=== PATIENT | female | born 1980 | race Caucasian/White ===

== ENCOUNTER 2017-08-10 15:30 | Outpatient (RCR) | payer OTHER, SELFPAY ==
--- NOTE | 2017-07-25 11:10 | HP.PTEVAL_ITS ---
Patient's Visit Information ROMAN LEVIN is a 37 year old F referred to Physical Therapy by Loyda Nieto PA-C with a diagnosis of B LE pain. Date of Evaluation: 07/25/17 Physical Therapist: Ankit Muhammad PT, - Visit Plan Frequency: 1x/Week Duration: 1 Week Plan: Issue orthoics, fit them appropriately into shoe, and edu on orthotic care next visit - Subjective Subjective: Pt reports she has had bilat foot pain for a chronic period of time. Pt reports she has had bilat bunyonectomies performed 4 years ago. 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 Pt reports she has good sensation in her feet. Pt has had orthotics previously. Pt reports she has pain in the bottom of her foot near the arch, and that pain will radiate up to the top of her foot. Pt reports her main goal is to get fit for orthotics this date. 0/10 pain at rest, 5/10 at worst - Pain B foot pain Pain Intensity (Out of 10): 0 Pain Intensity Range: 5 - Objective Palpation: Pt is sore along her spring ligament and platarfascia in B feet. No pbvious deformity. Neuro: B LE sensation is WNL to light touch. Ankle ROM: B ankle DF= 2, PF= 65. MMT: B ankles 5/5 throughout. Leg length: B LE's equal. Gait: Early pronation during stance phase - Goals Goal 1:: Pt will be issued orthotics and edu on proper care for orthotics on next Pt visit Goal Time Frame: 1 Week - Rehabilitation Potential Physical Therapy Diagnosis: Pt has B foot pain and early pronation during stance phase secondary to pes planus in B ft Rehabilitation Potential: Good - Anticipated Interventions Patient/Client Instruction: Educate patient on: Condition, Plan of Care For the Purpose of:: To improve self management Thank you for the opportunity to evaluate your patient. For Medicare and Medicare HMO plans, please review the plan of care and approve it. It will need to be FAXED BACK to us at [phone] for Medicare purposes. Please let me know if there are questions or concerns regarding this plan of care. Physician Signature: Date:
--- NOTE | 2017-08-10 15:53 | HP.PTDCSUM ---
HP - PT D/C Summary It has been my pleasure to treat ROMAN LEVIN under orders from Loyda Nieto PA-C, for the diagnosis of B LE pain for a total of 2 visit(s). Discharge Date: 08/10/17 Please see the following information for a summary of their discharge status. - Subjective Subjective: Pt wants orthotics, has had them before and does not need education. - Pain B foot pain Pain Intensity (Out of 10): 0 - Goals Goal 1:: Pt will be issued orthotics and edu on proper care for orthotics on next Pt visit Goal Progress: Goal Met - Plan Plan: D/C, pt to [facility] she has concerns or questions with the orthotics. - D/C Information Discharge Comments: Pt I in use of her new orthotics and will call for modification if needed. If there are questions or concerns regarding this patient's physical therapy, please feel free to call me at [phone]. Thank you for the referral of this patient. Sincerely, Lisandro Love, DPT, OC
== END 2017-08-10 19:00 | disposition home or self-care (01) ==
LOC: PT 15:30
PROVIDERS: Family Provider Family Medicine; PCP Family Medicine; Visit Provider Family Medicine
DX: M79.604 Pain in right leg (principal); M79.605 Pain in left leg
CPT/HCPCS: 97161; 97760

== ENCOUNTER → 2017-08-22 09:02 | Outpatient (CLI) | payer OTHER, SELFPAY ==
[2017-08-22 10:27] LABS: Thyroid Stim Hormone (TSH) 5.31 uIU/mL (0.358-3.74)
== END ==
PROVIDERS: Family Provider Family Medicine; PCP Family Medicine; Visit Provider Family Medicine
DX: E03.9 Hypothyroidism, unspecified (principal)
CPT/HCPCS: 36415; 84443

== ENCOUNTER → 2017-12-22 07:48 | Outpatient (CLI) | payer OTHER, SELFPAY ==
[2017-12-22 10:27] LABS: Thyroid Stim Hormone (TSH) 3.81 uIU/mL (0.358-3.74)
== END ==
PROVIDERS: Family Provider Family Medicine; PCP Family Medicine; Visit Provider Family Medicine
DX: E03.9 Hypothyroidism, unspecified (principal)
CPT/HCPCS: 36415; 84443

== ENCOUNTER → 2018-02-14 07:40 | Outpatient (CLI) | payer OTHER, SELFPAY ==
--- NOTE | 2018-02-14 | CYSPIN_PTH ---
PATIENT: ROMAN LEVIN LOC: LAB U#:[id number] AGE/SX: 45/F ROOM: RE02/14/[address]: Loyda Nieto PA-C : 1980 BED: DIS: SPEC #: [id number] RECD: 02/14/18 08:28 STATUS: CHERYL MIKA #: [id number] PAULINA: 02/14/18 00:[address]: Loyda Nieto DEPT: CYTOLOGY RECD BY: Kota Garcia Tissues: Urine Procedures: Pap Stain (control) Special Stain Group II Cytospin Fluid HEADER OPERATION: Not noted PRE-OP DIAGNOSIS: Hematuria TISSUE SUBMITTED: Urine for cytology DIAGNOSIS CYTOLOGY Urine for cytology (cytospin): Negative for malignant cells. See cytology study and comment. YULIA:jas 02/15/18 COMMENT Clinical correlation and appropriate follow up are necessary. CYTOLOGY STUDY Slides are reviewed. The specimen predominantly consists of benign squamous cells and neutrophils. CYTOLOGY GROSS Received is 60 ml of yellow cloudy fluid labeled with the patient's name and and designated per the requisition as urine. Submitted for cytology preparation. 02/14/18 TC:2 CPT: 35449
[2018-02-14 07:51] LABS: Cytology, Body Fluid / CSF SEE PATHOLOGY REPORT
== END ==
PROVIDERS: Family Provider Family Medicine; PCP Family Medicine; Visit Provider Family Medicine
DX: R31.9 Hematuria, unspecified (principal)
CPT/HCPCS: 88108; 88313

== ENCOUNTER → 2018-08-01 07:56 | Outpatient (CLI) | payer OTHER, SELFPAY ==
[2018-08-01 09:37] LABS: Thyroid Stim Hormone (TSH) 2.01 uIU/mL (0.358-3.74)
== END ==
PROVIDERS: Family Provider Family Medicine; PCP Family Medicine; Referring Provider Family Medicine; Visit Provider Family Medicine
DX: E03.9 Hypothyroidism, unspecified (principal)
CPT/HCPCS: 36415; 84443

== ENCOUNTER → 2019-10-04 | Outpatient (CLI) | payer OTHER, SELFPAY ==
[2019-10-04 09:34] LABS: Thyroid Stim Hormone (TSH) 3.99 uIU/mL (0.358-3.74)
== END | disposition home or self-care (01) ==
LOC: LAB 07:48
PROVIDERS: PCP Family Medicine; Referring Provider Family Medicine; Visit Provider Family Medicine
DX: E03.9 Hypothyroidism, unspecified (principal)
CPT/HCPCS: 36415; 84443

== ENCOUNTER → 2020-05-07 17:21 | Outpatient (CLI) | payer OTHER, SELFPAY ==
[2020-05-07 18:15] LABS: Thyroid Stim Hormone (TSH) 1.13 uIU/mL (0.358-3.74)
== END ==
PROVIDERS: PCP Family Medicine; Visit Provider Family Medicine
DX: E03.9 Hypothyroidism, unspecified (principal)
CPT/HCPCS: 36415; 84443

== ENCOUNTER → 2020-12-17 12:29 | Outpatient (CLI) | payer OTHER, SELFPAY ==
--- NOTE | 2020-12-17 12:45 | BI_ITS ---
MAMMOGRAPHY - BILATERAL SCREENING REASON FOR EXAM: Female, 40 years old. Routine annual screening examination. PERTINENT HISTORY: Non-contributory. TECHNIQUE: Digital bilateral breast lukas (3D mammographic acquisition) in the CC and MLO projections. 2-D mediolateral oblique (MLO) and craniocaudad (CC) views of both breasts were obtained. CAD: Full Field Digital Mammography with Computer Added Detection was performed. COMPARISON: None. Baseline examination. FINDINGS: Breast Composition: The breasts are extremely dense, which lowers the sensitivity of mammography. There are no dominant masses or suspicious calcifications. No other significant abnormalities are identified. BI/SCRN MAMM (CAD)W/LUKAS BILAT IMPRESSION: Negative screening mammogram. Yearly followup mammogram recommended. (A) ASSESSMENT CATEGORY: BIRADS Category 1: Negative. A letter regarding these results will be sent to the patient by the facility within 30 days. Approximately 10% of breast cancers are not detected by mammography. A normal mammogram should not delay biopsy of a clinically suspicious abnormality. [id number] Electronically Signed: José Antonio Palacios MD at 14:51 EDT , Service support ,
[2020-12-17 14:04] LABS: ALB/GLOB Ratio 1.2 RATIO (0.9-2.4); AST(SGOT) 15 U/L (15-37); Alanine Aminotransfer ALT/SGPT 28 U/L (13-56); Albumin, Serum 3.8 g/dL (3.2-5.0); Alkaline Phosphatase 50 U/L (45-117); Anion Gap 4 (5-15); BUN 8 mg/dL (7-18); BUN/Creat Ratio 10.4 RATIO (10-20); Calcium,Total 8.8 mg/dL (8.5-10.1); Chloride 104 mmol/L (98-107); Cholesterol 183 mg/dL (200); Creatinine, Serum 0.77 mg/dL (0.55-1.02); EST Glomerular Filtration Rate 88 mL/min (>60); Est Glom Filt Rate - Afr Amer 107 mL/min (>60); Globulin 3.3 g/dL (2.2-4.2); Glucose 62 mg/dL (74-106); High Density Lipoprotein 72 mg/dL; Potassium 4.2 mmol/L (3.5-5.1); Protein, Total 7.1 g/dL (6.4-8.2); Sodium Level 137 mmol/L (136-145); Thyroid Stim Hormone (TSH) 1.71 uIU/mL (0.358-3.74); Triglycerides 63 mg/dL; Very Low Density Lipoprotein 13 mg/dL (5-40)
== END ==
PROVIDERS: PCP Family Medicine; Referring Provider Family Medicine; Visit Provider Family Medicine
DX: E03.9 Hypothyroidism, unspecified (principal); Z12.31 Encounter for screening mammogram for malignant neoplasm of breast; Z13.1 Encounter for screening for diabetes mellitus; Z13.220 Encounter for screening for lipoid disorders
CPT/HCPCS: 36415; 77063; 77067; 80053; 80061; 84443

== ENCOUNTER → 2022-01-18 | Outpatient (CLI) | payer OTHER, SELFPAY ==
[2022-01-18 17:21] LABS: Thyroid Stim Hormone (TSH) 1.77 uIU/mL (0.358-3.74)
== END | disposition home or self-care (01) ==
LOC: LAB 16:10
PROVIDERS: PCP Family Medicine; Referring Provider Family Medicine; Visit Provider Family Medicine
DX: E03.9 Hypothyroidism, unspecified (principal)
CPT/HCPCS: 36415; 84443

== ENCOUNTER → 2022-05-13 | Outpatient (CLI) | payer OTHER, SELFPAY ==
--- NOTE | 2022-05-13 14:19 | US_ITS ---
STUDY: SUPERFICIAL ULTRASOUND - LEFT HAND REASON FOR EXAM: Female, 42 years old. HAND NODULE TECHNIQUE: A superficial ultrasound was performed with real-time and static michaels-scale imaging. COMPARISON: None. FINDINGS: Scanning of the area of interest along the palmar aspect of the left hand shows a 1 x 2 x 4 mm ovoid circumscribed hypoechoic thin-walled nodule within the subcutaneous fat; this hypoechoic nodule is nearly anechoic, containing only minimal low-level internal echoes. This lesion is not hyperechoic as with lipoma. The nodule is avascular shows no surrounding hyperemia. US/Ext Non Vasc Limited/Soft Tiss IMPRESSION: Benign-appearing hypoechoic subcutaneous nodule along the palmar aspect of the hand, most likely a small subcutaneous cyst containing minimal internal cellular debris. This lesion does have characteristics of a lipoma. There is no surrounding hyperemia or wall thickening to indicate abscess. Electronically Signed: Med Aguillon MD at 0:50 EST ,
== END | disposition home or self-care (01) ==
LOC: US 14:17
PROVIDERS: PCP Family Medicine; Referring Provider Family Medicine; Visit Provider Family Medicine
DX: R22.30 Localized swelling, mass and lump, unspecified upper limb (principal)
CPT/HCPCS: 76882

== ENCOUNTER → 2023-01-27 | Outpatient (CLI) | payer OTHER, SELFPAY ==
[2023-01-27 18:26] LABS: Absolute Lymphocyte Count 4.73 X10^3/uL (0.83-4.51); Absolute Neutrophil Count 3.9 X10^3/uL (2.0-7.7); Basophil# 0.04 X10^3/uL; Basophil% 0.4 % (0-1); Eosinophils% 1.1 % (0-5); Hematocrit 40.1 % (37-47); Hemoglobin 13.2 g/dL (12.0-15.0); Lymphocyte # 4.73 X10^3/ul (0.83-4.51); Lymphocyte % 50.9 % (19-41); Mean Corp Hgb Conc 32.9 g/dL (32-36); Mean Corpuscular Hgb 30.5 pg (27.0-32.0); Mean Corpuscular Volume 92.6 fL (81-99); Mean Platelet Vol. 11.2 fl (6.2-12.0); Monocyte# 0.49 X10^3/uL; Monocyte% 5.3 % (0-10); NRBC Flagged by Analyzer 0 % (0-5); Neutrophil # 3.92 X10^3/uL (2.7-7.7); Neutrophil % 42.1 % (47-70); Platelet Count 266 K/mm3 (150-450); RBC Distribution Width CV 12.8 % (11.6-14.6); RBC Distribution Width SD 43.8 fl (35.1-43.9); Red Blood Count 4.33 M/mm3 (4.2-5.4); White Blood Count 9.3 K/mm3 (4.4-11.0)
[2023-01-27 19:07] LABS: Thyroid Stim Hormone (TSH) 2.76 uIU/mL (0.358-3.74)
== END | disposition home or self-care (01) ==
LOC: LAB 17:47
PROVIDERS: PCP Family Medicine; Referring Provider Family Medicine; Visit Provider Family Medicine
DX: R79.89 Other specified abnormal findings of blood chemistry (principal); E03.9 Hypothyroidism, unspecified
CPT/HCPCS: 36415; 84443; 85025

== ENCOUNTER 2023-06-13 09:23 | Outpatient (RCR) | payer OTHER, SELFPAY ==
--- NOTE | 2023-06-13 09:54 | HP.PTEVAL ---
Patient's Visit Information Visit Information Visit Information: ROMAN LEVIN is a 43 year old F referred to Physical Therapy by Loyda Nieto PA-C with a diagnosis of s/p bunionectomy. Date of Evaluation: 06/13/23 Physical Therapist: Lisandro Love, DPT, OCS, CSCS Visit Plan Frequency: 2 visits total Plan: DPM orthotics molded and sent out and will call when they come back to fit shoe Subjective Subjective: I had bunionectomy done [address] Cho. Has a couple pairs that are old and broken down. Has some pain in L middle of foot at bootm. Intermittent with being on feet too long. Pain to 4/10 in last weeks and goes away sitting. Activities are pretty normal Wears current ones most of time in work shoes. 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 Pain worse after work. No regular exercises. Objective Objective: Mild pes planus B, transverse arch has flattened B. No tenderness in foot or ankle Full PROM metatrsals and AROM at ankle with 7 degrees DF B and full inv/ev/PF. 5/5 strength ankle motions. Good movement in toes Goals Goal 1:: fit for and I in use of custom orthotics Goal Time Frame: 2-4 Weeks Rehabilitation Potential Physical Therapy Diagnosis: Foot biomechanics that need managed to limit future problems Rehabilitation Potential: Good Anticipated Interventions Patient/Client Instruction: Educate patient on: Condition For the Purpose of:: To decrease pain Orthotics: Shoe insert For the Purpose of:: To decrease pain and To improve nutrient delivery to tissue Text: Thank you for the opportunity to evaluate your patient. For Medicare and Medicare HMO plans, please review the plan of care and approve it. It will need to be FAXED BACK to us at [phone] for Medicare purposes. For Medicare only, by signing this I certify the plan of care. Please let me know if there are questions or concerns regarding this plan of care. Physician Signature: Date:
--- NOTE | 2023-07-05 16:00 | HP.PTDCSUM_ITS ---
Discharge Summary D/C summary: It has been my pleasure to treat ROMAN LEVIN referred by Loyda Nieto PA-C, with the diagnosis of s/p bunionectomy for a total of 2 visit(s). Discharge Date: Please see the following information for a summary of their discharge status. Subjective Subjective: stopped in to [employer] picking supervisor orthotics, declines education appointment or cut to fit. seema had these before Goals Goal 1:: fit for and I in use of custom orthotics Goal Progress: Goal Met Plan Plan: D/C t orthoitc use, pt to call if problems with them. D/C Information d/c sentence: If there are questions or concerns regarding this patient's physical therapy, please feel free to call me at [phone]. Thank you for the referral of this patient. Sincerely, Lisandro Love, DPT, OCS, CSCS
== END 2023-06-13 19:00 | disposition home or self-care (01) ==
LOC: PT 09:23
PROVIDERS: PCP Family Medicine; Referring Provider Family Medicine; Visit Provider Family Medicine
DX: Z98.890 Other specified postprocedural states (principal)
CPT/HCPCS: 97161

== ENCOUNTER → 2024-01-05 | Outpatient (CLI) | payer OTHER, SELFPAY ==
[2024-01-05 13:18] LABS: Thyroid Stim Hormone (TSH) 0.66 uIU/mL (0.358-3.74)
== END | disposition home or self-care (01) ==
LOC: LAB 09:25
PROVIDERS: PCP Family Medicine; Referring Provider Family Medicine; Visit Provider Family Medicine
DX: E03.9 Hypothyroidism, unspecified (principal)
CPT/HCPCS: 36415; 84443

== ENCOUNTER → 2024-01-25 | Outpatient (CLI) | payer OTHER, SELFPAY ==
--- NOTE | 2024-01-25 07:46 | BI_ITS ---
MAMMOGRAPHY - BILATERAL SCREENING REASON FOR EXAM: Female, 43 years old. Routine annual screening examination. PERTINENT HISTORY: Non-contributory. TECHNIQUE: Digital bilateral breast lukas (3D mammographic acquisition) in the CC and MLO projections. 2-D mediolateral oblique (MLO) and craniocaudad (CC) views of both breasts were obtained. CAD: Full Field Digital Mammography with Computer Added Detection was performed. COMPARISON: Comparison is made with prior study December 17, 2020. FINDINGS: Breast Composition: The breasts are extremely dense, which lowers the sensitivity of mammography. There are no dominant masses or suspicious calcifications. No other significant abnormalities are identified. There has been no significant change since the prior study. BI/SCRN MAMM (CAD)W/LUKAS BILAT IMPRESSION: Stable bilateral screening mammogram. Yearly follow-up mammogram recommended. (A) ASSESSMENT CATEGORY: BIRADS Category 1: Negative. A letter regarding these results will be sent to the patient by the facility within 30 days. Approximately 10% of breast cancers are not detected by mammography. A normal mammogram should not delay biopsy of a clinically suspicious abnormality. [id number] Electronically Signed: José Antonio Palacios MD at 8:44 EDT ,
--- NOTE | 2024-01-25 08:09 | RAD_ITS ---
INDICATION: BACK PAIN WITH RADICULOPATHY EXAMINATION/TECHNIQUE: X-RAY - XR Right Hip Unilateral with Pelvis when performed; 3 Views COMPARISON: FINDINGS: PELVIC BONES: No displaced fracture, destructive or sclerotic lesions. Note that overlapping bowel shadows may however obscure fine detail. Sacroiliac joints are unremarkable. No widening of the pubic symphysis. HIPS: The articular structures are unremarkable. No displaced fracture seen in this frontal view. SOFT TISSUES: No soft tissue swelling or gas. RAD/HIP, UNI W/ Pelvis 2-3 Views IMPRESSION: No evidence of displaced pelvic or hip fracture. Electronically Signed: Manohar Dahl DO at 19:51 EDT Reading Location ID and State: [facility] / [place] Tel [phone], Service support ,
--- NOTE | 2024-01-25 08:09 | RAD_ITS ---
STUDY: X-RAY - LUMBAR SPINE REASON FOR EXAM: Female, 43 years old. BACK PAIN WITH RADICULOPATHY TECHNIQUE: 4 view(s) of the lumbar spine were obtained. COMPARISON: None FINDINGS: Normal lumbar lordosis. There is no substantial scoliosis. There is a normal alignment of the vertebrae. Normal vertebral bodies and endplates. Normal disc space heights. The soft tissue structures are unremarkable. RAD/L/S Spine Min 4 Views IMPRESSION: Normal x-ray examination of the lumbar spine. Electronically Signed: Manohar Dahl DO at 21:43 EDT Reading Location ID and State: [facility] / [place] Tel [phone], Service support ,
== END | disposition home or self-care (01) ==
PROVIDERS: PCP Family Medicine; Referring Provider Family Medicine; Visit Provider Family Medicine
DX: Z12.31 Encounter for screening mammogram for malignant neoplasm of breast (principal); M54.10 Radiculopathy, site unspecified
CPT/HCPCS: 72110; 73502; 77063; 77067

== ENCOUNTER → 2024-01-25 | Outpatient (CLI) | payer OTHER, SELFPAY ==
[2024-01-25 09:54] LABS: Absolute Neutrophil Count 3.5 X10^3/uL (2.0-7.7); Basophil# 0.02 X10^3/uL; Basophil% 0.3 % (0-1); Eosinophil# 0.09 X10^3/uL; Eosinophils% 1.5 % (0-5); Lymphocyte % 34.3 % (19-41); Mean Corp Hgb Conc 33.3 g/dL (32-36); Mean Corpuscular Hgb 30.2 pg (27.0-32.0); Mean Corpuscular Volume 90.5 fL (81-99); Mean Platelet Vol. 9.4 fl (6.2-12.0); Monocyte# 0.41 X10^3/uL; Monocyte% 6.7 % (0-10); NRBC Flagged by Analyzer 0 % (0-5); Neutrophil # 3.48 X10^3/uL (2.7-7.7); Neutrophil % 56.9 % (47-70); Platelet Count 320 K/mm3 (150-450); Red Blood Count 4.31 M/mm3 (4.2-5.4); White Blood Count 6.1 K/mm3 (4.4-11.0)
[2024-01-25 10:03] LABS: Erythrocyte Sedimentation Rate < 1 mm/hr (0-30)
[2024-01-25 11:49] LABS: ALB/GLOB Ratio 1.1 RATIO (0.9-2.4); AST(SGOT) 19 U/L (15-37); Alanine Aminotransfer ALT/SGPT 20 U/L (13-56); Albumin, Serum 3.6 g/dL (3.2-5.0); Alkaline Phosphatase 50 U/L (45-117); Anion Gap 5 (5-15); BUN 7 mg/dL (7-18); BUN/Creat Ratio 8.4 RATIO (10-20); CRP < 2.90 mg/L (0.0-3.0); Calcium,Total 8.6 mg/dL (8.5-10.1); Chloride 109 mmol/L (98-107); Creatinine, Serum 0.83 mg/dL (0.55-1.02); EST Glomerular Filtration Rate 80 mL/min (>60); Est Glom Filt Rate - Afr Amer 96 mL/min (>60); Globulin 3.3 g/dL (2.2-4.2); Glucose 73 mg/dL (74-106); Potassium 3.6 mmol/L (3.5-5.1); Protein, Total 6.9 g/dL (6.4-8.2); Sodium Level 139 mmol/L (136-145)
== END | disposition home or self-care (01) ==
LOC: LAB 09:25
PROVIDERS: PCP Family Medicine; Referring Provider Student in an Organized Health Care Education/Training Program; Visit Provider Student in an Organized Health Care Education/Training Program
DX: R19.7 Diarrhea, unspecified (principal)
CPT/HCPCS: 36415; 80053; 82164; 82784; 82785; 83516; 84165; 85025; 85652; 86003; 86005; 86036; 86140; 86225; 86235; 86255; 86256; 86334; 86671

== ENCOUNTER → 2024-01-26 | Outpatient (CLI) | payer OTHER, SELFPAY | END | disposition home or self-care (01) | LOC: LABSPEC 09:13 | PROVIDERS: PCP Family Medicine; Visit Provider Student in an Organized Health Care Education/Training Program | DX: R19.7 Diarrhea, unspecified (principal); K58.9 Irritable bowel syndrome, unspecified | CPT/HCPCS: 82653; 82705; 83630; 83993; 87177; 87209; 87329; 87506 ==

== ENCOUNTER → 2024-02-01 | Outpatient (CLI) | payer OTHER, SELFPAY ==
[2024-02-04 00:08] LABS: Pancreatic Elastase, Fecal > 800 (>200)
== END | disposition home or self-care (01) ==
LOC: LAB 07:21 → LABSPEC 07:22
PROVIDERS: Internal Medicine Gastroenterology; PCP Family Medicine; Referring Provider Student in an Organized Health Care Education/Training Program; Visit Provider Student in an Organized Health Care Education/Training Program
DX: R19.7 Diarrhea, unspecified (principal)
CPT/HCPCS: 82653; 87177; 87209; 87329

== ENCOUNTER → 2024-02-07 | Outpatient (CLI) | payer OTHER, SELFPAY ==
--- NOTE | 2024-02-07 11:15 | US_ITS ---
INDICATION: abdominal pain EXAMINATION: Ultrasound US Abdomen Limited (quadrant) TECHNIQUE: Mendez scale and color doppler imaging was performed of the right upper quadrant. COMPARISON: FINDINGS: LIVER: There is normal echotexture measuring 15.3 cm. No focal hepatic lesion. There is no free fluid. GALLBLADDER AND BILIARY TREE: No shadowing gallstone, pericholecystic fluid or gallbladder wall thickening is demonstrated. The proximal common bile duct measures 5 mm, which is within normal limits for the patient''s age. Songraphic Shay''s sign: Negative. PANCREAS: No focal abnormality is demonstrated in the pancreas. No pancreatic ductal dilatation. RIGHT KIDNEY: 10.4 x 5.7 x 4.2 cm with the cortex is 10 mm. No hydronephrosis. No shadowing calculi. US/Gallbladder IMPRESSION: No acute sonographic abnormality is demonstrated in the right upper quadrant. Electronically Signed: Manohar Dahl DO at 19:10 EDT ,
--- NOTE | 2024-02-07 11:15 | NM_ITS ---
CLINICAL: 43-year-old female with history of chronic nausea. SEMI-SOLID PHASE 99m Tc SULFUR COLLOID GASTRIC EMPTYING STUDY COMPARISON: Gallbladder ultrasound report 02/07/2024 FINDINGS: The patient was administered 1.1 mCi of 99m Tc sulfur colloid mixed with oatmeal and consumed per os. Image acquisitions in the anterior-posterior projections were obtained for 60 minutes. There is prompt visualization of the stomach. There is no gastroesophageal reflux identified. The T ? raw data emptying was calculated to be 35.86 minutes, (Normal: 12-56 minutes). NM/Gastric Emptying Study IMPRESSION: 1. NORMAL 99m Tc sulfur colloid semi-solid phase (oatmeal) gastric emptying imaging examination. A. There is normal and preserved semi-solid phase gastric emptying compared to normal controls. (Beka et al, J Nucl Med Tech 38: 186, 2010). Electronically Signed: Ravinder Fuller DO at 10:41 EDT ,
== END | disposition home or self-care (01) ==
LOC: NM 11:11
PROVIDERS: PCP Family Medicine; Referring Provider Student in an Organized Health Care Education/Training Program; Visit Provider Student in an Organized Health Care Education/Training Program
DX: R10.9 Unspecified abdominal pain (principal); R11.0 Nausea
CPT/HCPCS: 76705; 78264; A9541

== ENCOUNTER → 2024-03-01 | Outpatient (CLI) | payer OTHER, SELFPAY | END | disposition home or self-care (01) | LOC: LAB 14:33 | PROVIDERS: PCP Family Medicine; Referring Provider Family Medicine; Visit Provider Family Medicine | DX: E03.9 Hypothyroidism, unspecified (principal) | CPT/HCPCS: 36415; 84443 ==

== ENCOUNTER 2024-03-22 05:16 | Day surgery (SDC) | payer OTHER, SELFPAY ==
[2024-03-22] VITALS (9 sets, daily range): BP systolic 85–118; BP diastolic 61–73; PULSE 58–67; RESP 14–18; TEMP 35.9–36.2; O2SAT 98–100; BMI 19.3
--- OUTSIDE RECORDS SUMMARY | 2024-03-22 05:18 | XMS RPT_ITS | CCD ---
Author Organization [facility] Care Team Providers Care Marketing Services Vice President Name Role Phone JONNIE REYNOLDS Admitting Unavailable STEELE, JONNIE Attending Unavailable STEELE, JONNIE Primary Care Unavailable STEELE, JONNIE Admitting Unavailable STEELE, JONNIE Attending Unavailable STEELE, JONNIE Primary Care Unavailable Problems Problem Classification Problem Date Documented Da te Episodic/Chronic Other screening for suspected conditions (not mental disorders or infectious disease) (1 source) Other specified abnormal findings of blood chemistry; Translations: [Other specified abnormal findings of blood chemistry] Onset: 01-20-2024 Episodic Thyroid disorders (1 source) Hypothyroidism, unspecified; Translations: [Hypothyroidism, unspecified] Onset: 01-20-2024 Chronic Encounters Encounter Date Encounter Type Care Provider Facility Start: 01-20-2024 ambulatory [facility] Start: 09-07-2023 ambulatory [facility] Payers Date Payer Category Payer Unknown [id number] Unknown [id number] Summary Purpose Family History No Family History Records Found Advance Directives No Advanced Directives Records Found Additional Source Comments INFORMATION SOURCE (unrecogn ized section and content) DATE CREATED AUTHOR 01/22/2024 [facility] FOR RECORDS PERTAINING TO PATIENTS WHO ARE OR HAVE BEEN ENROLLED IN A CHEMICAL DEPENDENCY/SUBSTANCEABUSE PROGRAM, SOME INFORMATION MAY BE OMITTED. This clinical summary was aggregated from multiple sources. Caution should be exercised in using it in the provision of clinical care. This summary normalizes information from multiple sources, and as a consequence, information in this document may materially change the coding, format and clinical context of patient data. In addition, data may be omitted in some cases. CLINICAL DECISIONS SHOULD BE BASED ON THE PRIMARY CLINICAL RECORDS. [facility] [employer] [facility]. provides no warranty or guarantee of the accuracy or completeness of information in this document.
[2024-03-22] MEDS: 0.9% Saline Lock 10 ML Syringe IV (05:57)
[2024-03-22 05:58] LABS: Internal QC Validated? YES +Cl - CLEAR BKGD; Pregnancy, Urine Negative Negative; Record Kit Lot#,Urine Preg 869294
--- NOTE | 2024-03-22 06:24 | PCM.PRE.AN2 ---
ASA Classification* ASA Classification ASA Classification: 2 Assessment & Plan Anesthesia* Anesthesia Assessment Anesthesia Assessment: Discussed sedation and/or anesthesia options, risks, benefits, and alternatives with patient/parents/legal guardian/POA. Questions invited. The patient/parents/legal guardian/POA seems to understand and agrees to proceed with anesthesia plan. Reviewed the physical assessment, medical history, allergy history and patient home medications list prior to surgery/procedure/anesthetic and documented any changes. Performed airway and anesthesia risk assessments. Anesthesia Type Anesthesia Type: MAC History Source History Obtained from:: Patient and Chart Anesthesia Focused Assessment* Temperature: 97.0 F Pulse Rate: 58 Blood Pressure: 118/73 Respiratory Rate: 16 Pulse Ox: 100 Oxygen Delivery Method: Room Air Airway Assessment Mouth opens: >3 cm Mallampati Score: I Teeth Condition: Intact Neck Range of motion (ROM): Full ROM Focused Labs Anesthesia Preop lab: CBC WBC 6.1 K/mm3 (4.4-11.0) 01/25/24 09:32 RBC 4.31 M/mm3 (4.2-5.4) 01/25/24 09:32 Hgb 13.0 g/dL (12.0-15.0) 01/25/24 09:32 Hct 39.0 % (37-47) 01/25/24 09:32 Plt Count 320 K/mm3 (150-450) 01/25/24 09:32 CHEMISTRY Potassium 3.6 mmol/L (3.5-5.1) 01/25/24 09:32 Sodium 139 mmol/L (136-145) 01/25/24 09:32 Phosphorus 3.5 mg/dL (2.5-4.9) 01/05/24 09:37 BUN 7 mg/dL (7-18) 01/25/24 09:32 Creatinine 0.83 mg/dL (0.55-1.02) 01/25/24 09:32 Glucose 73 mg/dL (74-106) L 01/25/24 09:32 TSH 1.720 uIU/mL (0.358-3.740) 03/01/24 14:47 COAG PT 13.0 SECONDS (11.7-14.9) 05/02/14 13:43 Urine Test Negative Negative 03/22/24 05:35 Pre-Assessment Diagnosis/Proposed Procedure Planned Operative Procedure(s): COLONOSCOPY/EGD Anesthesia History Anesthesia History - gleason gear generator: Anesthesia History - gleason gear generator Hx Hospitalization No 03/19/24 11:43 Any Problems With Anesthesia No 03/19/24 11:43 Cholinesterase deficiency No 03/19/24 11:43 You/Your Family Experience No 03/19/24 11:43 fever (hyperthermia) with Relationship Recent Exposure to Contagious No 03/22/24 05:46 Disease Does patient have nerve No 03/19/24 11:43 stimulator Patient instructed to have device shut off --Does patient have Pacemaker No 03/22/24 05:47 or ICD? When Was Last Pacemaker Check QUESTION #4 FULL TEXT: You/Your Family Experience fever (hyperthermia) with Anesthesia Last Oral Intake Last Oral intake: Last Oral Intake NPO since 03:30 03/22/24 05:47 Meds taken in AM with sips of No 03/22/24 05:47 water? Meds patient instructed to take am of surgery Any additional information?: Yes NPO since: 03:30 (sips of water) PONV PONV - gleason gear generator: PONV - gleason gear generator Female Yes 03/19/24 11:43 HX of Motion Sickness Yes 03/19/24 11:43 HX of N/V After Surgery No 03/19/24 11:43 Non-Smoker Yes 03/19/24 11:43 Duration of Surgery greater No 03/19/24 11:43 than 60 minutes Number of Risk Factors 3 03/19/24 11:43 PONV Score Moderate Risk 03/19/24 11:43 Height & Weight Height & Weight: Anesthesia: Height & Weight Height 5 ft 9 in 03/22/24 05:47 Weight: 59.602 kg 03/22/24 05:47 Body Mass Index (BMI) 19.3 03/22/24 05:47 Respiratory Assessment Respiratory Assessment - gleason gear generator: Respiratory Tract Infection Hx - gleason gear generator Hx Respiratory Tract Infection No 03/19/24 11:43 STOP Sleep Apnea STOP Sleep Apnea - gleason gear generator: STOP Sleep Apnea - gleason gear generator Hx Hypertension No 03/19/24 11:43 Hx Sleep Apnea No 03/19/24 11:43 CPAP No 03/19/24 11:43 BIPAP No 03/19/24 11:43 Do you snore loudly (louder No 03/19/24 11:43 than talking or can be heard Do you often feel tired/ No 03/19/24 11:43 fatigued/ sleepy during daytime? Has anyone observed you stop No 03/19/24 11:43 breathing during sleep? STOP Results Negative 03/19/24 11:43 QUESTION #5 FULL TEXT : Do you snore loudly (louder than talking or can be heard through closed doors)? 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 Specify any problems Hx of Preganancy in last 3 No 03/19/24 11:43 Months Nurse Filling Out Transfusion VCHRISTIN 03/19/24 11:43 & Questions: Date: 03/19/24 03/19/24 11:43 Time: 11:44 03/19/24 11:43 Patient unable to answer at this time (ie. confused, unrespo /Reproduction History /Reproductive History - gleason gear generator: /Reproductive Hx- gleason gear generator Hx Now No 03/19/24 11:43 Gestational Age (in weeks): EDC: Hx Hx Para Hx Section SAB No 03/19/24 11:43 Active Medications Active Medications: Current Medications Generic Name Dose Route Start Last Admin Trade Name Freq PRN Reason Stop Dose Admin Sodium Chloride 10 - 40 ml 03/22/24 05:55 03/22/24 05:57 0.9% Saline Lock 10 Ml Syringe IV 10 ml UD PRN Administration SALINE FLUSH PFSH Medical History (Updated 03/19/24 @ 11:43 by Hallie Romero) Wears contact lenses Wears glasses Thyroid disease Easy bruising Blood disorder Back pain Migraine headache Difficulty swallowing Gastric reflux History of irregular heartbeat Atypical nevus of axilla Abdominal cramping in left upper quadrant Hematuria Lymphadenopathy Hyperactive bowel sounds Hypothyroidism Migraine syndrome GERD (gastroesophageal reflux disease) Home Medications ?Medication ?Instructions ?Recorded ?Last Taken ?Type ondansetron 4 mg disintegrating 4 mg PO Q8H 10/21/23 03/17/24 History tablet terconazole 80 mg vaginal 1 supp vaginal QHS PRN PRN 10/21/23 Unknown History suppository cyclobenzaprine 5 mg tablet 5 mg PO DAILY PRN ABD DISCOMFORT 01/25/24 Unknown History dicyclomine 10 mg capsule 10 mg PO BID PRN abdominal pain 01/25/24 03/17/24 Rx #30 caps levothyroxine 75 mcg tablet 75 mcg PO DAILY 03/19/24 03/21/24 History Allergy/AdvReac Type Severity Reaction Status Date / Time No Known Allergies Allergy Verified 03/22/24 05:43 Surgical History (Updated 03/19/24 @ 11:43 by Hallie Romero) History of bunionectomy of both great toes Social History (Updated 10/21/23 @ 09:15 by Marcie Mckoy LPN) household members: spouse and children number of children: 2 leisure activities: exercise Smoking Status: Never smoker alcohol intake: current alcohol intake frequency: holidays/special occasions only Review of Systems (Anesthesia) ROS Narrative System reviewed and no additional complaints, except as documented.
--- NOTE | 2024-03-22 06:30 | COLBX_PTH ---
PATHOLOGY RESULTS PATIENT: ROMAN LEVIN LOC: EN U#:[id number] AGE/SX: 43/F ROOM: RE03/22/[address]: Dr. Ry Tirado DO : 1980 BED: DIS: 03/22/2024 SPEC #: [id number] RECD: 03/22/24 10:43 STATUS: CHERYL REYasmin #: [id number] PAULINA: 03/22/24 06:[address]: Ry Tirado DEPT: SURGICAL PATHOLOGY RECD BY: Judd Hargrove ENTERED: 03/22/24 11:42 SP TYPE: COLON BX OTHR DR: Loyda Nieto PA-C Tissues: Duodenum, NOS Gastric mucous membrane Esophagus, NOS Ileum, NOS COLON BIOPSY Procedures: Special Stain Group I Surgery Specimen Level IV Alcian Blue/PAS (control) HEADER OPERATION: Colonoscopy, EGD with biopsy PRE-OP DIAGNOSIS: GI symptoms including diarrhea, bloating, nausea, rectal pain, heartburn, and dysphagia TISSUE SUBMITTED: A - Duodenum biopsy, B- Gastric body biopsy, C- Distal esophagus biopsy, D- Terminal ileum biopsy, E- Random colonic biopsy MICROSCOPIC DIAGNOSIS A. Duodenum, biopsy: Fragments of duodenal mucosa, no pathologic diagnosis. B. Gastric body, biopsy: Mild gastritis. See microscopic description and comment. C. Distal esophagus, biopsy: Fragments of gastroesophageal mucosa with chronic inflammation. Intestinal metaplasia (goblet cell metaplasia) not identified. See comment. D. Terminal ileum, biopsy: A fragment of small intestinal mucosa, no pathologic diagnosis. A fragment of colonic mucosa, no pathologic diagnosis. E. Colon, random biopsy: Fragments of colonic mucosa, no pathologic diagnosis. 03/23/2024 COMMENT B. The results of immunohistochemistry for Helicobacter pylori will be reported separately ([id number]). C. Alcian blue/PAS stain with matched control is used in the evaluation of the specimen. MICROSCOPIC DESCRIPTION Slides are reviewed. B. The specimen shows fragments of gastric mucosa with chronic inflammatory cell infiltrates in the lamina propria consisting of lymphocytes and plasma cells, consistent with mild chronic gastritis. GROSS DESCRIPTION A. Received in fixative is one container labeled with the patient's name and designated Duodenum biopsy. The specimen consists of multiple irregular fragments of light waddell soft tissue that in aggregate measure 0.8 x 0.8 x 0.1 cm. The specimen is totally submitted in one cassette. B. Received in fixative is one container labeled with the patient's name and designated Gastric body biopsy. The specimen consists of multiple irregular fragments of light waddell soft tissue that in aggregate measure 1.0 x 0.5 x 0.1 cm. The specimen is totally submitted in one cassette. C. Received in fixative is one container labeled with the patient's name and designated Distal esophagus biopsy. The specimen consists of multiple irregular fragments of light waddell soft tissue that in aggregate measure 0.6 x 0.2 x 0.1 cm. The specimen is totally submitted in one cassette. D. Received in fixative is one container labeled with the patient's name and designated Terminal ileum biopsy. The specimen consists of two irregular fragments of light waddell soft tissue that in aggregate measure 1.0 x 0.3 x 0.1 cm. The specimen is totally submitted in one cassette. E. Received in fixative is one container labeled with the patient's name and designated Random colonic biopsy. The specimen consists of multiple irregular fragments of light waddell soft tissue that in aggregate measure 2.0 x 0.5 x 0.1 cm. The specimen is totally submitted in one cassette. SJ 03/22/2024 TC:2 CPT:66239u1,67117
--- NOTE | 2024-03-22 06:30 | IMM_PTH ---
PATHOLOGY RESULTS PATIENT: ROMAN LEVIN LOC: EN U#:[id number] AGE/SX: 43/F ROOM: RE03/22/[address]: Dr. Ry Tirado DO : 1980 BED: DIS: 03/22/2024 SPEC #: [id number] RECD: 03/22/24 11:20 STATUS: CHERYL REQ #: [id number] PAULINA: 03/22/24 06:[address]: Ry Tirado DEPT: IMMUNOHISTOCHEMISTRY RECD BY: Shaw Mario ENTERED: 03/22/24 11:20 SP TYPE: IMMUNO OTHR DR: Loyda Nieto PA-C Tissues: Gastric mucous membrane Procedures: H Pylori (initial) PHYSICIAN & INSTITUTION [place] [id number] SPECIMEN INFORMATION: Tissue Source: B- Gastric body biopsy Clinical Info: GI symptoms including diarrhea, bloating and nausea Specimen Number: [id number] CPT code: 48329 METHODOLOGY: Deparaffinized sections of prefer/formalin-fixed tissue or PAP/DQ stained slides are incubated with monoclonal/polyclonal antibodies/oligonucleotide probes. Localization is made via biotin free immunoperoxidase method. Appropriate controls are performed and reacted as expected. Results on target cell population are indicated in the following table: RESULTS: ANTIBODY / CLONE RESULT Block B H Pylori (polyclonal) negative These tests were developed and their performance characteristics determined by [facility]. They may not have been cleared or approved by the U.S. Food and Drug Administration. The FDA has determined that such clearance or approval is not necessary. The above immunohistochemical/dualISH markers are ordered and reviewed by the Pathologist. INTERPRETATION: B. Gastric body, biopsy: Negative for Helicobacter pylori organisms. 03/23/2024
--- NOTE | 2024-03-22 06:35 | PCM.PRE.AN2 ---
ASA Classification* ASA Classification ASA Classification: 2 Assessment & Plan Anesthesia* Anesthesia Assessment Anesthesia Assessment: Discussed sedation and/or anesthesia options, risks, benefits, and alternatives with patient/parents/legal guardian/POA. Questions invited. The patient/parents/legal guardian/POA seems to understand and agrees to proceed with anesthesia plan. Reviewed the physical assessment, medical history, allergy history and patient home medications list prior to surgery/procedure/anesthetic and documented any changes. Performed airway and anesthesia risk assessments. Anesthesia Type Anesthesia Type: MAC History Source History Obtained from:: Patient and Chart Anesthesia Focused Assessment* Temperature: 97.0 F Pulse Rate: 58 Blood Pressure: 118/73 Respiratory Rate: 16 Pulse Ox: 100 Airway Assessment Mouth opens: >3 cm Mallampati Score: II Teeth Condition: Intact Neck Range of motion (ROM): Full ROM Focused Labs Anesthesia Preop lab: CBC WBC 6.1 K/mm3 (4.4-11.0) 01/25/24 09:32 RBC 4.31 M/mm3 (4.2-5.4) 01/25/24 09:32 Hgb 13.0 g/dL (12.0-15.0) 01/25/24 09:32 Hct 39.0 % (37-47) 01/25/24 09:32 Plt Count 320 K/mm3 (150-450) 01/25/24 09:32 CHEMISTRY Potassium 3.6 mmol/L (3.5-5.1) 01/25/24 09:32 Sodium 139 mmol/L (136-145) 01/25/24 09:32 Phosphorus 3.5 mg/dL (2.5-4.9) 01/05/24 09:37 BUN 7 mg/dL (7-18) 01/25/24 09:32 Creatinine 0.83 mg/dL (0.55-1.02) 01/25/24 09:32 Glucose 73 mg/dL (74-106) L 01/25/24 09:32 TSH 1.720 uIU/mL (0.358-3.740) 03/01/24 14:47 COAG PT 13.0 SECONDS (11.7-14.9) 05/02/14 13:43 Urine Test Negative Negative 03/22/24 05:35 Pre-Assessment Diagnosis/Proposed Procedure Planned Operative Procedure(s): COLONOSCOPY/EGD Anesthesia History Anesthesia History - sample preparation supervisor: Anesthesia History - sample preparation supervisor Hx Hospitalization No 03/19/24 11:43 Any Problems With Anesthesia No 03/19/24 11:43 Cholinesterase deficiency No 03/19/24 11:43 You/Your Family Experience No 03/19/24 11:43 fever (hyperthermia) with Relationship Recent Exposure to Contagious No 03/22/24 05:46 Disease Does patient have nerve No 03/19/24 11:43 stimulator Patient instructed to have device shut off --Does patient have Pacemaker No 03/22/24 05:47 or ICD? When Was Last Pacemaker Check QUESTION #4 FULL TEXT: You/Your Family Experience fever (hyperthermia) with Anesthesia Last Oral Intake Last Oral intake: Last Oral Intake NPO since 03:30 03/22/24 06:32 Meds taken in AM with sips of No 03/22/24 05:47 water? Meds patient instructed to take am of surgery PONV PONV - sample preparation supervisor: PONV - sample preparation supervisor Female Yes 03/19/24 11:43 HX of Motion Sickness Yes 03/19/24 11:43 HX of N/V After Surgery No 03/19/24 11:43 Non-Smoker Yes 03/19/24 11:43 Duration of Surgery greater No 03/19/24 11:43 than 60 minutes Number of Risk Factors 3 03/19/24 11:43 PONV Score Moderate Risk 03/19/24 11:43 Height & Weight Height & Weight: Anesthesia: Height & Weight Height 5 ft 9 in 03/22/24 05:47 Weight: 59.602 kg 03/22/24 05:47 Body Mass Index (BMI) 19.3 03/22/24 05:47 Respiratory Assessment Respiratory Assessment - sample preparation supervisor: Respiratory Tract Infection Hx - sample preparation supervisor Hx Respiratory Tract Infection No 03/19/24 11:43 STOP Sleep Apnea STOP Sleep Apnea - sample preparation supervisor: STOP Sleep Apnea - sample preparation supervisor Hx Hypertension No 03/19/24 11:43 Hx Sleep Apnea No 03/19/24 11:43 CPAP No 03/19/24 11:43 BIPAP No 03/19/24 11:43 Do you snore loudly (louder No 03/19/24 11:43 than talking or can be heard Do you often feel tired/ No 03/19/24 11:43 fatigued/ sleepy during daytime? Has anyone observed you stop No 03/19/24 11:43 breathing during sleep? STOP Results Negative 03/19/24 11:43 QUESTION #5 FULL TEXT : Do you snore loudly (louder than talking or can be heard through closed doors)? Tobacco Use History Tobacco Use History - sample preparation supervisor: Tobacco Use History - sample preparation supervisor Tobacco Use Smoking Status Never smoker 03/19/24 11:43 Hx Tobacco Use No 03/19/24 11:43 Years Smoking Packs Smoked per Day Smoking Cessation Date was within the last 15 years Hx Smoking Cessation Date Hx Smoking Cessation Counseling Hematologic Medial History Hematologic Hx - sample preparation supervisor: Hematologic Medical Hx - rn recruitment Hx of Blood Transfusion No 03/19/24 11:43 Hx of Transfusion in last 3 No 03/19/24 11:43 Months Date of Last Transfusion (if within last 3 months) Ever experience any problems No 03/19/24 11:43 with transfusion(s)? Specify any problems Hx of Preganancy in last 3 No 03/19/24 11:43 Months Nurse Filling Out Transfusion VCHRISTIN 03/19/24 11:43 & Questions: Date: 03/19/24 03/19/24 11:43 Time: 11:44 03/19/24 11:43 Patient unable to answer at this time (ie. confused, unrespo /Reproduction History /Reproductive History - sample preparation supervisor: /Reproductive Hx- sample preparation supervisor Hx Now No 03/19/24 11:43 Gestational Age (in weeks): EDC: Hx Hx Para Hx Section SAB No 03/19/24 11:43 Active Medications Active Medications: Current Medications Generic Name Dose Route Start Last Admin Trade Name Freq PRN Reason Stop Dose Admin Sodium Chloride 10 - 40 ml 03/22/24 05:55 03/22/24 05:57 0.9% Saline Lock 10 Ml Syringe IV 10 ml UD PRN Administration SALINE FLUSH PFSH Medical History Wears contact lenses Wears glasses Thyroid disease Easy bruising Blood disorder Back pain Migraine headache Difficulty swallowing Gastric reflux History of irregular heartbeat Atypical nevus of axilla Abdominal cramping in left upper quadrant Hematuria Lymphadenopathy Hyperactive bowel sounds Hypothyroidism Migraine syndrome GERD (gastroesophageal reflux disease) Home Medications ?Medication ?Instructions ?Recorded ?Last Taken ?Type ondansetron 4 mg disintegrating 4 mg PO Q8H 10/21/23 03/17/24 History tablet terconazole 80 mg vaginal 1 supp vaginal QHS PRN PRN 10/21/23 Unknown History suppository cyclobenzaprine 5 mg tablet 5 mg PO DAILY PRN ABD DISCOMFORT 01/25/24 Unknown History dicyclomine 10 mg capsule 10 mg PO BID PRN abdominal pain 01/25/24 03/17/24 Rx #30 caps levothyroxine 75 mcg tablet 75 mcg PO DAILY 03/19/24 03/21/24 History Allergy/AdvReac Type Severity Reaction Status Date / Time No Known Allergies Allergy Verified 03/22/24 05:43 Surgical History History of bunionectomy of both great toes Social History household members: spouse and children number of children: 2 leisure activities: exercise Smoking Status: Never smoker alcohol intake: current alcohol intake frequency: holidays/special occasions only Review of Systems (Anesthesia) ROS Narrative System reviewed and no additional complaints, except as documented.
--- NOTE | 2024-03-22 06:38 | HP.PCM_ITS ---
History and Physical Date of Admission: 03/22/24 ROMAN LEVIN, is a 43 F who presents to the office today for establishment with [facility]. She has a long history of GI problems including diarrhea, constipation, abdominal pain, heartburn and dysphagia to liquids. These symptoms have been around for 15 years but have become worse over the past 2 years. She has had to take off work and miss her children's events due to diarrhea. She has to pack extra pair of clothes in case she has diarrhea. She has identified some food triggers including onions, garlic, greasy foods and diary. She is constantly nauseous and feels she has abnormal bowel sounds. When she is having a lot of diarrhea she will have severe rectal pain that she has almost gone to the ED for. She denies ever having work up for autoimmune disease. She has never had an EGD or colonoscopy. ROS Const Constitutional: Positive for fatigue and headache(s); No fever(s) or weight change ENT ENT: Positive for headache(s) and difficulty swallowing Gastro GI: Positive for abdominal pain, bloating, constipation, diarrhea, heartburn, difficulty swallowing, excessive flatus and nausea/dyspepsia; No belching, change in bowel habits, change in stool character, coffee ground emesis, cramping, feeling full early, incontinent of stools, Vomiting blood/hematemesis, Blood in stool, loose stools, Black,tarry stools, pain with swallowing, vomiting or other Musc Musculoskeletal: Positive for back pain; No joint pain Skin Skin: No yellowing of the eye or itchy eyes Neuro Neurology: Positive for headache(s) Psych Psychiatric: No anxiety and No depression Endo Endocrine: Positive for fatigue; No weight change Aller/Imm Allergy/Immunologic: No itchy eyes Jaime/Lymp Hematologic/Lymphatic: Positive for easy bruising; No easy bleeding Exam Const General: cooperative and comfortable Nutritional Appearance: average body habitus and well nourished HENOK Head: normal to inspection Ears: hearing grossly normal bilaterally Nose: external nose normal Face and sinus: normal facial exam Eyes General: appearance normal, both eyes and all related structures Neck Neck: normal visual inspection Chest Chest palpation & inspection: normal inspection of the chest Resp Effort & Inspection: normal respiratory effort Auscultation: Bilateral: Clear to Auscultation Cardio Palpation: normal PMI GI Inspection: normal to inspection Palpation: no hepatosplenomegaly Skin General: no rashes or lesions noted Neuro General: patient alert Extrem General: normal to inspection Psych Affect: normal affect Assessment and Plan Assessment and Plan (1) Chronic diarrhea: Status: Chronic Plan: Patient is here today for establishment with [facility]. She has an extensive hx of GI symptoms including diarrhea, bloating, nausea, rectal pain, heartburn and dysphagia. She has never had a complete GI work up. Differential diagnosis includes IBD, IBS, EPI, SIBO, gastroparesis, or celiac disease. -We will order blood work; CRP, ESR, CBC, CMP, celiac, IBD, ANCA -Stool tests; lactoferrin, calprotectin, enteric pathogen, c.dif, Giardia -Ordered GES to rule out gastroparesis or dumping -Ordered gallbladder US to rule out functional gallbladder disorder -She would like to get an EGD and colonoscopy. We will schedule this for her -Prescribed dicyclomine for rectal and abdominal pain. She has taken hyoscyamine in the past but made her feel dry. She will try taking it as needed instead of scheduled. -She will f/u in 3 months and we will call her in the mean time to review results (2) Diarrhea: Status: Acute Orders: Orders CBC W/Diff, Automated Today R19.7 - Diarrhea, unspecified ANCA Today R19.7 - Diarrhea, unspecified Angiotensin Convert Enzyme Today R19.7 - Diarrhea, unspecified Anti-Mitochondrial AB Today R19.7 - Diarrhea, unspecified Anti-Smooth Muscle ABS Today R19.7 - Diarrhea, unspecified Celiac Disease Profile Today R19.7 - Diarrhea, unspecified Comprehensive Metabolic Profil Today R19.7 - Diarrhea, unspecified CRP Today R19.7 - Diarrhea, unspecified Erythrocyte Sed Rate Today R19.7 - Diarrhea, unspecified Allergen, Food Profile 14 Today R19.7 - Diarrhea, unspecified HIRO Comprehensive Panel Today R19.7 - Diarrhea, unspecified Calprotectin, Stool Today R19.7 - Diarrhea, unspecified Immunoglobulins G/A/M/E Today R19.7 - Diarrhea, unspecified Ova and Parasites 8623 Today K58.9 - Irritable bowel syndrome without diarrhea, R19.7 - Diarrhea, unspecified Pancreatic Elastase, Fecal Today R19.7 - Diarrhea, unspecified Stool Lactoferrin/WBC Today K58.9 - Irritable bowel syndrome without diarrhea, R19.7 - Diarrhea, unspecified Giardia Lamblia, Stool EIA Today R19.7 - Diarrhea, unspecified IBD Expanded Profile Today R19.7 - Diarrhea, unspecified MIYA + Protein Elect, Serum Today R19.7 - Diarrhea, unspecified ENTERIC PATHOGEN PANEL STOOL Today K58.9 - Irritable bowel syndrome without diarrhea, R19.7 - Diarrhea, unspecified Fecal Fat, Qualitative Today R19.7 - Diarrhea, unspecified CDIFF (PCR) Today R19.7 - Diarrhea, unspecified Gastric Emptying Study Today R11.0 - Nausea Gallbladder Today R10.9 - Unspecified abdominal pain Medications: New dicyclomine 10 mg PO BID PRN 30 caps 1RF abdominal pain I have examined the patient and the H&P has been reviewed. There are no clinical changes since date of exam.
--- NOTE | 2024-03-22 07:30 | OP.CCLET_ITS ---
03/22/2024 [facility] Re : Upper GI endoscopy procedure for Pastor Nieto This procedure was performed on February. My impressions and recommendations are as follows: Impressions : - Z-line irregular, 40 cm from the incisors. Biopsied. - Bile gastritis. Biopsied. - Erythematous duodenopathy. Biopsied. Recommendations : - Discharge patient to home. - Resume previous diet. - Continue present medications. - Await pathology results. My findings are described in the full procedure note, which is enclosed. If I can be of further assistance, please feel free to contact me at . Sincerely, Ry Tirado, 03/22/2024 7:29:40 AM This report has been signed electronically.
--- NOTE | 2024-03-22 07:30 | OP.EGD_ITS ---
Patient Name: Pastor Barnett Procedure Date: 03/22/2024 6:47 AM Date of : 1980 Age: 43 Procedure: Upper GI endoscopy Indications: Epigastric abdominal pain, Functional Dyspepsia, Heartburn, Suspected esophageal reflux Providers: Ry Tirado DO Medicines: Monitored Anesthesia Care Patient Profile: This is a 43 year old female. Refer to note in patient chart for documentation of history and physical. Patient has symptoms of chronic abdominal cramping, chronic epigastric abdominal pain and chronic dyspepsia. Complications: No immediate complications. Procedure: Pre-Anesthesia Assessment: - Prior to the procedure, a History and Physical was performed, and patient medications and allergies were reviewed. The patient is competent. The risks and benefits of the procedure and the sedation options and risks were discussed with the patient. All questions were answered and informed consent was obtained. Patient identification and proposed procedure were verified by the physician in the pre-procedure area. Mental Status Examination: alert and oriented. Airway Examination: normal oropharyngeal airway and neck mobility. Respiratory Examination: clear to auscultation. CV Examination: normal. Prophylactic Antibiotics: The patient does not require prophylactic antibiotics. Prior Anticoagulants: The patient has taken no anticoagulant or antiplatelet agents except for NSAID medication. ASA Grade Assessment: II - A patient with mild systemic disease. After reviewing the risks and benefits, the patient was deemed in satisfactory condition to undergo the procedure. The anesthesia plan was to use monitored anesthesia care (MAC). Immediately prior to administration of medications, the patient was re-assessed for adequacy to receive sedatives. The heart rate, respiratory rate, oxygen saturations, blood pressure, adequacy of pulmonary ventilation, and response to care were monitored throughout the procedure. The physical status of the patient was re-assessed after the procedure. After obtaining informed consent, the endoscope was passed under direct vision. Throughout the procedure, the patient's blood pressure, pulse, and oxygen saturations were monitored continuously. The colonoscope was introduced through the mouth, and advanced to the second part of duodenum. The upper GI endoscopy was accomplished without difficulty. The patient tolerated the procedure well. Scope In: 6:51:45 AM Scope Out: 7:00:10 AM Total Procedure Duration Time 0 hours 8 minutes 25 seconds Findings: The Z-line was irregular and was found 40 cm from the incisors. Biopsies were taken with a cold forceps for histology. Verification of patient identification for the specimen was done. Estimated blood loss was minimal. Diffuse moderate inflammation characterized by congestion (edema), erosions and erythema was found in the gastric body. Biopsies were taken with a cold forceps for histology. Verification of patient identification for the specimen was done. Estimated blood loss was minimal. Biopsies were taken with a cold forceps for Helicobacter pylori testing. Verification of patient identification for the specimen was done. Estimated blood loss was minimal. Patchy mildly erythematous mucosa without active bleeding and with no stigmata of bleeding was found in the duodenal bulb and in the first portion of the duodenum. Biopsies were taken with a cold forceps for histology. Verification of patient identification for the specimen was done. Estimated blood loss was minimal. Impression: - Z-line irregular, 40 cm from the incisors. Biopsied. - Bile gastritis. Biopsied. - Erythematous duodenopathy. Biopsied. Recommendation: - Discharge patient to home. - Resume previous diet. - Continue present medications. - Await pathology results. Procedure Code(s): --- Professional --- 38399, Esophagogastroduodenoscopy, flexible, transoral; with biopsy, single or multiple CPT copyright 2021 [employer]. All rights reserved. The codes documented in this report are preliminary and upon door liner helper review may be revised to meet current compliance requirements. Ry Tirado DO 03/22/2024 7:29:40 AM This report has been signed electronically. Number of Addenda: 0 Note Initiated On: 03/22/2024 6:47 AM
--- NOTE | 2024-03-22 07:31 | PCM.POST.ANE ---
Anesthesia: Postop Eval I Current Vital Signs Temperature: 97 F Pulse Rate: 67 Blood Pressure: 89/61 Respiratory Rate: 16 Pulse Ox: 98 Oxygen Delivery Method: Room Air Assessment Airway patent: Yes Spontaneous unlabored respirations: Yes Mental status: Asleep nausea: No Vomiting: No Anesthesia Complication: No Fluid Hydration Crystalloid volume administer (ml): 60 Total IV fluid infused: 60 Progress Note Anesthesia document: Postop Eval 1 completed: Yes
--- NOTE | 2024-03-22 07:34 | OP.COLON_ITS ---
Patient Name: Pastor Barnett Procedure Date: 03/22/2024 7:00 AM Date of : 1980 Age: 43 Procedure: Colonoscopy Indications: This is the patient's first colonoscopy, Clinically significant diarrhea of unexplained origin Providers: Ry Tirado DO Medicines: Monitored Anesthesia Care Patient Profile: This is a 43 year old female. Refer to note in patient chart for documentation of history and physical. Patient has symptoms of chronic abdominal cramping, chronic epigastric abdominal pain and chronic dyspepsia. Last Colonoscopy: none. The patient's first colonoscopy is today. Complications: No immediate complications. Procedure: Pre-Anesthesia Assessment: - Prior to the procedure, a History and Physical was performed, and patient medications and allergies were reviewed. The patient is competent. The risks and benefits of the procedure and the sedation options and risks were discussed with the patient. All questions were answered and informed consent was obtained. Patient identification and proposed procedure were verified by the physician in the pre-procedure area. Mental Status Examination: alert and oriented. Airway Examination: normal oropharyngeal airway and neck mobility. Respiratory Examination: clear to auscultation. CV Examination: normal. Prophylactic Antibiotics: The patient does not require prophylactic antibiotics. Prior Anticoagulants: The patient has taken no anticoagulant or antiplatelet agents except for NSAID medication. ASA Grade Assessment: II - A patient with mild systemic disease. After reviewing the risks and benefits, the patient was deemed in satisfactory condition to undergo the procedure. The anesthesia plan was to use monitored anesthesia care (MAC). Immediately prior to administration of medications, the patient was re-assessed for adequacy to receive sedatives. The heart rate, respiratory rate, oxygen saturations, blood pressure, adequacy of pulmonary ventilation, and response to care were monitored throughout the procedure. The physical status of the patient was re-assessed after the procedure. After I obtained informed consent, the scope was passed under direct vision. Throughout the procedure, the patient's blood pressure, pulse, and oxygen saturations were monitored continuously. The colonoscope was introduced through the anus and advanced to the terminal ileum. The colonoscopy was performed without difficulty. The patient tolerated the procedure well. The quality of the bowel preparation was adequate. The terminal ileum, ileocecal valve, appendiceal orifice, and rectum were photographed. Scope In: 7:01:03 AM Scope Out: 7:17:16 AM Total Procedure Duration Time 0 hours 16 minutes 13 seconds Findings: The perianal and digital rectal examinations were normal. A segmental area of mildly congested and inflamed mucosa was found in the sigmoid colon, in the transverse colon, in the ascending colon and in the cecum. Biopsies were taken with a cold forceps for histology. Verification of patient identification for the specimen was done. Estimated blood loss was minimal. The terminal ileum appeared normal. Biopsies were taken with a cold forceps for histology. Verification of patient identification for the specimen was done. Estimated blood loss was minimal. Impression: - Congested and inflamed mucosa in the sigmoid colon, in the transverse colon, in the ascending colon and in the cecum. Biopsied. - The examined portion of the ileum was normal. Biopsied. Recommendation: - Discharge patient to home. - Resume previous diet. - Continue present medications. - Await pathology results. - Repeat colonoscopy in 10 years for screening purposes. Procedure Code(s): --- Professional --- 06694, Colonoscopy, flexible; with biopsy, single or multiple CPT copyright 2021 [employer]. All rights reserved. The codes documented in this report are preliminary and upon dev ops engineer review may be revised to meet current compliance requirements. Ry Tirado DO 03/22/2024 7:34:43 AM This report has been signed electronically. Number of Addenda: 0 Note Initiated On: 03/22/2024 7:00 AM
--- NOTE | 2024-03-22 07:35 | OP.CCLET_ITS ---
03/22/2024 [facility] Re : Colonoscopy procedure for Pastor Nieto This procedure was performed on February. My impressions and recommendations are as follows: Impressions : - Congested and inflamed mucosa in the sigmoid colon, in the transverse colon, in the ascending colon and in the cecum. Biopsied. - The examined portion of the ileum was normal. Biopsied. Recommendations : - Discharge patient to home. - Resume previous diet. - Continue present medications. - Await pathology results. - Repeat colonoscopy in 10 years for screening purposes. My findings are described in the full procedure note, which is enclosed. If I can be of further assistance, please feel free to contact me at . Sincerely, Ry Tirado, 03/22/2024 7:34:43 AM This report has been signed electronically.
--- NOTE | 2024-03-22 07:40 | PCM.POSTANE2 ---
Anesthesia Postop Eval I Sum Postop Eval Completion status Anesthesia document: Postop Eval 1 completed: Yes Anesthesia Postop Eval I Summary Anesthesia Postop Eval I Summary: Anesthesia Postop Eval I: Assessment Summary Airway patent Yes 03/22/24 07:31 [email or web address] Spontaneous unlabored Yes 03/22/24 07:31 [email or web address] respirations Mental status Asleep 03/22/24 07:31 [email or web address] nausea No 03/22/24 07:31 [email or web address] Vomiting No 03/22/24 07:31 [email or web address] Anesthesia Postop Eval I: Fluid Summary Crystalloid volume administer 60 03/22/24 07:31 [email or web address] (ml) Colloids volume administered ( ml) Blood Product volume administered (ml) Total IV fluid infused 60 03/22/24 07:31 [email or web address] Anesthesia Postop Eval I: Summary Notes Anesthesia Complication No 03/22/24 07:31 [email or web address] Anesthesia Complication Comment: Post-operative progress note Anesthesia: Postop Eval II Evaluation Mental status: Awake Pain Level: 0 nausea: No Vomiting: No
== END 2024-03-22 08:41 | disposition home or self-care (01) ==
LOC: EN 05:17 → AC 06:23
PROVIDERS: Anesthesiology; PCP Family Medicine; Referring Provider Family Medicine; Visit Provider Internal Medicine Gastroenterology
PROC: 0DJD8ZZ Inspection of Lower Intestinal Tract, Via Natural or Artificial Opening Endoscopic (ICD-10-PCS; CPT 45378; principal; 2024-03-22 06:25)
DX: K52.9 Noninfective gastroenteritis and colitis, unspecified (principal); K29.70 Gastritis, unspecified, without bleeding; Z79.890 Hormone replacement therapy; K21.00 Gastro-esophageal reflux disease with esophagitis, without bleeding; E03.9 Hypothyroidism, unspecified; Z79.899 Other long term (current) drug therapy
CPT/HCPCS: 45380; 43239; 81025; 88305; 88312; 88342; A4216; J2405

== ENCOUNTER → 2024-12-11 | Outpatient (CLI) | payer OTHER, SELFPAY ==
--- NOTE | 2024-12-11 14:22 | RAD_ITS ---
PROCEDURE: CERV SPINE 4 OR 5 VIEWS 12/11/2024 REASON FOR EXAM: NECK PAIN TECHNIQUE: CERV SPINE 4 OR 5 VIEWS COMPARISON: None. FINDINGS: No evidence of fracture or subluxation. Alignment is anatomic, likely with mild positional straightening of the cervical lordosis. No significant spondylotic changes are appreciated. No osseous neural foraminal narrowing is present. No prevertebral soft tissue swelling. Clear lung apices. RAD/Cerv Spine 4 or 5 Views IMPRESSION: No evidence of fracture, subluxation, or significant degenerative changes. Reading Location: [id number]
--- NOTE | 2024-12-11 14:22 | RAD_ITS ---
PROCEDURE: CERV SPINE 4 OR 5 VIEWS 12/11/2024 REASON FOR EXAM: NECK PAIN TECHNIQUE: CERV SPINE 4 OR 5 VIEWS COMPARISON: None. FINDINGS: No evidence of fracture or subluxation. Alignment is anatomic, likely with mild positional straightening of the cervical lordosis. No significant spondylotic changes are appreciated. No osseous neural foraminal narrowing is present. No prevertebral soft tissue swelling. Clear lung apices. RAD/Cerv Spine 4 or 5 Views IMPRESSION: No evidence of fracture, subluxation, or significant degenerative changes. Reading Location: [id number]
--- OUTSIDE RECORDS SUMMARY | 2024-12-11 21:52 | XMS RPT_ITS | CCD ---
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 Name Role Phone HILLS, JONNIE Admitting Unavailable HILLS, JONNIE Attending Unavailable [place]ONT[place], JONNIE Primary Care Unavailable [place], JONNIE Admitting Unavailable [place], JONNIE Attending Unavailable [place], JONNIE Primary Care Unavailable [place] PA, Jonnie Primary Care Unavailable Dinorah Mcrae Attending Unavailable [place] PA, Jonnie Referring Unavailable [place] PA, Jonnie Referring Unavailable [place] PA, Jonnie Attending Unavailable [place] PA, Jonnie Primary Care Unavailable [place] PA, Jonnie Primary Care Unavailable Dinorah Mcrae Attending Unavailable Dinorah Mcrae Referring Unavailable [place] PA, Jonnie Attending Unavailable [place] PA, Jonnie Primary Care Unavailable [place] PA, Jonnie Referring Unavailable [place] PA, Jonnie Primary Care Unavailable Assessment, Health Risk Attending Unavaila ble Assessment, Health Risk Referring Unavaila ble [place] PA, Jonnie Primary Care Unavailable [place] PA, Jonnie Attending Unavailable [place] PA, Jonnie Referring Unavailable [place] PA, Jonnie Primary Care Unavailable Friend, Ry Attending Unavailable [place] PA, Jonnie Referring Unavailable [place] PA, Jonnie Primary Care Unavailable Dinorah Mcrae Attending Unavailable [place] PA, Jonnie Primary Care Unavailable Dinorah Mcrae Attending Unavailable Dinorah Mcrae Referring Unavailable [place] PA, Jonnie Primary Care Unavailable Dinorah Mcrae Referring Unavailable Dinorah Mcrae Attending Unavailable [place] PA, Jonnie Referring Unavailable [place] PA, Jonnie Primary Care Unavailable Friend, Ry Consulting Unavailable Friend, Ry Attending Unavailable [place] PA, Jonnie Primary Care Unavailable [place] PA, Jonnie Attending Unavailable [place] PA, Jonnie Referring Unavailable [place] PA, Jonnie Referring Unavailable [place] PA, Jonnie Attending Unavailable [place] PA, Jonnie Primary Care Unavailable Medications Current Medications Medication Drug Class(es) Dates Sig (Normalized) Sig (Original) esomeprazole 40 mg delayed release oral capsule (3 sources) Proton Pump Inhibitor Start: 05-02-2014 take 1 capsule by mouth once daily as needed Esomeprazole Magnesium (Nexium) 40 MG capsule Active 40 MG PO DAILY NEEDED May 02, 2014 12:00am levothyroxine sodium 0.05 mg oral tablet (3 sources) l-Thyroxine Start: 05-02-2014 take 50 ug by mouth once daily Levothyroxine Active 50 MCG PO DAILY May 02, 2014 12:00am Problems Active Problems Problem Classification Problem Date Documented Da te Episodic/Chronic Abdominal pain (1 source) Unspecified abdominal pain; Translations: [Unspecified abdominal pain] Onset: 02-27-2024 Episodic Noninfectious gastroenteritis (1 source) Noninfective gastroenteritis and colitis, unspecified; Translations: [Noninfective gastroenteritis and colitis, unspecified] Onset: 04-13-2024 Episodic Other gastrointestinal disorders (1 source) Diarrhea, unspecified; Translations: [Diarrhea, unspecified] Onset: 02-21-2024 Episodic Other screening for suspected conditions (not mental disorders or infectious disease) (2 sources) Other specified abnormal findings of blood chemistry; Translations: [Encounter for screening mammogram for malignant neoplasm of breast] Onset: 01-20-2024 Episodic Thyroid disorders (3 sources) Hypothyroidism, unspecified; Translations: [Hypothyroidism, unspecified] Onset: 01-11-2024 Chronic Past or Other Problems Problem Classification Problem Date Documented Da te Episodic/Chronic Spondylosis; intervertebral disc disorders; other back problems (1 source) Radiculopathy, site unspecified; Translations: [Radiculopathy, site unspecified] Onset: 01-11-2024 Episodic Results Test Name Value Interpretation Reference Range Facility Colonoscopy Reporton 024 Colonoscopy Report [facility] Medical Records Department [address] [place] [address] Colonoscopy Report MR#: [id number] Acct: [id number] Name: YONY BARNETTLAWRENCE Thomson Rep #: [id number] : 1980 43 From: Ry Tirado DO PCP: Jonnie Nieto PA-C Status:REG [facility] Patient Name: Pastor Baronlois Procedure Date: 03/22/2024 7:00 AM Date of : 1980 Age: 43 Procedure: Colonoscopy Indications: This is the patient's first colonoscopy, Clinically significant diarrhea of unexplained origin Providers: Ry Tirado DO Medicines: Monitored Anesthesia Care Patient Profile: This is a 43 year old female. Refer to note in patient chart for documentation of history and physical. Patient has symptoms of chronic abdominal cramping, chronic epigastric abdominal pain and chronic dyspepsia. Last Colonoscopy: none. The patient's first colonoscopy is today. Complications: No immediate complications. Procedure: Pre-Anesthesia Assessment: - Prior to the procedure, a History and Physical was performed, and patient medications and allergies were reviewed. The patient is competent. The risks and benefits of the procedure and the sedation options and risks were discussed with the patient. All questions were answered and informed consent was obtained. Patient identification and proposed procedure were verified by the physician in the pre-procedure area. Mental Status Examination: alert and oriented. Airway Examination: normal oropharyngeal airway and neck mobility. Respiratory Examination: clear to auscultation. CV Examination: normal. Prophylactic Antibiotics: The patient does not require prophylactic antibiotics. Prior Anticoagulants: The patient has taken no anticoagulant or antiplatelet agents except for NSAID medication. ASA Grade Assessment: II - A patient with mild systemic disease. After reviewing the risks and benefits, the patient was deemed in satisfactory condition to undergo the procedure. The anesthesia plan was to use monitored anesthesia care (MAC). Immediately prior to administration of medications, the patient was re-assessed for adequacy to receive sedatives. The heart rate, respiratory rate, oxygen saturations, blood pressure, adequacy of pulmonary ventilation, and response to care were monitored throughout the procedure. The physical status of the patient was re-assessed after the procedure. After I obtained informed consent, the scope was passed under direct vision. Throughout the procedure, the patient's blood pressure, pulse, and oxygen saturations were monitored continuously. The colonoscope was introduced through the anus and advanced to the terminal ileum. The colonoscopy was performed without difficulty. The patient tolerated the procedure well. The quality of the bowel preparation was adequate. The terminal ileum, ileocecal valve, appendiceal orifice, and rectum were photographed. Scope In: 7:01:03 AM Scope Out: 7:17:16 AM Total Procedure Duration Time 0 hours 16 minutes 13 seconds Findings: The perianal and digital rectal examinations were normal. A segmental area of mildly congested and inflamed mucosa was found in the sigmoid colon, in the transverse colon, in the ascending colon and in the cecum. Biopsies were taken with a cold forceps for histology. Verification of patient identification for the specimen was done. Estimated blood loss was minimal. The terminal ileum appeared normal. Biopsies were taken with a cold forceps for histology. Verification of patient identification for the specimen was done. Estimated blood loss was minimal. Impression: - Congested and inflamed mucosa in the sigmoid colon, in the transverse colon, in the ascending colon and in the cecum. Biopsied. - The examined portion of the ileum was normal. Biopsied. Recommendation: - Discharge patient to home. - Resume previous diet. - Continue present medications. - Await pathology results. - Repeat colonoscopy in 10 years for screening purposes. Procedure Code(s): --- Professional --- 24716, Colonoscopy, flexible; with biopsy, single or multiple CPT copyright 2021 [employer]. All rights reserved. The codes documented in this report are preliminary and upon arbitrator review may be revised to meet current compliance requirements. Ry Tirado DO 03/22/2024 7:34:43 AM This report has been signed electronically. Number of Addenda: 0 Note Initiated On: 03/22/2024 7:00 AM 03/22/24 0734 Date Ry Tirado DO Cosigner Signature: Date (if indicated) CC: JESSICA Nieto; Ry Tirado DO Date Dictated: 03/22/24 0700 Date Transcribed: Sports Clerk: JOAQUIN Signed Normal [facility] EGD Reporton 03-22-2024 EGD Report [facility] Medical Records Department [address] [place] [address] EGD Report MR#: [id number] Acct: [id number] Name: PASTOR BARNETT Rep #: [id number] : 1980 43 From: Ry Tirado DO PCP: Jonnie Nieto PA-C Status:REG [facility] Patient Name: Pastor Barnett Procedure Date: 03/22/2024 6:47 AM Date of : 1980 Age: 43 Procedure: Upper GI endoscopy Indications: Epigastric abdominal pain, Functional Dyspepsia, Heartburn, Suspected esophageal reflux Providers: Ry Tirado DO Medicines: Monitored Anesthesia Care Patient Profile: This is a 43 year old female. Refer to note in patient chart for documentation of history and physical. Patient has symptoms of chronic abdominal cramping, chronic epigastric abdominal pain and chronic dyspepsia. Complications: No immediate complications. Procedure: Pre-Anesthesia Assessment: - Prior to the procedure, a History and Physical was performed, and patient medications and allergies were reviewed. The patient is competent. The risks and benefits of the procedure and the sedation options and risks were discussed with the patient. All questions were answered and informed consent was obtained. Patient identification and proposed procedure were verified by the physician in the pre-procedure area. Mental Status Examination: alert and oriented. Airway Examination: normal oropharyngeal airway and neck mobility. Respiratory Examination: clear to auscultation. CV Examination: normal. Prophylactic Antibiotics: The patient does not require prophylactic antibiotics. Prior Anticoagulants: The patient has taken no anticoagulant or antiplatelet agents except for NSAID medication. ASA Grade Assessment: II - A patient with mild systemic disease. After reviewing the risks and benefits, the patient was deemed in satisfactory condition to undergo the procedure. The anesthesia plan was to use monitored anesthesia care (MAC). Immediately prior to administration of medications, the patient was re-assessed for adequacy to receive sedatives. The heart rate, respiratory rate, oxygen saturations, blood pressure, adequacy of pulmonary ventilation, and response to care were monitored throughout the procedure. The physical status of the patient was re-assessed after the procedure. After obtaining informed consent, the endoscope was passed under direct vision. Throughout the procedure, the patient's blood pressure, pulse, and oxygen saturations were monitored continuously. The colonoscope was introduced through the mouth, and advanced to the second part of duodenum. The upper GI endoscopy was accomplished without difficulty. The patient tolerated the procedure well. Scope In: 6:51:45 AM Scope Out: 7:00:10 AM Total Procedure Duration Time 0 hours 8 minutes 25 seconds Findings: The Z-line was irregular and was found 40 cm from the incisors. Biopsies were taken with a cold forceps for histology. Verification of patient identification for the specimen was done. Estimated blood loss was minimal. Diffuse moderate inflammation characterized by congestion (edema), erosions and erythema was found in the gastric body. Biopsies were taken with a cold forceps for histology. Verification of patient identification for the specimen was done. Estimated blood loss was minimal. Biopsies were taken with a cold forceps for Helicobacter pylori testing. Verification of patient identification for the specimen was done. Estimated blood loss was minimal. Patchy mildly erythematous mucosa without active bleeding and with no stigmata of bleeding was found in the duodenal bulb and in the first portion of the duodenum. Biopsies were taken with a cold forceps for histology. Verification of patient identification for the specimen was done. Estimated blood loss was minimal. Impression: - Z-line irregular, 40 cm from the incisors. Biopsied. - Bile gastritis. Biopsied. - Erythematous duodenopathy. Biopsied. Recommendation: - Discharge patient to home. - Resume previous diet. - Continue present medications. - Await pathology results. Procedure Code(s): --- Professional --- 07989, Esophagogastroduodenoscopy, flexible, transoral; with biopsy, single or multiple CPT copyright 2021 [employer]. All rights reserved. The codes documented in this report are preliminary and upon arbitrator review may be revised to meet current compliance requirements. Ry Tirado DO 03/22/2024 7:29:40 AM This report has been signed electronically. Number of Addenda: 0 Note Initiated On: 03/22/2024 6:47 AM 03/22/24 0730 Date Ry Vick Signature: Date (if indicated) CC: JESSICA Nieto; Ry Dwyer (more content not included)... Normal [facility] H Pylori (initial)on H Pylori (initial) ------- Patient Age/Sex Location Account Attending Physician PASTOR BARNETT 43/F EN [id number] Ry Tirado DO Specimen: [id number] Received: 03/22/24 Status: CHERYL Hopkins Num: [id number] Spec Type: IMMUNO Subm Dr: Ry Tirado, PHYSICIAN INSTITUTION [place] [address] SPECIMEN INFORMATION: Tissue Source: B- Gastric body biopsy Clinical Info: GI symptoms including diarrhea, bloating and nausea Specimen Number: [id number] CPT code: 17233 METHODOLOGY: Deparaffinized sections of prefer/formalin-fixed tissue or PAP/DQ stained slides are incubated with monoclonal/polyclonal antibodies/oligonucleotide probes. Localization is made via biotin free immunoperoxidase method. Appropriate controls are performed and reacted as expected. Results on target cell population are indicated in the following table: RESULTS: ANTIBODY / CLONE RESULT Block B H Pylori (polyclonal) negative These tests were developed and their performance characteristics determined by [facility]. They may not have been cleared or approved by the U.S. Food and Drug Administration. The FDA has determined that such clearance or approval is not necessary. The above immunohistochemical/dualISH markers are ordered and reviewed by the Pathologist. INTERPRETATION: B. Gastric body, biopsy: Negative for Helicobacter pylori organisms. 03/23/2024 Signed (signature on file) Dr. Nirav Lea MD 03/23/24 1232 Normal [facility] Comment on above: Performed By: #### P H.PYLORI #### [facility] [address] [facility] [place], [place], [address] MR/POSTOP.Miguel 03-22-2024 MR/POSTOP.ABEBE [facility] Medical Records Department [address] [place] [address] Anesthesia Postop Eval I 03/22/24 0731 MR#: [id number] Acct: [id number] Name: PASTOR BARNETT Rep #: [id number] : 1980 43 From: Mckay Carlson PCP: Jonnie Nieto PA-C Status:REG SDC Y Race: C Location: [place] [address] Anesthesia: Postop Eval I Current Vital Signs Temperature: 97 F Pulse Rate: 67 Blood Pressure: 89/61 Respiratory Rate: 16 Pulse Ox: 98 Oxygen Delivery Method: Room Air Assessment Airway patent: Yes Spontaneous unlabored respirations: Yes Mental status: Asleep nausea: No Vomiting: No Anesthesia Complication: No Fluid Hydration Crystalloid volume administer (ml): 60 Total IV fluid infused: 60 Progress Note Anesthesia document: Postop Eval 1 completed: Yes 03/22/24730 Date Mckay Joseph Signature: Date CC: Signed Normal [facility] MR/ENUEVEXU9lo 03-22-2024 MR/POSTOPAN2 [facility] Medical Records Department [address] [place] [address] Anesthesia Postop Eval II 03/22/24739 MR#: [id number] Acct: [id number] Name: PASTOR BARNETT Rep #: [id number] : 1980 43 From: Efrain Murrieta MD PCP: Jonnie Nieto PA-C Status:REG [facility] Y Race: C Location: [place] [address] Anesthesia Postop Eval I Sum Postop Eval Completion status Anesthesia document: Postop Eval 1 completed: Yes Anesthesia Postop Eval I Summary Anesthesia Postop Eval I Summary: Anesthesia Postop Eval I: Assessment Summary Airway patent Yes 03/22/24 07:31 [email or web address] Spontaneous unlabored Yes 03/22/24 07:31 [email or web address] respirations Mental status Asleep 03/22/24 07:31 [email or web address] nausea No 03/22/24 07:31 [email or web address] Vomiting No 03/22/24 07:31 [email or web address] Anesthesia Postop Eval I: Fluid Summary Crystalloid volume administer 60 03/22/24 07:31 [email or web address] (ml) Colloids volume administered ( ml) Blood Product volume administered (ml) Total IV fluid infused 60 03/22/24 07:31 [email or web address] Anesthesia Postop Eval I: Summary Notes Anesthesia Complication No 03/22/24 07:31 [email or web address] Anesthesia Complication Comment: Post-operative progress note Anesthesia: Postop Eval II Evaluation Mental status: Awake Pain Level: 0 nausea: No Vomiting: No 03/22/24739 Date Efrain Joseph Signature: Date CC: Signed Normal [facility] ,Urineon 03-22-2024 Beta HCG ( test) Ql (U) Negative Normal [facility] Comment on above: Result Comment: Very dilute urine specimens, as indicated by a low specific gravity, may not contain enrollment representative levels of hCG. If is still suspected, a first morning urine specimen should be collected 48 hours later and tested. Performed By: #### L 400.7600 ####[facility] [id number], [address] Special Stain Group Ion 10-2 Special Stain Group I --------- Patient Age/Sex Location Account Attending Physician PASTOR BARNETT 43/F ANITRA [id number] Ry Tirado DO Specimen: [id number] Received: 03/22/24 Status: CHERYL Hopkins Num: [id number] Spec Type: COLON BX Subm Dr: Ry Tirado DO HEADER OPERATION: Colonoscopy, EGD with biopsy PRE-OP DIAGNOSIS: GI symptoms including diarrhea, bloating, nausea, rectal pain, heartburn, and dysphagia TISSUE SUBMITTED: A - Duodenum biopsy, B- Gastric body biopsy, C- Distal esophagus biopsy, D- Terminal ileum biopsy, E- Random colonic biopsy MICROSCOPIC DIAGNOSIS A. Duodenum, biopsy: Fragments of duodenal mucosa, no pathologic diagnosis. B. Gastric body, biopsy: Mild gastritis. See microscopic description and comment. C. Distal esophagus, biopsy: Fragments of gastroesophageal mucosa with chronic inflammation. Intestinal metaplasia (goblet cell metaplasia) not identified. See comment. D. Terminal ileum, biopsy: A fragment of small intestinal mucosa, no pathologic diagnosis. A fragment of colonic mucosa, no pathologic diagnosis. E. Colon, random biopsy: Fragments of colonic mucosa, no pathologic diagnosis. SJ. 03/23/2024 COMMENT B. The results of immunohistochemistry for Helicobacter pylori will be reported separately ([id number]). C. Alcian blue/PAS stain with matched control is used in the evaluation of the specimen. MICROSCOPIC DESCRIPTION Slides are reviewed. B. The specimen shows fragments of gastric mucosa with chronic inflammatory cell infiltrates in the lamina propria consisting of lymphocytes and plasma cells, consistent with mild chronic gastritis. GROSS DESCRIPTION A. Received in fixative is one container labeled with the patient's name and designated Duodenum biopsy. The specimen consists of multiple irregular fragments of light waddell soft tissue that in aggregate measure 0.8 x 0.8 x 0.1 cm. The specimen is totally submitted in one cassette. B. Received in fixative is one container labeled with the patient's name and designated Patient Age/Sex Location Account Attending Physician PASTOR BARNETT 43/F EN [id number] Ry Tirado DO Gastric body biopsy. The specimen consists of multiple irregular fragments of light waddell soft tissue that in aggregate measure 1.0 x 0.5 x 0.1 cm. The specimen is totally submitted in one cassette. C. Received in fixative is one container labeled with the patient's name and designated Distal esophagus biopsy. The specimen consists of multiple irregular fragments of light waddell soft tissue that in aggregate measure 0.6 x 0.2 x 0.1 cm. The specimen is totally submitted in one cassette. D. Received in fixative is one container labeled with the patient's name and designated Terminal ileum biopsy. The specimen consists of two irregular fragments of light waddell soft tissue that in aggregate measure 1.0 x 0.3 x 0.1 cm. The specimen is totally submitted in one cassette. E. Received in fixative is one container labeled with the patient's name and designated Random colonic biopsy. The specimen consists of multiple irregular fragments of light waddell soft tissue that in aggregate measure 2.0 x 0.5 x 0.1 cm. The specimen is totally submitted in one cassette. 03/22/2024 TC:2 CPT:61369a6,70855 Patient Age/Sex Location Account Attending Physician PASTOR BARNETT 43/F EN [id number] Ry Tirado DO Signed (signature on file) Dr. Nirav Lea MD 03/23/24 1145 Normal [facility] Comment on above: Performed By: #### P SSI ####[facility] [id number] [facility] [place], [address] Thyroid Stim Hormone (TSH)on 03-01-2024 TSH 1.720 uIU/mL Normal 0.358-3.740 [facility] Comment on above: Performed By: #### L 501.9520 ####[facility] [address] [facility] [place], [address] M7400.3302on 02-09-2024 M7400.3302 ___ TESTING PERFORMED AT [facility]. ORIGINAL REPORT ON FILE IN LAB CONTAINS ADDITIONAL TEST SITE INFORMATION. ___ Giardia Lamblia EIA NEGATIVE Normal [facility] Comment on above: Performed By: #### L 7000.0750, M600.5000, M7400.3302 #### [facility] [address] [facility] [place], [place], [address] Ova and Parasites 8623on OP OVA AND PARASITES EX AM, ROUTINE These results were obtained using wet preparation(s) and trichrome stained smear. This test does not include testing for Crytosporidium parvum, Cyclospora, or Microsporidia. O+P Spec Micro One negative specimen does not rule out the possibility of a parasitic infection. ___ TESTING PERFORMED AT [facility]. ORIGINAL REPORT ON FILE IN LAB CONTAINS ADDITIONAL TEST SITE INFORMATION. ___ Ova/Parasite Exam NO OVA, CYSTS, OR PARASITES FOUND. Normal [facility] Comment on above: Performed By: #### L 7000.0750, M600.5000, M7400.3302 #### [facility] [address] [place], [place], [address] Gallbladderon 02-07-[address] [facility] Imaging [facility] [address] [place], [place] [address] Gallbladder MR#: [id number] Acct: [id number] Name: PASTOR BARNETT Rep #: [id number] : 1980 F 43 From: Manohar Dahl DO PCP: Jonnie Nieto PA-C Status: REG CLI Study: Gallbladder Date of Exam: 02/07/24 Exam# [id number] Ordering Dr: Dinorah Mcrae [id number] INDICATION: abdominal pain EXAMINATION: Ultrasound US Abdomen Limited (quadrant) TECHNIQUE: Mendez scale and color doppler imaging was performed of the right upper quadrant. COMPARISON: FINDINGS: LIVER: There is normal echotexture measuring 15.3 cm. No focal hepatic lesion. There is no free fluid. GALLBLADDER AND BILIARY TREE: No shadowing gallstone, pericholecystic fluid or gallbladder wall thickening is demonstrated. The proximal common bile duct measures 5 mm, which is within normal limits for the patient''s age. Songraphic Shay''s sign: Negative. PANCREAS: No focal abnormality is demonstrated in the pancreas. No pancreatic ductal dilatation. RIGHT KIDNEY: 10.4 x 5.7 x 4.2 cm with the cortex is 10 mm. No hydronephrosis. No shadowing calculi. US/Gallbladder IMPRESSION: No acute sonographic abnormality is demonstrated in the right upper quadrant. Electronically Signed: Manohar Dahl DO at 19:10 EDT , CC: JESSICA Nieto; CRISTOFER Galvez Sports Clerk: Signed Normal [facility] Gastric Emptying Studyon Gastric Emptying Study [facility] Imaging Services [address] [place] [address] Gastric Emptying Study MR#: [id number] Acct: [id number] Name: PASTOR BARNETT Rep #: [id number] : 1980 F 43 From: Ravinder Srinivasan PCP: Jonnie Nieto PA-C Status: REG CLI Study: Gastric Emptying Study Date of Exam: 02/07/24 Exam# [id number] Ordering Dr: Dinorah Mcrae [id number] CLINICAL: 43-year-old female with history of chronic nausea. SEMI-SOLID PHASE 99m Tc SULFUR COLLOID GASTRIC EMPTYING STUDY COMPARISON: Gallbladder ultrasound report 02/07/2024 FINDINGS: The patient was administered 1.1 mCi of 99m Tc sulfur colloid mixed with oatmeal and consumed per os. Image acquisitions in the anterior-posterior projections were obtained for 60 minutes. There is prompt visualization of the stomach. There is no gastroesophageal reflux identified. The T ? raw data emptying was calculated to be 35.86 minutes, (Normal: 12-56 minutes). NM/Gastric Emptying Study IMPRESSION: 1. NORMAL 99m Tc sulfur colloid semi-solid phase (oatmeal) gastric emptying imaging examination. A. There is normal and preserved semi-solid phase gastric emptying compared to normal controls. (Collin, J Nucl Med Tech 38: 186, 2010). Electronically Signed: Ravinder Fuller DO at 10:41 EDT , CC: JESSICA Nieto; CRISTOFER Galvez Sports Clerk: Signed Normal [facility] L7000.0750on 02-04-2024 P ELASTASE,FECA > 800 Normal >200 [facility] Comment on above: Result Comment: Resu lt Units: ug Elast./g Severe Pancreatic Insufficiency: <100 Moderate Pancreatic Insufficiency: 100 - 200 Normal: >200 Performed at: [address] [id number] Crew Scheduler: Madonna Cardoza MD, Phone: [phone] Performed By: #### L 7000.0750, M600.5000, M7400.3302 #### [facility] Laboratory [address] [place], [address] Calprotectin, Stoolon [address] 39 ug/g Normal 0-120 [facility] Comment on above: Order Comment: Test( s) 837261-Cnzh, Neutral; 342353-Wtbr, Totalwas developed and its performance characteristicsdetermined by [facility]. It has not been cleared or approvedby the Food and Drug Administration. Result Comment: Conc entration Interpretation Follow-Up < 5 - 50 ug/g Normal None >50 -120 ug/g Borderline Re-evaluate in 4-6 weeks >120 ug/g Abnormal Repeat as clinically indicated Performed at: [address] [id number] Crew Scheduler: Roberto Nelson PhD, Phone: [phone] Performed at: [address] [id number] Crew Scheduler: Madonna Cardoza MD, Phone: [phone] Performed By: #### L 7000.0700, M100.0605, M100.637, L7000.0300 ####[facility] [address] [place], [address] Fecal Fat, Qualitativeon FATS, NEUTRAL Normal Normal . [facility] Comment on above: Order Comment: Test( s) 241948-Xtey, Neutral; 799238-Mgad, Totalwas developed and its performance characteristicsdetermined by [employer]. It has not been cleared or approvedby the Food and Drug Administration. Result Comment: Norm al (<60 Droplets/HPF) Performed By: #### L 7000.0700, M100.0605, M100.637, L7000.0300 ####[facility] [address] [place], [place], [id number] FATS, TOTAL Normal Normal . [facility] Comment on above: Order Comment: Test( s) 966094-Uvqy, Neutral; 267908-Xmdy, Totalwas developed and its performance characteristicsdetermined by [employer]. It has not been cleared or approvedby the Food and Drug Administration. Result Comment: Norm al (<100 Droplets/HPF) Performed By: #### L 7000.0700, M100.0605, M100.637, L7000.0300 ####[facility] [address] [place], [address] HIRO Comprehensive Panelon HIRO TABLE Comment Normal . [facility] Comment on above: Result Comment: Auto antibody Disease Association Condition Frequency --------- Antinuclear Antibody, SLE, mixed connective Direct (HIRO-D) tissue diseases --------- dsDNA SLE 40 - 60% --------- Chromatin Drug induced SLE 90% SLE 48 - 97% --------- SSA (Ro) SLE 25 - 35% Sjogren's Syndrome 40 - 70% Lupus 100% --------- SSB (La) SLE 10% Sjogren's Syndrome 30% --------- Sm (anti-Coker) SLE 15 - 30% --------- FLORAL ASSOCIATE Mixed Connective Tissue Disease 95% (U1 nRNP, SLE 30 - 50% anti-ribonucleoprotein) Polymyositis and/or Dermatomyositis 20% --------- Scl-70 (antiDNA Scleroderma (diffuse) 20 - 35% topoisomerase) Crest 13% --------- Kasia-1 Polymyositis and/or Dermatomyositis 20 - 40% --------- Centromere B Scleroderma - Crest variant 80% Performed By: #### L 3100.5440, L800.1280, L5500.0550, L803.2200, L2100.0000, L101.9900, L3300.1200, L3100.6900, L3410.2400, L500.4050, L3100.3425, L100.0100, L501.6710, L3200.1100 ####[facility] [address] [facility] [place], [place], [id number] ANTI-CENT B AB <0.2 Normal 0.0-0.9 [facility] Comment on above: Performed By: #### L 3100.5440, L800.1280, L5500.0550, L803.2200, L2100.0000, L101.9900, L3300.1200, L3100.6900, L3410.2400, L500.4050, L3100.3425, L100.0100, L501.6710, L3200.1100 ####[facility] [address] [place], [place], [phone] ANTI-DNA (DS)AB <1 Normal 0-9 [facility] Comment on above: Result Comment: Nega tive <5 Equivocal 5 - 9 Positive >9 Performed By: #### L 3100.5440, L800.1280, L5500.0550, L803.2200, L2100.0000, L101.9900, L3300.1200, L3100.6900, L3410.2400, L500.4050, L3100.3425, L100.0100, L501.6710, L3200.1100 ####[facility] [address] [place], [address] ANTI-KASIA-1 <0.2 Normal 0.0-0.9 [facility] Comment on above: Performed By: #### L 3100.5440, L800.1280, L5500.0550, L803.2200, L2100.0000, L101.9900, L3300.1200, L3100.6900, L3410.2400, L500.4050, L3100.3425, L100.0100, L501.6710, L3200.1100 ####[facility] [address] [place], [address] ANTI-SS-A < 0.2 Normal 0.0-0.9 [facility] Comment on above: Performed By: #### L 3100.5440, L800.1280, L5500.0550, L803.2200, L2100.0000, L101.9900, L3300.1200, L3100.6900, L3410.2400, L500.4050, L3100.3425, L100.0100, L501.6710, L3200.1100 ####[facility] [address] [place], [address] ANTI-SS-B < 0.2 Normal 0.0-0.9 [facility] Comment on above: Performed By: #### L 3100.5440, L800.1280, L5500.0550, L803.2200, L2100.0000, L101.9900, L3300.1200, L3100.6900, L3410.2400, L500.4050, L3100.3425, L100.0100, L501.6710, L3200.1100 ####[facility] [address] [place], [address] ANTICHROMATIN <0.2 Normal 0.0-0.9 [facility] Comment on above: Performed By: #### L 3100.5440, L800.1280, L5500.0550, L803.2200, L2100.0000, L101.9900, L3300.1200, L3100.6900, L3410.2400, L500.4050, L3100.3425, L100.0100, L501.6710, L3200.1100 ####[facility] [address] [place], [place], [id number] ANTISCLERODERM <0.2 Normal 0.0-0.9 [facility] Comment on above: Performed By: #### L 3100.5440, L800.1280, L5500.0550, L803.2200, L2100.0000, L101.9900, L3300.1200, L3100.6900, L3410.2400, L500.4050, L3100.3425, L100.0100, L501.6710, L3200.1100 ####[facility] [address] [place], [place], [address] FLORAL ASSOCIATE Ab <0.2 Normal 0.0-0.9 [facility] Comment on above: Performed By: #### L 3100.5440, L800.1280, L5500.0550, L803.2200, L2100.0000, L101.9900, L3300.1200, L3100.6900, L3410.2400, L500.4050, L3100.3425, L100.0100, L501.6710, L3200.1100 ####[facility] [address] [place], [place], [phone] COKER Ab <0.2 Normal 0.0-0.9 [facility] Comment on above: Performed By: #### L 3100.5440, L800.1280, L5500.0550, L803.2200, L2100.0000, L101.9900, L3300.1200, L3100.6900, L3410.2400, L500.4050, L3100.3425, L100.0100, L501.6710, L3200.1100 ####[facility] [address] [place], [place], [phone] ANCAon 02-01-2024 Atypical pANCA <1:20 Normal Neg:<1:20 [facility] Comment on above: Order Comment: NUNK Result Comment: The atypical pANCA pattern has been observed in a significant percentage of patients with ulcerative colitis, primary sclerosing cholangitis and autoimmune hepatitis. Performed By: #### P H.PYLORI #### [facility] Laboratory [address] [place], [place], [address] Cytoplasmic Ab <1:20 Normal Neg:<1:20 [facility] Comment on above: Order Comment: NUNK Performed By: #### P H.PYLORI #### [facility] [address] [place], [place], [address] Perinuclear Ab. <1:20 Normal Neg:<1:20 [facility] Comment on above: Order Comment: NUNK Result Comment: The presence of positive fluorescence exhibiting P-ANCA or C-ANCA patterns alone is not specific for the diagnosis of Billy's Granulomatosis (WG) or microscopic polyangiitis. Decisions about treatment should not be based solely on ANCA IFA results. The [employer] ANCA [employer] Consensus recommends follow up testing of positive sera with both GA- 3 and MPO-ANCA enzyme immunoassays. As many as 5% serum samples are positive only by EIA. Ref. AM J Clin Pathol 1999;111:507-513. Performed By: #### P H.PYLORI #### [facility] [address] [place], [place], [address] Angiotensin Convert Enzymeon 02-01-2024 ANGIOT-CONV.ENZ 67 U/L Normal 14-82 [facility] Comment on above: Order Comment: NUNK Result Comment: Perf ormed at: [facility] [address] [id number] Crew Scheduler: Roberto Nelson PhD, Phone: [phone] Performed at: [facility] [address] [id number] Crew Scheduler: Madonna Cardoza MD, Phone: [phone] Performed By: #### P H.PYLORI #### [facility] [address] [place], [address] Anti-Mitochondrial ABon 09- ANTIMITOCHON AB 24.6 Units Abnormal 0.0-20.0 [facility] Comment on above: Result Comment: Nega tive 0.0 - 20.0 Equivocal 20.1 - 24.9 Positive >24.9 Mitochondrial (M2) Antibodies are found in 90-96% of patients with primary biliary cirrhosis. Performed By: #### L 3100.5440, L800.1280, L5500.0550, L803.2200, L2100.0000, L101.9900, L3300.1200, L3100.6900, L3410.2400, L500.4050, L3100.3425, L100.0100, L501.6710, L3200.1100 ####[facility] [address] [place], [address] Anti-Smooth Muscle ABSon ANTISMOOTH MUSC 3 Units Normal 0-19 [facility] Comment on above: Order Comment: NUNK Result Comment: Nega tive 0 - 19 Weak positive 20 - 30 Moderate to strong positive >30 Actin Antibodies are found in 52-85% of patients with autoimmune hepatitis or chronic active hepatitis and in 22% of patients with primary biliary cirrhosis. Performed By: #### L 3100.5440, L800.1280, L5500.0550, L803.2200, L2100.0000, L101.9900, L3300.1200, L3100.6900, L3410.2400, L500.4050, L3100.3425, L100.0100, L501.6710, L3200.1100 ####[facility] [address] [place], [address] Celiac Disease Profileon ENDOMYSIAL IGA Negative Normal Negative [facility] Comment on above: Order Comment: NUNK Performed By: #### P H.PYLORI #### [facility] [address] [place], [place], [phone] tTG IGA <2 Normal 0-3 [facility] Comment on above: Order Comment: NUNK Result Comment: Nega tive 0 - 3 Weak Positive 4 - 10 Positive >10 Tissue Transglutaminase (tTG) has been identified as the endomysial antigen. Studies have demonstr- ated that endomysial IgA antibodies have over 99% specificity for gluten sensitive enteropathy. Performed By: #### P H.PYLORI #### [facility] [address] [place], [place], [phone] MIYA + Protein Elect, Serumon 02-01-2024 Albumin [Mass/Vol] 3.5 g/dL Normal 2.9-4.[address] [facility] Comment on above: Order Comment: NUNK Performed By: #### L 3100.5440, L800.1280, L5500.0550, L803.2200, L2100.0000, L101.9900, L3300.1200, L3100.6900, L3410.2400, L500.4050, L3100.3425, L100.0100, L501.6710, L3200.1100 ####[facility] [address] [place], [place], [address] Albumin/Globulin [Mass ratio] 1.3 {ratio} Normal 0.7-1.7 [facility] Comment on above: Order Comment: NUNK Performed By: #### L 3100.5440, L800.1280, L5500.0550, L803.2200, L2100.0000, L101.9900, L3300.1200, L3100.6900, L3410.2400, L500.4050, L3100.3425, L100.0100, L501.6710, L3200.1100 ####[facility] [address] [place], [address] POUWH-7-AIRW 0.2 g/dL Normal 0.0-0.4 [facility] Comment on above: Order Comment: NUNK Performed By: #### L 3100.5440, L800.1280, L5500.0550, L803.2200, L2100.0000, L101.9900, L3300.1200, L3100.6900, L3410.2400, L500.4050, L3100.3425, L100.0100, L501.6710, L3200.1100 ####[facility] [address] [place], [place], [phone]) FWCSG-9-KTTN 0.7 g/dL Normal 0.4-1.0 [facility] Comment on above: Order Comment: NUNK Performed By: #### L 3100.5440, L800.1280, L5500.0550, L803.2200, L2100.0000, L101.9900, L3300.1200, L3100.6900, L3410.2400, L500.4050, L3100.3425, L100.0100, L501.6710, L3200.1100 ####[facility] [address] [place], [address]) BETA GLOBULIN 0.9 g/dL Normal 0.7-1.3 [facility] Comment on above: Order Comment: NUNK Performed By: #### L 3100.5440, L800.1280, L5500.0550, L803.2200, L2100.0000, L101.9900, L3300.1200, L3100.6900, L3410.2400, L500.4050, L3100.3425, L100.0100, L501.6710, L3200.1100 ####[facility] [address] [place], [place], [phone] GAMMA GLOBULIN 1.0 g/dL Normal 0.4-1.8 [facility] Comment on above: Order Comment: NUNK Performed By: #### L 3100.5440, L800.1280, L5500.0550, L803.2200, L2100.0000, L101.9900, L3300.1200, L3100.6900, L3410.2400, L500.4050, L3100.3425, L100.0100, L501.6710, L3200.1100 ####[facility] [address] [place], [address] Globulin (S) [Mass/Vol] 2.8 g/dL Normal 2.2-3.9 [facility] Comment on above: Order Comment: NUNK Performed By: #### L 3100.5440, L800.1280, L5500.0550, L803.2200, L2100.0000, L101.9900, L3300.1200, L3100.6900, L3410.2400, L500.4050, L3100.3425, L100.0100, L501.6710, L3200.1100 ####[facility] [address] [place], [address] MIYA RESULT,S Comment Normal . [facility] Comment on above: Order Comment: NUNK Result Comment: No m onoclonality detected. Performed By: #### L 3100.5440, L800.1280, L5500.0550, L803.2200, L2100.0000, L101.9900, L3300.1200, L3100.6900, L3410.2400, L500.4050, L3100.3425, L100.0100, L501.6710, L3200.1100 ####[facility] [address] [place], [place], [phone] IMMUNOGLOB A QN 137 mg/dL Normal 87-352 [facility] Comment on above: Order Comment: NUNK Performed By: #### L 3100.5440, L800.1280, L5500.0550, L803.2200, L2100.0000, L101.9900, L3300.1200, L3100.6900, L3410.2400, L500.4050, L3100.3425, L100.0100, L501.6710, L3200.1100 ####[facility] [address] [place], [address] IMMUNOGLOB G QN 853 mg/dL Normal 586-1602 [facility] Comment on above: Order Comment: NUNK Performed By: #### L 3100.5440, L800.1280, L5500.0550, L803.2200, L2100.0000, L101.9900, L3300.1200, L3100.6900, L3410.2400, L500.4050, L3100.3425, L100.0100, L501.6710, L3200.1100 ####[facility] [address] [place], [address] IMMUNOGLOB M QN 183 mg/dL Normal 26-217 [facility] Comment on above: Order Comment: NUNK Performed By: #### L 3100.5440, L800.1280, L5500.0550, L803.2200, L2100.0000, L101.9900, L3300.1200, L3100.6900, L3410.2400, L500.4050, L3100.3425, L100.0100, L501.6710, L3200.1100 ####[facility] [address] [place], [address] M-Mike Not Observed Normal Not Observed [facility] Comment on above: Order Comment: NUNK Performed By: #### L 3100.5440, L800.1280, L5500.0550, L803.2200, L2100.0000, L101.9900, L3300.1200, L3100.6900, L3410.2400, L500.4050, L3100.3425, L100.0100, L501.6710, L3200.1100 ####[facility] [address] [place], [place], [address] NOTE: Comment Normal . [facility] Comment on above: Order Comment: NUNK Result Comment: Prot ein electrophoresis scan will follow via computer, mail, or assistant hall director delivery. Performed By: #### L 3100.5440, L800.1280, L5500.0550, L803.2200, L2100.0000, L101.9900, L3300.1200, L3100.6900, L3410.2400, L500.4050, L3100.3425, L100.0100, L501.6710, L3200.1100 ####[facility] [address] [place], [place], [phone] Protein [Mass/Vol] 6.3 g/dL Normal 6.0-8.[address] [facility] Comment on above: Order Comment: NUNK Performed By: #### L 3100.5440, L800.1280, L5500.0550, L803.2200, L2100.0000, L101.9900, L3300.1200, L3100.6900, L3410.2400, L500.4050, L3100.3425, L100.0100, L501.6710, L3200.1100 ####[facility] [address] [place], [place], [phone] Immunoglobulins G/A/M/Anthony IMMUNOGLOB E QN 32 IU/mL Normal 6-495 [facility] Comment on above: Order Comment: NUNK Performed By: #### P H.PYLORI #### [facility] [address] [place], [place], [address] L2100.0000on 02-01-2024 ACCA 18 units Normal 0-90 [facility] Comment on above: Order Comment: NUNK Result Comment: Nega tive: <80 Equivocal: 80-90 Positive: >90 Performed By: #### L 3100.5440, L800.1280, L5500.0550, L803.2200, L2100.0000, L101.9900, L3300.1200, L3100.6900, L3410.2400, L500.4050, L3100.3425, L100.0100, L501.6710, L3200.1100 ####[facility] [address] [place], [place], [phone] ALCA 1 units Normal 0-60 [facility] Comment on above: Order Comment: NUNK Result Comment: Nega tive:<55 Equivocal: 55-60 Positive: >60 Performed By: #### L 3100.5440, L800.1280, L5500.0550, L803.2200, L2100.0000, L101.9900, L3300.1200, L3100.6900, L3410.2400, L500.4050, L3100.3425, L100.0100, L501.6710, L3200.1100 ####[facility] [address] [place], [address] AMCA 47 units Normal 0-100 [facility] Comment on above: Order Comment: NUNK Result Comment: Nega tive: <90 Equivocal: 90-100 Positive: >100 This test was developed and its performance characteristics determined by [employer]. It has not been cleared or approved by the Food and Drug Administration. The FDA has determined that such clearance or approval is not necessary. Performed By: #### L 3100.5440, L800.1280, L5500.0550, L803.2200, L2100.0000, L101.9900, L3300.1200, L3100.6900, L3410.2400, L500.4050, L3100.3425, L100.0100, L501.6710, L3200.1100 ####[facility] [address] [place], [address] Atypical pANCA Negative Normal Negative [facility] Comment on above: Order Comment: NUNK Performed By: #### L 3100.5440, L800.1280, L5500.0550, L803.2200, L2100.0000, L101.9900, L3300.1200, L3100.6900, L3410.2400, L500.4050, L3100.3425, L100.0100, L501.6710, L3200.1100 ####[facility] [address] [place], [place], [phone] COMMENT Comment Normal . [facility] Comment on above: Order Comment: NUNK Result Comment: Majo muna is not suggestive of Inflammatory Bowel Disease Performed By: #### L 3100.5440, L800.1280, L5500.0550, L803.2200, L2100.0000, L101.9900, L3300.1200, L3100.6900, L3410.2400, L500.4050, L3100.3425, L100.0100, L501.6710, L3200.1100 ####[facility] [address] [place], [address] Tanya 3 units Normal 0-50 [facility] Comment on above: Order Comment: NUNK Result Comment: Nega tive: <45 Equivocal: 45-50 Positive: >50 Performed By: #### L 3100.5440, L800.1280, L5500.0550, L803.2200, L2100.0000, L101.9900, L3300.1200, L3100.6900, L3410.2400, L500.4050, L3100.3425, L100.0100, L501.6710, L3200.1100 ####[facility] [address] [place], [place], [address] L5500.0550on 02-01-2024 BEEF <0.10 Normal Class 0 [facility] Comment on above: Performed By: #### L 3100.5440, L800.1280, L5500.0550, L803.2200, L2100.0000, L101.9900, L3300.1200, L3100.6900, L3410.2400, L500.4050, L3100.3425, L100.0100, L501.6710, L3200.1100 ####[facility] [address] [place], [place], [phone] CHOCOLATE <0.10 Normal Class 0 [facility] Comment on above: Performed By: #### L 3100.5440, L800.1280, L5500.0550, L803.2200, L2100.0000, L101.9900, L3300.1200, L3100.6900, L3410.2400, L500.4050, L3100.3425, L100.0100, L501.6710, L3200.1100 ####[facility] [address] [place], [place], [address] CODFISH <0.10 Normal Class 0 [facility] Comment on above: Performed By: #### L 3100.5440, L800.1280, L5500.0550, L803.2200, L2100.0000, L101.9900, L3300.1200, L3100.6900, L3410.2400, L500.4050, L3100.3425, L100.0100, L501.6710, L3200.1100 ####[facility] [address] [place], [place], [phone] COMMENT Comment Normal . [facility] Comment on above: Result Comment: Sunshine lang of Specific IgE Class Description of Class ----- < 0.10 0 Negative 0.10 - 0.31 0/I Equivocal/Low 0.32 - 0.55 I Low 0.56 - 1.40 II Moderate 1.41 - 3.90 III High 3.91 - 19.00 IV Very High 19.01 - 100.00 V Very High >100.00 Very High Performed By: #### L 3100.5440, L800.1280, L5500.0550, L803.2200, L2100.0000, L101.9900, L3300.1200, L3100.6900, L3410.2400, L500.4050, L3100.3425, L100.0100, L501.6710, L3200.1100 ####[facility] [address] [place], [place], [id number] CORN <0.10 Normal Class 0 [facility] Comment on above: Performed By: #### L 3100.5440, L800.1280, L5500.0550, L803.2200, L2100.0000, L101.9900, L3300.1200, L3100.6900, L3410.2400, L500.4050, L3100.3425, L100.0100, L501.6710, L3200.1100 ####[facility] [id number] [place], [address] EGG, WHOLE <0.10 Normal Class 0 [facility] Comment on above: Result Comment: Perf ormed at: [facility] [address] [id number] Crew Scheduler: Roberto Nelson PhD, Phone: [phone] Performed at: [facility] [facility] [address] [id number] Crew Scheduler: Madonna Cardoza MD, Phone: [phone] Performed By: #### L 3100.5440, L800.1280, L5500.0550, L803.2200, L2100.0000, L101.9900, L3300.1200, L3100.6900, L3410.2400, L500.4050, L3100.3425, L100.0100, L501.6710, L3200.1100 ####[facility] [address] [place], [address] MILK (COW) <0.10 Normal Class 0 [facility] Comment on above: Performed By: #### L 3100.5440, L800.1280, L5500.0550, L803.2200, L2100.0000, L101.9900, L3300.1200, L3100.6900, L3410.2400, L500.4050, L3100.3425, L100.0100, L501.6710, L3200.1100 ####[facility] [address] [place], [place], [phone] MUSSELS <0.10 Normal Class 0 [facility] Comment on above: Performed By: #### L 3100.5440, L800.1280, L5500.0550, L803.2200, L2100.0000, L101.9900, L3300.1200, L3100.6900, L3410.2400, L500.4050, L3100.3425, L100.0100, L501.6710, L3200.1100 ####[facility] [address] [place], [address] PEANUT <0.10 Normal Class 0 [facility] Comment on above: Performed By: #### L 3100.5440, L800.1280, L5500.0550, L803.2200, L2100.0000, L101.9900, L3300.1200, L3100.6900, L3410.2400, L500.4050, L3100.3425, L100.0100, L501.6710, L3200.1100 ####[facility] [address] [place], [place], [phone] PORK <0.10 Normal Class 0 [facility] Comment on above: Performed By: #### L 3100.5440, L800.1280, L5500.0550, L803.2200, L2100.0000, L101.9900, L3300.1200, L3100.6900, L3410.2400, L500.4050, L3100.3425, L100.0100, L501.6710, L3200.1100 ####[facility] [address] [place], [address] SALMON <0.10 Normal Class 0 [facility] Comment on above: Performed By: #### L 3100.5440, L800.1280, L5500.0550, L803.2200, L2100.0000, L101.9900, L3300.1200, L3100.6900, L3410.2400, L500.4050, L3100.3425, L100.0100, L501.6710, L3200.1100 ####[facility] [address] [place], [place], [phone] SHRIMP <0.10 Normal Class 0 [facility] Comment on above: Performed By: #### L 3100.5440, L800.1280, L5500.0550, L803.2200, L2100.0000, L101.9900, L3300.1200, L3100.6900, L3410.2400, L500.4050, L3100.3425, L100.0100, L501.6710, L3200.1100 ####[facility] [address] [place], [place], [phone] SOYBEAN <0.10 Normal Class 0 [facility] Comment on above: Performed By: #### L 3100.5440, L800.1280, L5500.0550, L803.2200, L2100.0000, L101.9900, L3300.1200, L3100.6900, L3410.2400, L500.4050, L3100.3425, L100.0100, L501.6710, L3200.1100 ####[facility] [address] [place], [address] TUNA <0.10 Normal Class 0 [facility] Comment on above: Performed By: #### L 3100.5440, L800.1280, L5500.0550, L803.2200, L2100.0000, L101.9900, L3300.1200, L3100.6900, L3410.2400, L500.4050, L3100.3425, L100.0100, L501.6710, L3200.1100 ####[facility] [address] [place], [address] WHEAT <0.10 Normal Class 0 [facility] Comment on above: Performed By: #### L 3100.5440, L800.1280, L5500.0550, L803.2200, L2100.0000, L101.9900, L3300.1200, L3100.6900, L3410.2400, L500.4050, L3100.3425, L100.0100, L501.6710, L3200.1100 ####[facility] [address] [facility] [place], [address] ENTERIC PATHOGEN PANEL STOOL on 01-26-2024 EP PANEL Normal Reference Ran ge = Not Detected GI pathogens Pnl Stl AYAN+probe Not detected for Campylobacter group, Salmonella species, Shigella species, Vibrio Group, Yersinia enterocolitica, EHEC (Shiga Toxin 1, Shiga Toxin 2), Norovirus Gl/Gll, and Rotavirus A. Other common stool pathogens are not detected on this panel include: Aeromonas/Plesiomonas or parasites. Order testing for these organisms separately if suspected. This is an amplified DNA test which makes it both specific and sensitive. CAMPYLOBACTER Not Detected Norovirus Not Detected Rotavirus Not Detected Salmonella Not Detected Shiga Toxin Not Detected Shigella sp. Not Detected VIBRIO Not Detected Yersinia Not Detected Normal [facility] Comment on above: Performed By: #### L 7000.0700, M100.0605, M100.637, L7000.0300 ####[facility] [address] [place], [address] Stool Lactoferrin/WBCon 12-29 WBCST Normal Reference Ran ge = Negative Fecal WBC Lactoferrin Negative: No Fecal WBC Lactoferrin present Normal [facility] Comment on above: Performed By: #### L 7000.0700, M100.0605, M100.637, L7000.0300 ####[facility] [address] [place], [address] CBC W/Diff, Automatedon 08-2 Absolute Lymph 2.10 X10 3/uL Normal 0.83-4.51 [facility] Comment on above: Performed By: #### L 3100.5440, L800.1280, L5500.0550, L803.2200, L2100.0000, L101.9900, L3300.1200, L3100.6900, L3410.2400, L500.4050, L3100.3425, L100.0100, L501.6710, L3200.1100 ####[facility] [address] [place], [address] Absolute Neut 3.5 X10 3/uL Normal 2.0-7.7 [facility] Comment on above: Performed By: #### L 3100.5440, L800.1280, L5500.0550, L803.2200, L2100.0000, L101.9900, L3300.1200, L3100.6900, L3410.2400, L500.4050, L3100.3425, L100.0100, L501.6710, L3200.1100 ####[facility] [address] [place], [address] Basophils/100 WBC (Bld) 0.3 % Normal 0-1 [facility] Comment on above: Performed By: #### L 3100.5440, L800.1280, L5500.0550, L803.2200, L2100.0000, L101.9900, L3300.1200, L3100.6900, L3410.2400, L500.4050, L3100.3425, L100.0100, L501.6710, L3200.1100 ####[facility] [address] [place], [address] Eosinophils/100 WBC (Bld) 1.5 % Normal 0-5 [facility] Comment on above: Performed By: #### L 3100.5440, L800.1280, L5500.0550, L803.2200, L2100.0000, L101.9900, L3300.1200, L3100.6900, L3410.2400, L500.4050, L3100.3425, L100.0100, L501.6710, L3200.1100 ####[facility] [address] [place], [place], [phone] Erythrocyte distribution width (RBC) [Ratio] 12.0 % Normal 11.6-14.6 [facility] Comment on above: Performed By: #### L 3100.5440, L800.1280, L5500.0550, L803.2200, L2100.0000, L101.9900, L3300.1200, L3100.6900, L3410.2400, L500.4050, L3100.3425, L100.0100, L501.6710, L3200.1100 ####[facility] [address] [facility] [place], [address] Hematocrit (Bld) [Volume fraction] 39.0 % Normal 37-47 [facility] Comment on above: Performed By: #### L 3100.5440, L800.1280, L5500.0550, L803.2200, L2100.0000, L101.9900, L3300.1200, L3100.6900, L3410.2400, L500.4050, L3100.3425, L100.0100, L501.6710, L3200.1100 ####[facility] [address] [facility] [place], [address] Hemoglobin (Bld) [Mass/Vol] 13.0 g/dL Normal 12.0-15.0 [facility] Comment on above: Performed By: #### L 3100.5440, L800.1280, L5500.0550, L803.2200, L2100.0000, L101.9900, L3300.1200, L3100.6900, L3410.2400, L500.4050, L3100.3425, L100.0100, L501.6710, L3200.1100 ####[facility] [address] [place], [address] IG% 0.300 Normal 0.0-0.9 [facility] Comment on above: Result Comment: IG% - Immature Granulocytes (promyelocytes, myelocytes and metamyelocytes) > 1% indicates that a LEFT SHIFT is Present. Performed By: #### L 3100.5440, L800.1280, L5500.0550, L803.2200, L2100.0000, L101.9900, L3300.1200, L3100.6900, L3410.2400, L500.4050, L3100.3425, L100.0100, L501.6710, L3200.1100 ####[facility] [address] [place], [address] Lymphocytes/100 WBC (Bld) 34.3 % Normal 19-41 [facility] Comment on above: Performed By: #### L 3100.5440, L800.1280, L5500.0550, L803.2200, L2100.0000, L101.9900, L3300.1200, L3100.6900, L3410.2400, L500.4050, L3100.3425, L100.0100, L501.6710, L3200.1100 ####[facility] [address] [place], [place], [phone] MCH (RBC) [Entitic mass] 30.2 pg Normal 27.0-32.0 [facility] Comment on above: Performed By: #### L 3100.5440, L800.1280, L5500.0550, L803.2200, L2100.0000, L101.9900, L3300.1200, L3100.6900, L3410.2400, L500.4050, L3100.3425, L100.0100, L501.6710, L3200.1100 ####[facility] [address] [place], [address] MCHC (RBC) [Mass/Vol] 33.3 g/dL Normal 32-36 [facility] Comment on above: Performed By: #### L 3100.5440, L800.1280, L5500.0550, L803.2200, L2100.0000, L101.9900, L3300.1200, L3100.6900, L3410.2400, L500.4050, L3100.3425, L100.0100, L501.6710, L3200.1100 ####[facility] [address] [place], [address] MCV (RBC) [Entitic vol] 90.5 fL Normal 81-99 [facility] Comment on above: Performed By: #### L 3100.5440, L800.1280, L5500.0550, L803.2200, L2100.0000, L101.9900, L3300.1200, L3100.6900, L3410.2400, L500.4050, L3100.3425, L100.0100, L501.6710, L3200.1100 ####[facility] [address] [place], [address] Monocytes/100 WBC (Bld) 6.7 % Normal 0-10 [facility] Comment on above: Performed By: #### L 3100.5440, L800.1280, L5500.0550, L803.2200, L2100.0000, L101.9900, L3300.1200, L3100.6900, L3410.2400, L500.4050, L3100.3425, L100.0100, L501.6710, L3200.1100 ####[facility] [address] [place], [address] Neutrophils/100 WBC (Bld) 56.9 % Normal 47-70 [facility] Comment on above: Performed By: #### L 3100.5440, L800.1280, L5500.0550, L803.2200, L2100.0000, L101.9900, L3300.1200, L3100.6900, L3410.2400, L500.4050, L3100.3425, L100.0100, L501.6710, L3200.1100 ####[facility] [address] [place], [place], [phone]) Nucleated RBC (Bld) [#/Vol] 0 10*3/uL Normal 0-5 [facility] Comment on above: Performed By: #### L 3100.5440, L800.1280, L5500.0550, L803.2200, L2100.0000, L101.9900, L3300.1200, L3100.6900, L3410.2400, L500.4050, L3100.3425, L100.0100, L501.6710, L3200.1100 ####[facility] [address] [facility] [place], [place], [phone] Platelet mean volume (Bld) [Entitic vol] 9.4 fL Normal 6.2-12.0 [facility] Comment on above: Performed By: #### L 3100.5440, L800.1280, L5500.0550, L803.2200, L2100.0000, L101.9900, L3300.1200, L3100.6900, L3410.2400, L500.4050, L3100.3425, L100.0100, L501.6710, L3200.1100 ####[facility] [address] [place], [place], [phone]) Platelets (Bld) [#/Vol] 320 10*3/uL Normal 150-450 [facility] Comment on above: Performed By: #### L 3100.5440, L800.1280, L5500.0550, L803.2200, L2100.0000, L101.9900, L3300.1200, L3100.6900, L3410.2400, L500.4050, L3100.3425, L100.0100, L501.6710, L3200.1100 ####[facility] [address] [place], [place], [phone] RBC (Bld) [#/Vol] 4.31 10*6/uL Normal 4.2-5.4 [facility] Comment on above: Performed By: #### L 3100.5440, L800.1280, L5500.0550, L803.2200, L2100.0000, L101.9900, L3300.1200, L3100.6900, L3410.2400, L500.4050, L3100.3425, L100.0100, L501.6710, L3200.1100 ####[facility] [address] [place], [place], [phone]) RDW SD 40.0 fl Normal 35.1-43.9 [facility] Comment on above: Performed By: #### L 3100.5440, L800.1280, L5500.0550, L803.2200, L2100.0000, L101.9900, L3300.1200, L3100.6900, L3410.2400, L500.4050, L3100.3425, L100.0100, L501.6710, L3200.1100 ####[facility] [address] [place], [place], [phone] WBC (Bld) [#/Vol] 6.1 10*3/uL Normal 4.4-11.[address] [facility] Comment on above: Performed By: #### L 3100.5440, L800.1280, L5500.0550, L803.2200, L2100.0000, L101.9900, L3300.1200, L3100.6900, L3410.2400, L500.4050, L3100.3425, L100.0100, L501.6710, L3200.1100 ####[facility] [address] [place], [place], [phone] CRPon 01-25-2024 C-REACTIVE PROT < 2.90 Normal 0.0-3.0 [facility] Comment on above: Order Comment: UNK Result Comment: C-Re active Protein (CRP) provides useful information for the diagnosis, therapy and monitoring of inflammatory processes and associated diseases. For the evaluation of Relative Risk for Cardiovascular Disease, a High Sensitivity CRP (HSCRP) should be ordered. Performed By: #### L 3100.5440, L800.1280, L5500.0550, L803.2200, L2100.0000, L101.9900, L3300.1200, L3100.6900, L3410.2400, L500.4050, L3100.3425, L100.0100, L501.6710, L3200.1100 ####[facility] [address] [facility] [place], [address] Comprehensive Metabolic Prof ilon 01-25-2024 Albumin [Mass/Vol] 3.6 g/dL Normal 3.2-5.[address] [facility] Comment on above: Order Comment: UNK Performed By: #### L 3100.5440, L800.1280, L5500.0550, L803.2200, L2100.0000, L101.9900, L3300.1200, L3100.6900, L3410.2400, L500.4050, L3100.3425, L100.0100, L501.6710, L3200.1100 ####[facility] [address] [facility] [place], [place], [phone] Albumin/Globulin [Mass ratio] 1.1 {ratio} Normal 0.9-2.4 [facility] Comment on above: Order Comment: UNK Performed By: #### L 3100.5440, L800.1280, L5500.0550, L803.2200, L2100.0000, L101.9900, L3300.1200, L3100.6900, L3410.2400, L500.4050, L3100.3425, L100.0100, L501.6710, L3200.1100 ####[facility] [address] [place], [place], [phone] ALK P 50 U/L Normal 45-117 [facility] Comment on above: Order Comment: UNK Performed By: #### L 3100.5440, L800.1280, L5500.0550, L803.2200, L2100.0000, L101.9900, L3300.1200, L3100.6900, L3410.2400, L500.4050, L3100.3425, L100.0100, L501.6710, L3200.1100 ####[facility] [address] [place], [place], [phone] ALT [Catalytic activity/Vol] 20 U/L Normal 13-56 [facility] Comment on above: Order Comment: UNK Performed By: #### L 3100.5440, L800.1280, L5500.0550, L803.2200, L2100.0000, L101.9900, L3300.1200, L3100.6900, L3410.2400, L500.4050, L3100.3425, L100.0100, L501.6710, L3200.1100 ####[facility] [address] [place], [place], [phone] AST [Catalytic activity/Vol] 19 U/L Normal 15-37 [facility] Comment on above: Order Comment: UNK Performed By: #### L 3100.5440, L800.1280, L5500.0550, L803.2200, L2100.0000, L101.9900, L3300.1200, L3100.6900, L3410.2400, L500.4050, L3100.3425, L100.0100, L501.6710, L3200.1100 ####[facility] [address] [place], [address] Bilirubin [Mass/Vol] 0.60 mg/dL Normal 0.20-1.00 [facility] Comment on above: Order Comment: UNK Result Comment: For patients on eltrombopag therapy, use of Dimension [place] TBIL is not recommended. Performed By: #### L 3100.5440, L800.1280, L5500.0550, L803.2200, L2100.0000, L101.9900, L3300.1200, L3100.6900, L3410.2400, L500.4050, L3100.3425, L100.0100, L501.6710, L3200.1100 ####[facility] [address] [place], [place], [phone] BUN/CRE 8.4 RATIO Low 10-20 [facility] Comment on above: Order Comment: UNK Performed By: #### L 3100.5440, L800.1280, L5500.0550, L803.2200, L2100.0000, L101.9900, L3300.1200, L3100.6900, L3410.2400, L500.4050, L3100.3425, L100.0100, L501.6710, L3200.1100 ####[facility] [address] [place], [place], [phone] CA,Total 8.6 mg/dL Normal 8.5-10.1 [facility] Comment on above: Order Comment: UNK Performed By: #### L 3100.5440, L800.1280, L5500.0550, L803.2200, L2100.0000, L101.9900, L3300.1200, L3100.6900, L3410.2400, L500.4050, L3100.3425, L100.0100, L501.6710, L3200.1100 ####[facility] [address] [place], [place], [phone] Chloride [Moles/Vol] 109 mmol/L High 98-107 [facility] Comment on above: Order Comment: UNK Performed By: #### L 3100.5440, L800.1280, L5500.0550, L803.2200, L2100.0000, L101.9900, L3300.1200, L3100.6900, L3410.2400, L500.4050, L3100.3425, L100.0100, L501.6710, L3200.1100 ####[facility] [address] [place], [place], [phone] CO2 [Moles/Vol] 25.0 mmol/L Normal 21.0-32.0 [facility] Comment on above: Order Comment: UNK Performed By: #### L 3100.5440, L800.1280, L5500.0550, L803.2200, L2100.0000, L101.9900, L3300.1200, L3100.6900, L3410.2400, L500.4050, L3100.3425, L100.0100, L501.6710, L3200.1100 ####[facility] [address] [place], [place], [phone]) Creatinine [Mass/Vol] 0.83 mg/dL Normal 0.55-1.02 [facility] Comment on above: Order Comment: UNK Result Comment: The validity of the calculated GFR GFRAA in patients over 70 years has not been determined. Clinical correlation is essential. Performed By: #### L 3100.5440, L800.1280, L5500.0550, L803.2200, L2100.0000, L101.9900, L3300.1200, L3100.6900, L3410.2400, L500.4050, L3100.3425, L100.0100, L501.6710, L3200.1100 ####[facility] [address] [place], [place], [phone] EST GFR - AA 96 mL/min Normal >60 [facility] Comment on above: Order Comment: UNK Result Comment: Afri can Vietnamese GFR Calc Performed By: #### L 3100.5440, L800.1280, L5500.0550, L803.2200, L2100.0000, L101.9900, L3300.1200, L3100.6900, L3410.2400, L500.4050, L3100.3425, L100.0100, L501.6710, L3200.1100 ####[facility] [address] [place], [place], [phone] GAP 5 Normal 5-15 [facility] Comment on above: Order Comment: UNK Performed By: #### L 3100.5440, L800.1280, L5500.0550, L803.2200, L2100.0000, L101.9900, L3300.1200, L3100.6900, L3410.2400, L500.4050, L3100.3425, L100.0100, L501.6710, L3200.1100 ####[facility] [address] [place], [address] GFR/1.73 sq M.predicted among non-blacks MDRD (S/P/Bld) [Vol rate/Area] 80 mL/min/{1.73_m2} Normal >60 [facility] Comment on above: Order Comment: UNK Result Comment: Non- GFR Calc Performed By: #### L 3100.5440, L800.1280, L5500.0550, L803.2200, L2100.0000, L101.9900, L3300.1200, L3100.6900, L3410.2400, L500.4050, L3100.3425, L100.0100, L501.6710, L3200.1100 ####[facility] [address] [place], [address] Globulin (S) [Mass/Vol] 3.3 g/dL Normal 2.2-4.2 [facility] Comment on above: Order Comment: UNK Performed By: #### L 3100.5440, L800.1280, L5500.0550, L803.2200, L2100.0000, L101.9900, L3300.1200, L3100.6900, L3410.2400, L500.4050, L3100.3425, L100.0100, L501.6710, L3200.1100 ####[facility] [address] [place], [place], [phone]([phone]) Glucose [Mass/Vol] 73 mg/dL Low 74-[address] [facility] Comment on above: Order Comment: UNK Performed By: #### L 3100.5440, L800.1280, L5500.0550, L803.2200, L2100.0000, L101.9900, L3300.1200, L3100.6900, L3410.2400, L500.4050, L3100.3425, L100.0100, L501.6710, L3200.1100 ####[facility] [address] [facility] [place], [place], [phone] Potassium [Moles/Vol] 3.6 mmol/L Normal 3.5-5.1 [facility] Comment on above: Order Comment: UNK Performed By: #### L 3100.5440, L800.1280, L5500.0550, L803.2200, L2100.0000, L101.9900, L3300.1200, L3100.6900, L3410.2400, L500.4050, L3100.3425, L100.0100, L501.6710, L3200.1100 ####[facility] [address] [place], [place], [phone] Sodium [Moles/Vol] 139 mmol/L Normal 136-[address] [facility] Comment on above: Order Comment: UNK Performed By: #### L 3100.5440, L800.1280, L5500.0550, L803.2200, L2100.0000, L101.9900, L3300.1200, L3100.6900, L3410.2400, L500.4050, L3100.3425, L100.0100, L501.6710, L3200.1100 ####[facility] [address] [place], [place], [id number] T PROT 6.9 g/dL Normal 6.4-8.2 [facility] Comment on above: Order Comment: UNK Performed By: #### L 3100.5440, L800.1280, L5500.0550, L803.2200, L2100.0000, L101.9900, L3300.1200, L3100.6900, L3410.2400, L500.4050, L3100.3425, L100.0100, L501.6710, L3200.1100 ####[facility] [address] [place], [place], [phone] Urea nitrogen [Mass/Vol] 7 mg/dL Normal 7-18 [facility] Comment on above: Order Comment: UNK Performed By: #### L 3100.5440, L800.1280, L5500.0550, L803.2200, L2100.0000, L101.9900, L3300.1200, L3100.6900, L3410.2400, L500.4050, L3100.3425, L100.0100, L501.6710, L3200.1100 ####[facility] [address] [place], [place], [phone] Erythrocyte Sed Rateon 01-24 SED RATE < 1 Normal 0-30 [facility] Comment on above: Performed By: #### L 3100.5440, L800.1280, L5500.0550, L803.2200, L2100.0000, L101.9900, L3300.1200, L3100.6900, L3410.2400, L500.4050, L3100.3425, L100.0100, L501.6710, L3200.1100 ####[facility] [address] [place], [address] Gastroenterology Visit Repor ton 01-25-2024 Gastroenterology Visit Report [facility] [address] [place] [address] OFFICE VISIT Date of Service: 01/25/24 MR#: [id number] Acct: [id number] Name: PASTOR BARNETT Rep #: [id number] : 1980 Provider: CRISTOFER Galvez Age/Sex: 43/F [place] [facility] [place]: Signed Intake Intake Visit Reasons: Diarrhea Chief Complaint: diarrhea, nausea, abdominal pain Allergies No Known Allergies Allergy (Verified 05/02/14 13:10) Medications ???Medication ???Instructions ???Recorded ???Confirmed ???Type levothyroxine 50 mcg tablet 50 mcg PO DAILY 05/02/14 10/21/23 History ondansetron 4 mg disintegrating 4 mg PO Q8H 10/21/23 01/25/24 History tablet terconazole 80 mg vaginal 1 supp vaginal QHS 10/21/23 01/25/24 History suppository cyclobenzaprine 5 mg tablet 5 mg PO DAILY PRN 01/25/24 01/25/24 History dicyclomine 10 mg capsule 10 mg PO BID PRN abdominal pain 01/25/24 01/25/24 Rx #30 caps PFSH Medical History (Updated 01/25/24 @ 09:21 by CRISTOFER Galvez) Atypical nevus of axilla Abdominal cramping in left upper quadrant Hematuria Lymphadenopathy Hyperactive bowel sounds Hypothyroidism Migraine syndrome GERD (gastroesophageal reflux disease) Social History (Updated 10/21/23 @ 09:15 by Marcie Mckoy LPN) household members: spouse and children number of children: 2 leisure activities: exercise Smoking Status: Never smoker alcohol intake: current alcohol intake frequency: holidays/special occasions only HPI HPI Chief Complaint: diarrhea, nausea, abdominal pain Details: PASTOR BARNETT, is a 43 F who presents to the office today for establishment with [facility]. She has a long history of GI problems including diarrhea, constipation, abdominal pain, heartburn and dysphagia to liquids. These symptoms have been around for 15 years but have become worse over the past 2 years. She has had to take off work and miss her children's events due to diarrhea. She has to pack extra pair of clothes in case she has diarrhea. She has identified some food triggers including onions, garlic, greasy foods and diary. She is constantly nauseous and feels she has abnormal bowel sounds. When she is having a lot of diarrhea she will have severe rectal pain that she has almost gone to the ED for. She denies ever having work up for autoimmune disease. She has never had an EGD or colonoscopy. ROS Const Constitutional: Positive for fatigue and headache(s); No fever(s) or weight change ENT ENT: Positive for headache(s) and difficulty swallowing Gastro GI: Positive for abdominal pain, bloating, constipation, diarrhea, heartburn, difficulty swallowing, excessive flatus and nausea/dyspepsia; No belching, change in bowel habits, change in stool character, coffee ground emesis, cramping, feeling full early, incontinent of stools, Vomiting blood/hematemesis, Blood in stool, loose stools, Black,tarry stools, pain with swallowing, vomiting or other Musc Musculoskeletal: Positive for back pain; No joint pain Skin Skin: No yellowing of the eye or itchy eyes Neuro Neurology: Positive for headache(s) Psych Psychiatric: No anxiety and No depression Endo Endocrine: Positive for fatigue; No weight change Aller/Imm Allergy/Immunologic: No itchy eyes Jaime/Lymp Hematologic/Lymphatic: Positive for easy bruising; No easy bleeding Exam Const General: cooperative and comfortable Nutritional Appearance: average body habitus and well nourished [facility] Head: normal to inspection Ears: hearing grossly normal bilaterally Nose: external nose normal Face and sinus: normal facial exam Eyes General: appearance normal, both eyes and all related structures Neck Neck: normal visual inspection Chest Chest palpation inspection: normal inspection of the chest Resp Effort Inspection: normal respiratory effort Auscultation: Bilateral: Clear to Auscultation Cardio Palpation: normal PMI GI Inspection: normal to inspection Palpation: no hepatosplenomegaly Skin General: no rashes or lesions noted Neuro General: patient alert Extrem General: normal to inspection Psych Affect: normal affect Assessment and Plan Assessment and Plan (1) Chronic diarrhea: Status: Chronic Plan: Patient is here today for establishment with [facility]. She has an extensive hx of GI symptoms including diarrhea, bloating, nausea, rectal pain, heartburn and dysphagia. She has never had a complete GI work up. Differential diagnosis includes IBD, IBS, EPI, SIBO, gastroparesis, or celiac disease. -We will order blood work; CRP, ESR, CBC, CMP, celiac, IBD, ANCA -Stool tests; lactoferrin, calprotectin, enteric pathogen, c.dif, Giardia -Ordered GES to rule out gastroparesis or dumping -Ordered gallbladder US to rule out functional gallbladder disorder -She would like to get (more content not included)... Normal [facility] HIP, UNI W/ Pelvis 2-3 Views on 01-25-2024 HIP, UNI W/ Pelvis 2-3 Views [facility] Imaging Services [address] [place], [place] [address] HIP, UNI W/ Pelvis 2-3 Views MR#: [id number] Acct: [id number] Name: PASTOR BARNETT Rep #: [id number] : 1980 F 43 From: Manohar Dahl DO PCP: Jonnie Nieto PA-C Status: REG CLI Study: HIP, UNI W/ Pelvis 2-3 Views Date of Exam: Exam# [id number] Ordering Dr: Jonnie Nieto [id number] INDICATION: BACK PAIN WITH RADICULOPATHY EXAMINATION/TECHNIQUE: X-RAY - XR Right Hip Unilateral with Pelvis when performed; 3 Views COMPARISON: FINDINGS: PELVIC BONES: No displaced fracture, destructive or sclerotic lesions. Note that overlapping bowel shadows may however obscure fine detail. Sacroiliac joints are unremarkable. No widening of the pubic symphysis. HIPS: The articular structures are unremarkable. No displaced fracture seen in this frontal view. SOFT TISSUES: No soft tissue swelling or gas. RAD/HIP, UNI W/ Pelvis 2-3 Views IMPRESSION: No evidence of displaced pelvic or hip fracture. Electronically Signed: Manohar Dahl DO at 19:51 EDT Reading Location ID and State: [facility] / [place] Tel [phone], Service support , CC: JESSICA Nieto Sports Clerk: Signed Normal [facility] L/S Spine Min 4 Views12-29 L/S Spine Min 4 Views [facility] Imaging Services [address] [place] [address] L/S Spine Min 4 Views MR#: [id number] Acct: [id number] Name: PASTOR BARNETT Rep #: [id number] : 1980 F 43 From: Manohar Dahl DO PCP: Jonnie Nieto PA-C Status: REG CLI Study: L/S Spine Min 4 Views Date of Exam: 01/25/24 Exam# [id number] Ordering Dr: Jonnie Nieto [id number] STUDY: X-RAY - LUMBAR SPINE REASON FOR EXAM: Female, 43 years old. BACK PAIN WITH RADICULOPATHY TECHNIQUE: 4 view(s) of the lumbar spine were obtained. COMPARISON: None FINDINGS: Normal lumbar lordosis. There is no substantial scoliosis. There is a normal alignment of the vertebrae. Normal vertebral bodies and endplates. Normal disc space heights. The soft tissue structures are unremarkable. RAD/L/S Spine Min 4 Views IMPRESSION: Normal x-ray examination of the lumbar spine. Electronically Signed: Manohar Dahl DO at 21:43 EDT Reading Location ID and State: [place] / [place] Tel [phone], Service support , CC: JESSICA Nieto Sports Clerk: Signed Normal [facility] SCRN MAMM (CAD)W/LUKAS [place] n 01-25-2024 SCRN MAMM (CAD)W/LUKAS BILAT [facility] Imaging Services [address] [place] [address] SCRN MAMM (CAD)W/LUKASZarina NATIONAT MR#: [id number] Acct: [id number] Name: PASTOR BARNETT Rep #: [id number] : 1980 F 43 From: José Antonio de la garza MD PCP: Jonnie Nieto PA-C Status: REG CLI Study: SCRN MAMM (CAD)W/LUKAS BILAT Date of Exam: 12/29 01/20 Exam# [id number] Ordering Dr: Jonnie Nieto [id number] MAMMOGRAPHY - BILATERAL SCREENING REASON FOR EXAM: Female, 43 years old. Routine annual screening examination. PERTINENT HISTORY: Non-contributory. TECHNIQUE: Digital bilateral breast lukas (3D mammographic acquisition) in the CC and MLO projections. 2-D mediolateral oblique (MLO) and craniocaudad (CC) views of both breasts were obtained. CAD: Full Field Digital Mammography with Computer Added Detection was performed. COMPARISON: Comparison is made with prior study December 17, 2020. FINDINGS: Breast Composition: The breasts are extremely dense, which lowers the sensitivity of mammography. There are no dominant masses or suspicious calcifications. No other significant abnormalities are identified. There has been no significant change since the prior study. BI/SCRN MAMM (CAD)W/LUKAS BILAT IMPRESSION: Stable bilateral screening mammogram. Yearly follow-up mammogram recommended. (A) ASSESSMENT CATEGORY: BIRADS Category 1: Negative. A letter regarding these results will be sent to the patient by the facility within 30 days. Approximately 10% of breast cancers are not detected by mammography. A normal mammogram should not delay biopsy of a clinically suspicious abnormality. [id number] Electronically Signed: José Antonio Palacios MD at 8:44 EDT , CC: JESSICA Nieto Sports Clerk: Signed Normal [facility] CBC, Employeeon 01-05-2024 Absolute Lymph 1.94 X10 3/uL Normal 0.83-4.51 [facility] Comment on above: Performed By: #### L 100.0200, L400.0100, L500.2900 #### [facility] Laboratory [address] [place], [address] Absolute Neut 4.9 X10 3/uL Normal 2.0-7.7 [facility] Comment on above: Performed By: #### L 100.0200, L400.0100, L500.2900 #### [facility] Laboratory [address] [place], [address] Basophils/100 WBC (Bld) 0.1 % Normal 0-1 [facility] Comment on above: Performed By: #### L 100.0200, L400.0100, L500.2900 #### [facility] Laboratory [address] [place], [address] Eosinophils/100 WBC (Bld) 0.4 % Normal 0-5 [facility] Comment on above: Performed By: #### L 100.0200, L400.0100, L500.2900 #### [facility] Laboratory [address] [place], [address] Erythrocyte distribution width (RBC) [Ratio] 12.3 % Normal 11.6-14.6 [facility] Comment on above: Performed By: #### L 100.0200, L400.0100, L500.2900 #### [facility] [address] [place], [address] Hematocrit (Bld) [Volume fraction] 39.8 % Normal 37-47 [facility] Comment on above: Performed By: #### L 100.0200, L400.0100, L500.2900 #### [facility] Laboratory [address] [place], [address] Hemoglobin (Bld) [Mass/Vol] 12.9 g/dL Normal 12.0-15.0 [facility] Comment on above: Performed By: #### L 100.0200, L400.0100, L500.2900 #### [facility] [address] [place], [address] Lymphocytes/100 WBC (Bld) 26.3 % Normal 19-41 [facility] Comment on above: Performed By: #### L 100.0200, L400.0100, L500.2900 #### [facility] Laboratory [address] [place], [address] MCH (RBC) [Entitic mass] 30.0 pg Normal 27.0-32.0 [facility] Comment on above: Performed By: #### L 100.0200, L400.0100, L500.2900 #### [facility] Laboratory [address] [place], [address] MCHC (RBC) [Mass/Vol] 32.4 g/dL Normal 32-36 [facility] Comment on above: Performed By: #### L 100.0200, L400.0100, L500.2900 #### [facility] [address] [place], [address] MCV (RBC) [Entitic vol] 92.6 fL Normal 81-99 [facility] Comment on above: Performed By: #### L 100.0200, L400.0100, L500.2900 #### [facility] [address] [place], [address] Monocytes/100 WBC (Bld) 6.9 % Normal 0-10 [facility] Comment on above: Performed By: #### L 100.0200, L400.0100, L500.2900 #### [facility] Laboratory [address] [place], [address] Neutrophils/100 WBC (Bld) 66.2 % Normal 47-70 [facility] Comment on above: Performed By: #### L 100.0200, L400.0100, L500.2900 #### [facility] [address] [place], [address] NRBC # 0.00 10 3/uL Normal 0-5 [facility] Comment on above: Performed By: #### L 100.0200, L400.0100, L500.2900 #### [facility] [address] [place], [address] Nucleated RBC (Bld) [#/Vol] 0 10*3/uL Normal 0-5 [facility] Comment on above: Performed By: #### L 100.0200, L400.0100, L500.2900 #### [facility] [address] [place], [address] Platelet mean volume (Bld) [Entitic vol] 10.5 fL Normal 6.2-12.0 [facility] Comment on above: Performed By: #### L 100.0200, L400.0100, L500.2900 #### [facility] [address] [place], [address] Platelets (Bld) [#/Vol] 297 10*3/uL Normal 150-450 [facility] Comment on above: Performed By: #### L 100.0200, L400.0100, L500.2900 #### [facility] [address] [place], [address] RBC (Bld) [#/Vol] 4.30 10*6/uL Normal 4.2-5.4 [facility] Comment on above: Performed By: #### L 100.0200, L400.0100, L500.2900 #### [facility] [address] [place], [address] RDW SD 42.1 fl Normal 35.1-43.9 [facility] Comment on above: Performed By: #### L 100.0200, L400.0100, L500.2900 #### [facility] [address] [place], [address] WBC (Bld) [#/Vol] 7.4 10*3/uL Normal 4.4-11.[address] [facility] Comment on above: Performed By: #### L 100.0200, L400.0100, L500.2900 #### [facility] Laboratory [address] [place], [address] Employee Profileon 4 Albumin [Mass/Vol] 3.6 g/dL Normal 3.2-5.[address] [facility] Comment on above: Performed By: #### L 100.0200, L400.0100, L500.2900 ####[facility] [address] [place], [address] Albumin/Globulin [Mass ratio] 1.1 {ratio} Normal 0.9-2.4 [facility] Comment on above: Performed By: #### L 100.0200, L400.0100, L500.2900 ####[facility] [address] [place], [address] ALK P 55 U/L Normal 45-117 [facility] Comment on above: Performed By: #### L 100.0200, L400.0100, L500.2900 ####[facility] [address] [place], [address] ALT [Catalytic activity/Vol] 22 U/L Normal 13-56 [facility] Comment on above: Performed By: #### L 100.0200, L400.0100, L500.2900 ####[facility] [address] [place], [address] AST [Catalytic activity/Vol] 19 U/L Normal 15-37 [facility] Comment on above: Performed By: #### L 100.0200, L400.0100, L500.2900 ####[facility] [address] [place], [address] Bilirubin [Mass/Vol] 0.40 mg/dL Normal 0.20-1.00 [facility] Comment on above: Result Comment: For patients on eltrombopag therapy, use of Dimension [place] TBIL is not recommended. Performed By: #### L 100.0200, L400.0100, L500.2900 ####[facility] [address] [place], [address] Bilirubin.direct [Mass/Vol] 0.11 mg/dL Normal 0.00-0.30 [facility] Comment on above: Performed By: #### L 100.0200, L400.0100, L500.2900 ####[facility] [address] [place], [address] BUN/CRE 11.3 RATIO Normal 10-20 [facility] Comment on above: Performed By: #### L 100.0200, L400.0100, L500.2900 ####[facility] [address] [place], [address] CA,Total 9.1 mg/dL Normal 8.5-10.1 [facility] Comment on above: Performed By: #### L 100.0200, L400.0100, L500.2900 ####[facility] [address] [place], [address] Chloride [Moles/Vol] 110 mmol/L High 98-107 [facility] Comment on above: Performed By: #### L 100.0200, L400.0100, L500.2900 ####[facility] [address] [place], [address] CHOL:HDL 2.50 Normal [facility] Comment on above: Performed By: #### L 100.0200, L400.0100, L500.2900 ####[facility] [address] [place], [address] Cholesterol [Mass/Vol] 184 mg/dL Normal 200 [facility] Comment on above: Result Comment: <200 mg/dL Desirable 200-240 mg/dL Borderline >240 mg/dL High Risk Performed By: #### L 100.0200, L400.0100, L500.2900 ####[facility] [address] [place], [address] Cholesterol in HDL [Mass/Vol] 74 mg/dL Normal [facility] Comment on above: Result Comment: The drugs N-Acetylcysteine and Metamizole may falsely depress this assay. Reference Range HDL <40 mg/dL Low HDL Cholesterol HDL >or= 60 mg/dL High HDL Cholesterol Performed By: #### L 100.0200, L400.0100, L500.2900 ####[facility] [address] [place], [address] Cholesterol in LDL [Mass/Vol] 97 mg/dL Normal 0-130 [facility] Comment on above: Performed By: #### L 100.0200, L400.0100, L500.2900 ####[facility] [address] [place], [address] Cholesterol in VLDL [Mass/Vol] 13 mg/dL Normal 5-40 [facility] Comment on above: Performed By: #### L 100.0200, L400.0100, L500.2900 ####[facility] [address] [place], [address] CO2 [Moles/Vol] 24.0 mmol/L Normal 21.0-32.0 [facility] Comment on above: Performed By: #### L 100.0200, L400.0100, L500.2900 ####[facility] [address] [place], [address] Creatinine [Mass/Vol] 0.71 mg/dL Normal 0.55-1.02 [facility] Comment on above: Result Comment: The validity of the calculated GFR GFRAA in patients over 70 years has not been determined. Clinical correlation is essential. Performed By: #### L 100.0200, L400.0100, L500.2900 ####[facility] [address] [place], [address] EST GFR - AA 116 mL/min Normal >60 [facility] Comment on above: Result Comment: Afri can Vietnamese GFR Calc Performed By: #### L 100.0200, L400.0100, L500.2900 ####[facility] [address] [place], [address] GAP 7 Normal 5-15 [facility] Comment on above: Performed By: #### L 100.0200, L400.0100, L500.2900 ####[facility] [address] [place], [address] GFR/1.73 sq M.predicted among non-blacks MDRD (S/P/Bld) [Vol rate/Area] 96 mL/min/{1.73_m2} Normal >60 [facility] Comment on above: Result Comment: Non- GFR Calc Performed By: #### L 100.0200, L400.0100, L500.2900 ####[facility] [address] [place], [address] Globulin (S) [Mass/Vol] 3.4 g/dL Normal 2.2-4.2 [facility] Comment on above: Performed By: #### L 100.0200, L400.0100, L500.2900 ####[facility] [address] [place], [address] Glucose [Mass/Vol] 77 mg/dL Normal 74-[address] [facility] Comment on above: Performed By: #### L 100.0200, L400.0100, L500.2900 ####[facility] [address] [place], [address] LDH 202 U/L Normal 84-246 [facility] Comment on above: Performed By: #### L 100.0200, L400.0100, L500.2900 ####[facility] [address] [place], [address] Phosphate [Mass/Vol] 3.5 mg/dL Normal 2.5-4.9 [facility] Comment on above: Performed By: #### L 100.0200, L400.0100, L500.2900 ####[facility] [address] [place], [address] Potassium [Moles/Vol] 3.7 mmol/L Normal 3.5-5.1 [facility] Comment on above: Performed By: #### L 100.0200, L400.0100, L500.2900 ####[facility] [address] [place], [address] Sodium [Moles/Vol] 141 mmol/L Normal 136-[address] [facility] Comment on above: Performed By: #### L 100.0200, L400.0100, L500.2900 ####[facility] [address] [place], [address] T PROT 7.0 g/dL Normal 6.4-8.2 [facility] Comment on above: Performed By: #### L 100.0200, L400.0100, L500.2900 ####[facility] [address] [place], [address] Triglyceride [Mass/Vol] 67 mg/dL Normal [facility] Comment on above: Result Comment: The drugs N-Acetylcysteine and Metamizole may falsely depress this assay. Serum Triglycerides Reference Interval Normal <150 mg/dL Borderline high 150 - 199 mg/dL High 200 - 499 mg/dL Very High > or = 500 mg/dL Performed By: #### L 100.0200, L400.0100, L500.2900 ####[facility] [address] [place], [address] Urea nitrogen [Mass/Vol] 8 mg/dL Normal 7-18 [facility] Comment on above: Performed By: #### L 100.0200, L400.0100, L500.2900 ####[facility] [address] [place], [address] URIC 3.3 mg/dL Normal 2.6-6.0 [facility] Comment on above: Result Comment: The drugs N-Acetylcysteine and Metamizole may falsely depress this assay. Performed By: #### L 100.0200, L400.0100, L500.2900 ####[facility] [address] [place], [address] Thyroid Stim Hormone (TSH)on 01-05-2024 TSH 0.66 uIU/mL Normal 0.358-3.74 [facility] Comment on above: Performed By: #### L 501.9520 #### [facility] Laboratory [address] [place], [address] Urinalysis, Employeeon 01-04 BILIRUBIN URINE Negative Normal Negative [facility] Comment on above: Performed By: #### L 100.0200, L400.0100, L500.2900 #### [facility] [address] [place], [address] Clarity (U) Clear Normal Clear [facility] Comment on above: Performed By: #### L 100.0200, L400.0100, L500.2900 #### [facility] [address] [place], [address] Color (U) Yellow Normal Yellow [facility] Comment on above: Performed By: #### L 100.0200, L400.0100, L500.2900 #### [facility] [address] [place], [address] GLUCOSE, UR Normal Normal Normal [facility] Comment on above: Performed By: #### L 100.0200, L400.0100, L500.2900 #### [facility] [address] [place], [address] KETONE UR Negative Normal Negative [facility] Comment on above: Performed By: #### L 100.0200, L400.0100, L500.2900 #### [facility] [address] [place], [address] LEUK ESTERASE Negative Normal Negative [facility] Comment on above: Performed By: #### L 100.0200, L400.0100, L500.2900 #### [facility] [address] [place], [address] Nitrite Ql (U) Negative Normal Negative [facility] Comment on above: Performed By: #### L 100.0200, L400.0100, L500.2900 #### [facility] [address] [place], [address] OCCULT BLOOD-UR 10 /ul Abnormal Negative [facility] Comment on above: Performed By: #### L 100.0200, L400.0100, L500.2900 #### [facility] [address] [place], [address] pH UR 6.5 Normal 5.0 - 8.0 [facility] Comment on above: Performed By: #### L 100.0200, L400.0100, L500.2900 #### [facility] [address] [place], [address] PROT DIPSTX Negative Normal Negative [facility] Comment on above: Performed By: #### L 100.0200, L400.0100, L500.2900 #### [facility] [address] [place], [address] SP.GR. DIPSTX 1.010 Normal 1.002-1.030 [facility] Comment on above: Performed By: #### L 100.0200, L400.0100, L500.2900 #### [facility] Laboratory [address] [place], [address] UROBILI Normal Normal Normal [facility] Comment on above: Performed By: #### L 100.0200, L400.0100, L500.2900 #### [facility] Laboratory [address] [place], [address] PT D/C Summary (1)on 024 PT D/C Summary (1) [facility] Physical Therapy [address] [place] [address] / REHABILITATION SERVICES DISCHARGE SUMMARY MR#: [id number] Acct: [id number] Name: PASTOR BARNETT Rep #: [id number] : 1980 43 From: Lisandro Love DPT, OCS, CSCS Referring DrLeatha: JESSICA Nieto Status: REG RCR Insurance: [facility] [employer] SEL[employer] PAY INSURANCE Discharge Summary D/C summary: It has been my pleasure to treat PASTOR BARNETT referred by Jonnie Nieto PA-C, with the diagnosis of s/p bunionectomy for a total of 2 visit(s). Discharge Date: Please see the following information for a summary of their discharge status. Subjective Subjective: stopped in to draft roller picker orthotics, declines education appointment or cut to fit. seema had these before Goals Goal 1:: fit for and I in use of custom orthotics Goal Progress: Goal Met Plan Plan: D/C t orthoitc use, pt to call if problems with them. D/C Information d/c sentence: If there are questions or concerns regarding this patient's physical therapy, please feel free to call me at [phone]. Thank you for the referral of this patient. Sincerely, Lisandro Love DPT, OSCAR, CSCS 07/05/23 1600 CC: JESSICA Nieto EBG Signed Normal [facility] Inital Evaluation (1) - PTon 06-13-2023 Inital Evaluation (1) - PT [facility] Physical Therapy [facility]. [address] [place] [id number] / REHABILITATION SERVICES INITIAL EVALUATION MR#: [id number] Acct: [id number] Name: PASTOR BARNETT Rep #: [id number] : 1980 43 From: Lisandro Love DPT, OSCAR, APOORVA Referring Dr.: JESSICA Nieto Status: REG RCR Insurance: [employer] SELF PAY INSURANCE Patient's Visit Information Visit Information Visit Information: LISAZhao BARNETT is a 43 year old F referred to Physical Therapy by Jonnie Nieto PA-C with a diagnosis of s/p bunionectomy. Date of Evaluation: 06/13/23 Physical Therapist: Lisandro Love DPT, OSCAR, CSCS Visit Plan Frequency: 2 visits total Plan: DPM orthotics molded and sent out and will call when they come back to fit shoe Subjective Subjective: I had bunionectomy done [address] Cho. Has a couple pairs that are old and broken down. Has some pain in L middle of foot at bootm. Intermittent with being on feet too long. Pain to 4/10 in last weeks and goes away sitting. Activities are pretty normal Wears current ones most of time in work shoes. 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 Pain worse after work. No regular exercises. Objective Objective: Mild pes planus B, transverse arch has flattened B. No tenderness in foot or ankle Full PROM metatrsals and AROM at ankle with 7 degrees DF B and full inv/ev/PF. 5/5 strength ankle motions. Good movement in toes Goals Goal 1:: fit for and I in use of custom orthotics Goal Time Frame: 2-4 Weeks Rehabilitation Potential Physical Therapy Diagnosis: Foot biomechanics that need managed to limit future problems Rehabilitation Potential: Good Anticipated Interventions Patient/Client Instruction: Educate patient on: Condition For the Purpose of:: To decrease pain Orthotics: Shoe insert For the Purpose of:: To decrease pain and To improve nutrient delivery to tissue Text: Thank you for the opportunity to evaluate your patient. For Medicare and Medicare HMO plans, please review the plan of care and approve it. It will need to be FAXED BACK to us at [phone] for Medicare purposes. For Medicare only, by signing this I certify the plan of care. Please let me know if there are questions or concerns regarding this plan of care. Physician Signature: Date: 06/13/23 0954 CC: JESSICA Nieto EBG Signed Normal [facility] Absolute lymphocyte countOrd ered By: Jonnie Nieto on 01-27-2023 Lymphocytes Auto (Unsp spec) [#/Vol] 4.73 10*3/uL 0.83-4.51 [facility] Basophil percentageOrdered B y: Jonnie Nieto on 01-27-2023 Basophils/100 WBC (Bld) 0.4 % 0-1 [facility] Eosinophils/100 WBC (Bld) 1.1 % 0-5 [facility] Neutrophils (Bld) [#/Vol] 3.9 10*3/uL 2.0-7.7 [facility] Neutrophils/100 WBC (Bld) 42.1 % 47-70 [facility] WBC (Bld) [#/Vol] 9.3 10*3/uL 4.4-11.[address] [facility] Blood erythrocytes count (nu mber/volume)Ordered By: [facility] on 01-27-2023 RBC (Bld) [#/Vol] 4.33 10*6/uL 4.2-5.4 [facility] Blood hemoglobin measurement (mass/volume)Ordered By: [facility] on 01-27-2023 Hemoglobin (Bld) [Mass/Vol] 13.2 g/dL 12.0-15.0 [facility] Blood lymphocytes/100 leukoc ytesOrdered By: [facility] on 01-27-2023 Lymphocytes/100 WBC (Bld) 50.9 % 19-41 [facility] Blood monocytes/100 leukocyt esOrdered By: [facility] on 01-27-2023 Monocytes/100 WBC (Bld) 5.3 % 0-10 [facility] Blood platelet mean volumeOr dered By: [facility] on 01-27-2023 Platelet mean volume (Bld) [Entitic vol] 11.2 fL 6.2-12.0 [facility] Determination of erythrocyte mean corpuscular volume (MCV)Ordered By: [facility] on 01-27-2023 MCV (RBC) [Entitic vol] 92.6 fL 81-99 [facility] Hematocrit Auto (Bld) [Volum e fraction]Ordered By: [facility] on 01-27-2023 Hematocrit (Bld) [Volume fraction] 40.1 % 37-47 [facility] Laboratory - Hematology and Cell countsOrdered By: [facility] on 01-27-2023 Erythrocyte distribution width (RBC) [Entitic vol] 43.8 fL 35.1-43.9 [facility] Erythrocyte distribution width (RBC) [Ratio] 12.8 % 11.6-14.6 [facility] Immature granulocytes/100 WBC (Bld) 0.200 % 0.0-0.9 [facility] Comment on above: IG% - Immature Granu locytes (promyelocytes, myelocytes and metamyelocytes) > 1% indicates that a LEFT SHIFT is Present. MCH (RBC) [Entitic mass] 30.5 pg 27.0-32.0 [facility] Nucleated RBC/100 WBC (Bld) [Ratio] 0 % 0-5 [facility] MCHC Auto (RBC) [Mass/Vol]Or dered By: Jonnie [employer] on 01-27-2023 MCHC (RBC) [Mass/Vol] 32.9 g/dL 32-36 [facility] No Panel InformationOrdered By: Jonnie [place] on 01-27-2023 Thyroid Stimulating Hormone (TSH) 2.76 uIU/mL 0.358-3.74 [facility] Platelets bldOrdered By: Delicia bruno [employer] [place] on 01-27-2023 Platelets (Bld) [#/Vol] 266 10*3/uL 150-450 [facility] Absolute lymphocyte countOrd ered By: HEALTH ASSESSMENT on 01-12-2023 Lymphocytes Auto (Unsp spec) [#/Vol] 1.74 10*3/uL 0.83-4.51 [facility] Absolute reticulocyte countO rdered By: HEALTH ASSESSMENT on 01-12-2023 Reticulocytes (Bld) [#/Vol] 0.00 10*3/uL 0-5 [facility] Basophil percentageOrdered B y: HEALTH ASSESSMENT on 01-12-2023 Basophil percentage 3.5 mg/dL 2.5-4.9 [facility] Bilirubin [Mass/Vol] 0.30 mg/dL 0.20-1.00 [facility] Comment on above: For patients on eltr ombopag therapy, use of Dimension [place] TBIL is not recommended. Chloride [Moles/Vol] 108 mmol/L 98-107 [facility] Cholesterol [Mass/Vol] 190 mg/dL <200 [facility] Comment on above: <200 mg/dL Desirable 200-240 mg/dL Borderline >240 mg/dL High Risk Glucose [Mass/Vol] 85 mg/dL 74-[address] [facility] LDH [Catalytic activity/Vol] 188 U/L 84-246 [facility] Neutrophils (Bld) [#/Vol] 6.4 10*3/uL 2.0-7.7 [facility] Potassium [Moles/Vol] 4.0 mmol/L 3.5-5.1 [facility] Protein [Mass/Vol] 6.9 g/dL 6.4-8.[address] [facility] Sodium [Moles/Vol] 139 mmol/L 136-[address] [facility] Triglyceride [Mass/Vol] 80 mg/dL <199 [facility] Comment on above: The drugs N-Acetylcy steine and Metamizole may falsely depress this assay.Serum Triglycerides Reference Interval Normal <150 mg/dL Borderline high 150 - 199 mg/dL High 200 - 499 mg/dL Very High > or = 500 mg/dL WBC (Bld) [#/Vol] 8.6 10*3/uL 4.4-11.[address] [facility] Bilirubin Test strip Ql (U)O rdered By: HEALTH ASSESSMENT on 01-12-2023 Bilirubin Ql (U) Negative Negative [facility] Blood erythrocytes count (nu mber/volume)Ordered By: HEALTH ASSESSMENT on 01-12-2023 RBC (Bld) [#/Vol] 4.22 10*6/uL 4.2-5.4 [facility] Blood hemoglobin measurement (mass/volume)Ordered By: HEALTH ASSESSMENT on 01-12-2023 Hemoglobin (Bld) [Mass/Vol] 12.5 g/dL 12.0-15.0 [facility] Blood platelet mean volumeOr dered By: HEALTH ASSESSMENT on 01-12-2023 Platelet mean volume (Bld) [Entitic vol] 10.0 fL 6.2-12.0 [facility] Determination of erythrocyte mean corpuscular volume (MCV)Ordered By: HEALTH ASSESSMENT on 01-12-2023 MCV (RBC) [Entitic vol] 94.8 fL 81-99 [facility] Direct bilirubinOrdered By: HEALTH ASSESSMENT on 01-12-2023 Bilirubin.direct [Mass/Vol] 0.08 mg/dL 0.00-0.30 [facility] Hematocrit Auto (Bld) [Volum e fraction]Ordered By: HEALTH ASSESSMENT on 01-12-2023 Hematocrit (Bld) [Volume fraction] 40.0 % 37-47 [facility] Ketones Test strip Ql (U)Ord ered By: HEALTH ASSESSMENT on 01-12-2023 Ketones Ql (U) Negative Negative [facility] Laboratory - Chemistry and C hemistry - challengeOrdered By: HEALTH ASSESSMENT on 01-12-2023 ALP [Catalytic activity/Vol] 50 U/L 45-117 [facility] ALT [Catalytic activity/Vol] 26 U/L 13-56 [facility] Cholesterol.total/Chol esterol in HDL [Mass ratio] 2.20 {ratio} [facility] CO2 [Moles/Vol] 26.0 mmol/L 21.0-32.0 [facility] Globulin (S) [Mass/Vol] 3.4 g/dL 2.2-4.2 [facility] Urea nitrogen/Creatinine [Mass ratio] 20.4 mg/mg 10-20 [facility] Laboratory - Hematology and Cell countsOrdered By: HEALTH ASSESSMENT on 01-12-2023 Erythrocyte distribution width (RBC) [Entitic vol] 45.4 fL 35.1-43.9 [facility] Erythrocyte distribution width (RBC) [Ratio] 13.1 % 11.6-14.6 [facility] MCH (RBC) [Entitic mass] 29.6 pg 27.0-32.0 [facility] Nucleated RBC/100 WBC (Bld) [Ratio] 0 % 0-5 [facility] MCHC Auto (RBC) [Mass/Vol]Or dered By: HEALTH ASSESSMENT on 01-12-2023 MCHC (RBC) [Mass/Vol] 31.3 g/dL 32-36 [facility] Nitrite Test strip Ql (U)Ord ered By: HEALTH ASSESSMENT on 01-12-2023 Nitrite Ql (U) Negative Negative [facility] No Panel InformationOrdered By: HEALTH ASSESSMENT on 01-12-2023 Estimated GFR (MDRD) Amer 111 mL/min >60 [facility] Comment on above: GFR Calc Estimated GFR (MDRD) Non-Af Amer 92 mL/min >60 [facility] Comment on above: Non- GFR Calc Platelets bldOrdered By: JAMEE [facility] ASSESSMENT on 01-12-2023 Platelets (Bld) [#/Vol] 319 10*3/uL 150-450 [facility] Protein Test strip Ql (U)Ord ered By: HEALTH ASSESSMENT on 01-12-2023 Protein Ql (U) Negative Negative [facility] Segmented neutrophils/100 WB C Auto (Bld)Ordered By: HEALTH ASSESSMENT on 01-12-2023 Segmented neutrophils/100 WBC (Bld) 74.7 % 47-70 [facility] Serum or plasma albumin bailee urement (mass/volume)Ordered By: HEALTH ASSESSMENT on 01-12-2023 Albumin [Mass/Vol] 3.5 g/dL 3.2-5.[address] [facility] Serum or plasma albumin/glob ulin mass ratioOrdered By: HEALTH ASSESSMENT on 01-12-2023 Albumin/Globulin [Mass ratio] 1.0 {ratio} 0.9-2.4 [facility] Serum or plasma calcium bailee urement (mass/volume)Ordered By: HEALTH ASSESSMENT on 01-12-2023 Calcium [Mass/Vol] 8.7 mg/dL 8.5-10.[address] [facility] Serum or plasma cholesterol in HDL measurement (mass/volume)Ordered By: HEALTH ASSESSMENT on 01-12-2023 Cholesterol in HDL [Mass/Vol] 86 mg/dL >40 [facility] Comment on above: The drugs N-Acetylcy steine and Metamizole may falsely depress this assay. Reference Range HDL <40 mg/dL Low HDL Cholesterol HDL >or= 60 mg/dL High HDL Cholesterol Serum or plasma cholesterol in VLDL measurement (mass/volume)Ordered By: HEALTH ASSESSMENT on 01-12-2023 Cholesterol in VLDL [Mass/Vol] 16 mg/dL 5-40 [facility] Serum or plasma creatinine m easurement (mass/volume)Ordered By: HEALTH ASSESSMENT on 01-12-2023 Creatinine [Mass/Vol] 0.73 mg/dL 0.55-1.02 [facility] Comment on above: The validity of the calculated GFR & GFRAA in patients over 70 years has not been determined. Clinical correlation is essential. Serum or plasma low density lipoprotein (LDL) cholesterol measurement (mass/volume)Ordered By: HEALTH ASSESSMENT on 01-12-2023 Cholesterol in LDL [Mass/Vol] 88 mg/dL 0-130 [facility] Serum or plasma urea nitroge n measurement (mass/volume)Ordered By: HEALTH ASSESSMENT on 01-12-2023 Urea nitrogen [Mass/Vol] 15 mg/dL 7-18 [facility] Serum or plasma uric acid me asurement (mass/volume)Ordered By: HEALTH ASSESSMENT on 01-12-2023 Urate [Mass/Vol] 3.6 mg/dL 2.6-6.0 [facility] Comment on above: The drugs N-Acetylcy steine and Metamizole may falsely depress this assay. Thin prep Papanicolaou smear with manual screeningOrdered By: HEALTH ASSESSMENT on 01-12-2023 Thin prep Papanicolaou smear with manual screening 15 U/L 15-37 [facility] Thin prep Papanicolaou smear with manual screening 5 5-15 [facility] Urine blood detectionOrdered By: HEALTH ASSESSMENT on 01-12-2023 RBC Ql (U) 10 /ul Negative [facility] Urine clarityOrdered By: A [facility] ASSESSMENT on 01-12-2023 Clarity (U) Clear Clear [facility] Urine color determinationOrd ered By: HEALTH ASSESSMENT on 01-12-2023 Color (U) Yellow Yellow [facility] Urine glucose detectionOrder ed By: HEALTH ASSESSMENT on 01-12-2023 Glucose Ql (U) Normal mg/dl Normal [facility] Urine leukocyte esterase det ection by dipstickOrdered By: HEALTH ASSESSMENT on 01-12-2023 Leukocyte esterase Test strip Ql (U) Negative Negative [facility] Urine pHOrdered By: HEALTH A SSESSMENT on 01-12-2023 pH (U) 6.5 [pH] 5.0 - 8.0 [facility] Urine specific gravity measu rementOrdered By: HEALTH ASSESSMENT on 01-12-2023 Specific gravity (U) [Rel density] 1.015 1.002-1.030 [facility] Urobilinogen Auto test strip Ql (U)Ordered By: HEALTH ASSESSMENT on 01-12-2023 Urobilinogen Ql (U) Normal mg/dl Normal [facility] No Panel Informationon 01-18 Thyroid Stimulating Hormone (TSH) 1.77 uIU/mL 0.358-3.74 [facility] Work Phone: Absolute lymphocyte counton 12-25-2021 Lymphocytes Auto (Unsp spec) [#/Vol] 2.46 10*3/uL 0.83-4.51 [facility] Work Phone: Absolute reticulocyte counto n 12-25-2021 Reticulocytes (Bld) [#/Vol] 0.00 10*3/uL 0-5 [facility] Work Phone: [phone] Basophil percentageon 2021 Basophil percentage 3.7 mg/dL 2.5-4.9 [facility] Work Phone: [phone] Bilirubin [Mass/Vol] 0.30 mg/dL 0.20-1.00 [facility] Work Phone: Comment on above: For patients on eltr ombopag therapy, use of Dimension [place] TBIL is not recommended. Chloride [Moles/Vol] 109 mmol/L 98-107 [facility] Work Phone: [phone] Cholesterol [Mass/Vol] 159 mg/dL <200 [facility] Work Phone: Comment on above: <200 mg/dL Desirable 200-240 mg/dL Borderline >240 mg/dL High Risk Glucose [Mass/Vol] 79 mg/dL 74-[address] [facility] Work Phone: [phone] Neutrophils (Bld) [#/Vol] 3.4 10*3/uL 2.0-7.7 [facility] Work Phone: [phone] Potassium [Moles/Vol] 3.9 mmol/L 3.5-5.1 [facility] Work Phone: [phone] Protein [Mass/Vol] 6.6 g/dL 6.4-8.[address] [facility] Work Phone: [phone] Sodium [Moles/Vol] 139 mmol/L 136-[address] [facility] Work Phone: [phone] Triglyceride [Mass/Vol] 68 mg/dL <199 [facility] Work Phone: Comment on above: The drugs N-Acetylcy steine and Metamizole may falsely depress this assay.Serum Triglycerides Reference Interval Normal <150 mg/dL Borderline high 150 - 199 mg/dL High 200 - 499 mg/dL Very High > or = 500 mg/dL WBC (Bld) [#/Vol] 6.4 10*3/uL 4.4-11.[address] [facility] Work Phone: Bilirubin Test strip Ql (U)o n 12-25-2021 Bilirubin Ql (U) Negative Negative [facility] Work Phone: Blood erythrocytes count (nu mber/volume)on 12-25-2021 RBC (Bld) [#/Vol] 4.12 10*6/uL 4.2-5.4 [facility] Work Phone: Blood hemoglobin measurement (mass/volume)on 12-25-2021 Hemoglobin (Bld) [Mass/Vol] 11.8 g/dL 12.0-15.0 [facility] Work Phone: Blood platelet mean volumeon 12-25-2021 Platelet mean volume (Bld) [Entitic vol] 10.3 fL 6.2-12.0 [facility] Work Phone: Determination of erythrocyte mean corpuscular volume (MCV)on 12-25-2021 MCV (RBC) [Entitic vol] 88.8 fL 81-99 [facility] Work Phone: Direct bilirubinon Bilirubin.direct [Mass/Vol] 0.10 mg/dL 0.00-0.30 [facility] Work Phone: Hematocrit Auto (Bld) [Volum e fraction]on 12-25-2021 Hematocrit (Bld) [Volume fraction] 36.6 % 37-47 [facility] Work Phone: Ketones Test strip Ql (U)on 12-25-2021 Ketones Ql (U) Negative Negative [facility] Work Phone: Laboratory - Chemistry and C hemistry - challengeon 12-25-2021 ALP [Catalytic activity/Vol] 49 U/L 45-117 [facility] Work Phone: ALT [Catalytic activity/Vol] 21 U/L 13-56 [facility] Work Phone: Cholesterol.total/Chol esterol in HDL [Mass ratio] 2.50 {ratio} [facility] Work Phone: CO2 [Moles/Vol] 27.0 mmol/L 21.0-32.0 [facility] Work Phone: [phone] Globulin (S) [Mass/Vol] 3.1 g/dL 2.2-4.2 [facility] Work Phone: [phone] Urea nitrogen/Creatinine [Mass ratio] 13.0 mg/mg 10-20 [facility] Work Phone: [phone] Laboratory - Hematology and Cell countson 12-25-2021 Erythrocyte distribution width (RBC) [Entitic vol] 43.2 fL 35.1-43.9 [facility] Work Phone: [phone] Erythrocyte distribution width (RBC) [Ratio] 13.3 % 11.6-14.6 [facility] Work Phone: [phone] MCH (RBC) [Entitic mass] 28.6 pg 27.0-32.0 [facility] Work Phone: Nucleated RBC/100 WBC (Bld) [Ratio] 0 % 0-5 [facility] Work Phone: MCHC Auto (RBC) [Mass/Vol]on 12-25-2021 MCHC (RBC) [Mass/Vol] 32.2 g/dL 32-36 [facility] Work Phone: Nitrite Test strip Ql (U)on 12-25-2021 Nitrite Ql (U) Negative Negative [facility] Work Phone: No Panel Informationon 12-25 Estimated GFR (MDRD) Amer 120 mL/min >60 [facility] Work Phone: Comment on above: GFR Calc Estimated GFR (MDRD) Non-Af Amer 99 mL/min >60 [facility] Work Phone: Comment on above: Non- GFR Calc Platelets bldon 12-25-2021 Platelets (Bld) [#/Vol] 316 10*3/uL 150-450 [facility] Work Phone: Protein Test strip Ql (U)on 12-25-2021 Protein Ql (U) Negative Negative [facility] Work Phone: Segmented neutrophils/100 WB C Auto (Bld)on 12-25-2021 Segmented neutrophils/100 WBC (Bld) 52.2 % 47-70 [facility] Work Phone: Serum or plasma albumin bailee urement (mass/volume)on 12-25-2021 Albumin [Mass/Vol] 3.5 g/dL 3.2-5.[address] [facility] Work Phone: Serum or plasma albumin/glob ulin mass ratioon 12-25-2021 Albumin/Globulin [Mass ratio] 1.1 {ratio} 0.9-2.4 [facility] Work Phone: Serum or plasma calcium bailee urement (mass/volume)on 12-25-2021 Calcium [Mass/Vol] 8.6 mg/dL 8.5-10.[address] [facility] Work Phone: Serum or plasma cholesterol in HDL measurement (mass/volume)on 12-25-2021 Cholesterol in HDL [Mass/Vol] 63 mg/dL >40 [facility] Work Phone: Comment on above: The drugs N-Acetylcy steine and Metamizole may falsely depress this assay. Reference Range HDL <40 mg/dL Low HDL Cholesterol HDL >or= 60 mg/dL High HDL Cholesterol Serum or plasma cholesterol in VLDL measurement (mass/volume)on 12-25-2021 Cholesterol in VLDL [Mass/Vol] 14 mg/dL 5-40 [facility] Work Phone: Serum or plasma creatinine m easurement (mass/volume)on 12-25-2021 Creatinine [Mass/Vol] 0.69 mg/dL 0.55-1.02 [facility] Work Phone: Comment on above: The validity of the calculated GFR & GFRAA in patients over 70 years has not been determined. Clinical correlation is essential. Serum or plasma low density lipoprotein (LDL) cholesterol measurement (mass/volume)on 12-25-2021 Cholesterol in LDL [Mass/Vol] 82 mg/dL 0-130 [facility] Work Phone: Serum or plasma urea nitroge n measurement (mass/volume)on 12-25-2021 Urea nitrogen [Mass/Vol] 9 mg/dL 7-18 [facility] Work Phone: Serum or plasma uric acid me asurement (mass/volume)on 12-25-2021 Urate [Mass/Vol] 3.0 mg/dL 2.6-6.0 [facility] Work Phone: Comment on above: The drugs N-Acetylcy steine and Metamizole may falsely depress this assay. Thin prep Papanicolaou smear with manual screeningon 12-25-2021 Thin prep Papanicolaou smear with manual screening 14 U/L 15-37 [facility] Work Phone: Thin prep Papanicolaou smear with manual screening 3 5-15 [facility] Work Phone: Thin prep Papanicolaou smear with manual screening 174 U/L 84-246 [facility] Work Phone: Urine blood detectionon 11-28 RBC Ql (U) Negative Negative [facility] Work Phone: Urine clarityon 12-25-2021 Clarity (U) Clear Clear [facility] Work Phone: Urine color determinationon 12-25-2021 Color (U) Straw Yellow [facility] Work Phone: Urine glucose detectionon Glucose Ql (U) Normal mg/dl Normal [facility] Work Phone: [phone] Urine leukocyte esterase det ection by dipstickon 12-25-2021 Leukocyte esterase Test strip Ql (U) Negative Negative [facility] Work Phone: [phone] Urine pHon 12-25-2021 pH (U) 7.0 [pH] 5.0 - 8.0 [facility] Work Phone: [phone] Urine specific gravity measu rementon 12-25-2021 Specific gravity (U) [Rel density] 1.005 1.002-1.030 [facility] Work Phone: Urobilinogen Auto test strip Ql (U)on 12-25-2021 Urobilinogen Ql (U) Normal mg/dl Normal [facility] Work Phone: Encounters Encounter Date Encounter Type Care Provider Facility Start: 04-13-2024 Encounter for other preprocedural examination Ry Tirado [facility] Start: 03-22-2024 ambulatory Jonnie Mexican Hat PA Facil ity:[facility] Start: 03-22-2024 End: 03-22-2024 ambulatory Jonnie Mexican Hat PA Facility:[facility] Start: 03-01-2024 End: 03[facility] Start: 02-07-2024 End: 02-07-2024 ambulatory [facility] Facility:[facility] Start: 02-01-2024 End: 02-01-2024 ambulatory Jonnie Hills PA Facility:[facility] Start: 01-25-2024 End: 01-26-2024 ambulatory Jonnie Hills PA Facility:[facility] Start: 01-25-2024 End: 01-25-2024 ambulatory Jonnie Hills PA Facility:[facility] Start: 01-20-2024 ambulatory [facility] Start: 01-10-2024 ambulatory [facility] PA Facil ity:[facility] Start: 01-05-2024 ambulatory [facility] PA Facil ity:[facility] Start: 01-05-2024 End: 01-05-2024 ambulatory [facility] PA Facility:[facility] Start: 09-07-2023 ambulatory [facility] Start: 06-13-2023 End: 06-13-2023 Discharged Recurring [facility] Work Phone: Start: 06-13-2023 End: 06-13-2023 ambulatory [facility] PA [facility] Work Phone: Start: 01-27-2023 End: 01-27-2023 ambulatory [facility] Work Phone: Start: 01-27-2023 End: 01-27-2023 Patient encounter procedure Latonya Richard [facility] Work Phone: Start: 01-12-2023 Registered [facility] Start: 01-18-2022 End: 01-18-2022 ambulatory [facility] Work Phone: Start: 01-18-2022 End: 01-18-2022 Patient encounter procedure Latonya Richard [facility] Start: 12-25-2021 Registered [facility] Payers Date Payer Category Payer Self-pay [id number] 2023 Unknown [id number] 2013 Unknown [id number] 1980 Unknown [id number] 2.16.8 [id number] Unknown [id number] 2.16.8 [id number] Unknown [id number] 2.16.8 [id number] Unknown [id number] 2.16.8 40.1.344873.3.579.2.462 Unknown [id number] 2.16.8 40.1.692211.3.579.2.462 Unknown [id number] 2.16.8 40.1.042405.3.579.2.462 Unknown [id number] 2.16.8 40.1.109088.3.579.2.462 Unknown [id number] 2.16.8 40.1.064562.3.579.2.462 Unknown [id number] 2.16.8 40.1.334621.3.579.2.462 Unknown [id number] 2.16.8 40.1.479153.3.579.2.462 Unknown [id number] 2.16.8 40.1.138412.3.579.2.462 Unknown [id number] 2.16.8 40.1.740182.3.579.2.462 Unknown [id number] 2.16.8 40.1.662849.3.579.2.462 Unknown [id number] 2.16.8 40.1.166508.3.579.2.462 Social History Date Type Detail Facility Start: 05-02-2014 End: 05-02-2014 Tobacco smoking status NHIS Unknown if ever smoked [facility] Start: 1980 Sex Assigned At Female W [facility] Clinical Note 03-22-2024 Note Date & Type Note Facility 03-22-2024 Note [facility] Medical Records Department [address] [place] [address] History Physical Exam 03/22/24 0638 MR#: [id number] Acct: [id number] Name: PASTOR BARNETT Rep #: [id number] : 1980 43 From: Ry Friend DO PCP: Jonnie Nieto PA-C Status:[facility] Location: [place] [address] History and Physical Date of Admission: 03/22/24 PASTOR BARNETT, is a 43 F who presents to the office today for establishment with [facility]. She has a long history of GI problems including diarrhea, constipation, abdominal pain, heartburn and dysphagia to liquids. These symptoms have been around for 15 years but have become worse over the past 2 years. She has had to take off work and miss her children's events due to diarrhea. She has to pack extra pair of clothes in case she has diarrhea. She has identified some food triggers including onions, garlic, greasy foods and diary. She is constantly nauseous and feels she has abnormal bowel sounds. When she is having a lot of diarrhea she will have severe rectal pain that she has almost gone to the ED for. She denies ever having work up for autoimmune disease. She has never had an EGD or colonoscopy. ROS Const Constitutional: Positive for fatigue and headache(s); No fever(s) or weight change ENT ENT: Positive for headache(s) and difficulty swallowing Gastro GI: Positive for abdominal pain, bloating, constipation, diarrhea, heartburn, difficulty swallowing, excessive flatus and nausea/dyspepsia; No belching, change in bowel habits, change in stool character, coffee ground emesis, cramping, feeling full early, incontinent of stools, Vomiting blood/hematemesis, Blood in stool, loose stools, Black,tarry stools, pain with swallowing, vomiting or other Musc Musculoskeletal: Positive for back pain; No joint pain Skin Skin: No yellowing of the eye or itchy eyes Neuro Neurology: Positive for headache(s) Psych Psychiatric: No anxiety and No depression Endo Endocrine: Positive for fatigue; No weight change Aller/Imm Allergy/Immunologic: No itchy eyes Jaime/Lymp Hematologic/Lymphatic: Positive for easy bruising; No easy bleeding Exam Const General: cooperative and comfortable Nutritional Appearance: average body habitus and well nourished HENMT Head: normal to inspection Ears: hearing grossly normal bilaterally Nose: external nose normal Face and sinus: normal facial exam Eyes General: appearance normal, both eyes and all related structures Neck Neck: normal visual inspection Chest Chest palpation inspection: normal inspection of the chest Resp Effort Inspection: normal respiratory effort Auscultation: Bilateral: Clear to Auscultation Cardio Palpation: normal PMI GI Inspection: normal to inspection Palpation: no hepatosplenomegaly Skin General: no rashes or lesions noted Neuro General: patient alert Extrem General: normal to inspection Psych Affect: normal affect Assessment and Plan Assessment and Plan (1) Chronic diarrhea: Status: Chronic Plan: Patient is here today for establishment with [facility]. She has an extensive hx of GI symptoms including diarrhea, bloating, nausea, rectal pain, heartburn and dysphagia. She has never had a complete GI work up. Differential diagnosis includes IBD, IBS, EPI, SIBO, gastroparesis, or celiac disease. -We will order blood work; CRP, ESR, CBC, CMP, celiac, IBD, ANCA -Stool tests; lactoferrin, calprotectin, enteric pathogen, c.dif, Giardia -Ordered GES to rule out gastroparesis or dumping -Ordered gallbladder US to rule out functional gallbladder disorder -She would like to get an EGD and colonoscopy. We will schedule this for her -Prescribed dicyclomine for rectal and abdominal pain. She has taken hyoscyamine in the past but made her feel dry. She will try taking it as needed instead of scheduled. -She will f/u in 3 months and we will call her in the mean time to review results (2) Diarrhea: Status: Acute Orders: Orders CBC W/Diff, Automated Today R19.7 - Diarrhea, unspecified ANCA Today R19.7 - Diarrhea, unspecified Angiotensin Convert Enzyme Today R19.7 - Diarrhea, unspecified Anti-Mitochondrial AB Today R19.7 - Diarrhea, unspecified Anti-Smooth Muscle ABS Today R19.7 - Diarrhea, unspecified Celiac Disease Profile Today R19.7 - Diarrhea, unspecified Comprehensive Metabolic Profil Today R19.7 - Diarrhea, unspecified CRP Today R19.7 - Diarrhea, unspecified Erythrocyte Sed Rate Today R19.7 - Diarrhea, unspecified Allergen, Food Profile 14 Today R19.7 - Diarrhea, unspecified HIRO Comprehensive Panel Today R19.7 - Diarrhea, unspecified Calprotectin, Stool Today R19.7 - Diarrhea, unspecified Immunoglobulins G/A/M/E Today R19.7 - Diarrhea, unspecified Ova and Parasites 8623 Today K58.9 - Irritable bowel syndrome without diarrhea, R19.7 - Diarrhea, unspecified Pa (more content not included)... [facility] Discharge summary 07-05-2023 Note Date & Type Note Facility 07-05-2023 Discharge summary Note Date/Time July 05, 2023 4:00pm [facility] Physical Therapy [facility] [address] [place] [address] / REHABILITATION SERVICES DISCHARGE SUMMARY MR#: [id number] Acct: [id number] Name: PASTOR BARNETT Rep #: [id number] : 1980 43 From: Lisandro Love DPT, OCS, CSCS Referring DrLeatha: JESSICA Nieto Status: REG RCR Insurance: [employer] SEL[employer]Y [employer]URANCE Discharge Summary D/C summary: It has been my pleasure to treat PASTOR BARNETT referred by Jonnie Nieto PA-C, with the diagnosis of s/p bunionectomy for a total of 2 visit(s). Discharge Date: Please see the following information for a summary of their discharge status. Subjective Subjective: stopped in to draft roller picker orthotics, declines education appointment or cut to fit. seema had these before Goals Goal 1:: fit for and I in use of custom orthotics Goal Progress: Goal Met Plan Plan: D/C t orthoitc use, pt to call if problems with them. D/C Information d/c sentence: If there are questions or concerns regarding this patient's physical therapy, please feel free to call me at [phone]. Thank you for the referral of thispatient. 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 RX HERE Summary Purpose Family History No Family History Records FoundNo Family History Records Found Advance Directives No Advanced Directives Records FoundNo Advanced Directives Records Found Additional Source Comments Goals (unrecognized section and content) Goals may be documented in a n alternate sectionGoals may be documented in an alternate sectionGoals may be documented in an alternate section Care Teams (unrecognized sec tion and content) Team Status: Active Member Role Status Dates Jonnie CLEVELAND PA-C Family Provider Active Jonnie CLEVELAND PA-C Primary Care Provider Active Team Status: Active Member Role Status Dates Jonnie CLEVELAND PA-C Primary Care Provider Active Health Risk Assessment Attending Provider, Referring Jaclyn hall Active Team Status: Inactive Member Role Status Dates Jonnie CLEVELAND PA-C Primary Care Pro vider, Attending Provider, Referring Provider Active INFORMATION SOURCE (unrecogn ized section and content) DATE CREATED AUTHOR 01/22/2024 Andrew Givens [facility] DATE CREATED AUTHOR 'S JEANINE ATION 04/16/2024 [facility] FOR RECORDS PERTAINING TO PATIENTS WHO ARE [...] BE BASED ON THE PRIMARY CLINICAL RECORDS. [facility] [employer] [facility]. provides no warranty or guarantee of the accuracy or completeness of information in this document.
--- OUTSIDE RECORDS SUMMARY | 2024-12-11 21:52 | XMS RPT_ITS | CCD ---
Author Organization [facility] Care Team Providers Care Bi Solutions Architect Name Role Phone HILLS, JONNIE Admitting Unavailable HILLS, JONNIE Attending Unavailable [place], JONNIE Primary Care Unavailable [place], JONNIE Admitting Unavailable [place], JONNIE Attending Unavailable [place], JONNIE Primary Care Unavailable [place] PA, Jonnie Primary Care Unavailable Dinorah Mcrae Attending Unavailable [place] PA, Jonnie Referring Unavailable [place] PA, Jonnie Referring Unavailable [place] PA, Jonnie Attending Unavailable [place] PA, Jonnie Primary Care Unavailable [place] PA, Jonnie Primary Care Unavailable Dinorah Mcrae Attending Unavailable Dinorah Mcrae Referring Unavailable [place] PA, Jonnie Attending Unavailable [place] PA, Jonnie Primary Care Unavailable [place] PA, Jonnie Referring Unavailable [place] PA, Jonnie Primary Care Unavailable Assessment, Health Risk Attending Unavaila ble Assessment, Health Risk Referring Unavaila ble [place] PA, Jonnie Primary Care Unavailable [place] PA, Jonnie Attending Unavailable [place] PA, Jonnie Referring Unavailable [place] PA, Jonnie Primary Care Unavailable Friend, Ry Attending Unavailable [place] PA, Jonnie Referring Unavailable [place] PA, Jonnie Primary Care Unavailable Dinorah Mcrae Attending Unavailable [place] PA, Jonnie Primary Care Unavailable Dinorah Mcrae Attending Unavailable Dinorah Mcrae Referring Unavailable [place] PA, Jonnie Primary Care Unavailable Dinorah Mrcae Referring Unavailable Dinorah Mcrae Attending Unavailable [place] PA, Jonnie Referring Unavailable [place] PA, Jonnie Primary Care Unavailable Friend, Ry Consulting Unavailable Friend, Ry Attending Unavailable [place] PA, Jonnie Primary Care Unavailable [place] PA, Jonnie Attending Unavailable [place] PA, Jonnie Referring Unavailable [place] PA, Jonnie Referring Unavailable [place] PA, Jonnie Attending Unavailable [place] PA, Jonnie Primary Care Unavailable Medications Current [...] [facility] Colonoscopy Reporton 024 Colonoscopy Report [facility] Medical Records Department [address] [place] [address] Colonoscopy Report MR#: [id number] Acct: [id number] Name: YONY BARNETTLAWRENCE Thomson Rep #: [id number] : 1980 43 From: Ry Tirado DO PCP: Jonnie Nieto PA-C Status:REG [facility] Patient Name: Pastor Baronlois Procedure Date: 03/22/2024 [...] screening purposes. Procedure Code(s): --- Professional --- 19536, Colonoscopy, flexible; with biopsy, single or multiple CPT copyright 2021 [employer]. All rights reserved. The codes documented in this report are preliminary and upon transport specialist review may be revised to meet current compliance requirements. Ry Tirado DO 03/22/2024 7:34:43 AM This report has been signed electronically. Number of Addenda: 0 Note Initiated On: 03/22/2024 7:00 AM 03/22/24 0734 Date Ry Tirado DO Cosigner Signature: Date (if indicated) CC: JESSICA Nieto; Ry Tirado DO Date Dictated: 03/22/24 0700 Date Transcribed: [employer] Librarian: JOAQUIN Signed Normal [facility] EGD Reporton 03-22-2024 EGD Report [facility] Medical Records Department [address] [place] [address] EGD Report MR#: [id number] Acct: [id number] Name: PASTOR BARNETT Rep #: [id number] : 1980 43 From: Ry Tirado DO PCP: Jonnie Neito PA-C Status:REG [facility] Patient Name: Pastor Barnett Procedure Date: 03/22/2024 [...] pathology results. Procedure Code(s): --- Professional --- 14550, Esophagogastroduodenoscopy, flexible, transoral; with biopsy, single or multiple CPT copyright 2021 [employer]. All rights reserved. The codes documented in this report are preliminary and upon transport specialist review may be revised to meet current compliance requirements. Ry Tirado DO 03/22/2024 7:29:40 AM This report has been signed electronically. Number of Addenda: 0 Note Initiated On: 03/22/2024 6:47 AM 03/22/24 0730 Date Ry Vick Signature: Date (if indicated) CC: JESSICA Nieto; Ry Dwyer (more content not included)... Normal [facility] H Pylori (initial)on H Pylori (initial) ------- Patient Age/Sex Location Account Attending Physician PASTOR BARNETT 43/F EN [id number] Ry Tirado DO Specimen: [id number] Received: 03/22/24 Status: CHERYL Hopkins Num: [id number] Spec Type: IMMUNO Subm Dr: Ry Tirado, PHYSICIAN INSTITUTION [place] [address] SPECIMEN INFORMATION: Tissue Source: B- Gastric body biopsy Clinical Info: GI symptoms including diarrhea, bloating and nausea Specimen Number: [id number] B CPT code: 49036 METHODOLOGY: Deparaffinized sections of prefer/formalin-fixed tissue or [...] developed and their performance characteristics determined by [facility]. They may not have been cleared or approved by the U.S. Food and Drug Administration. The FDA has determined that such clearance or approval is not necessary. The above immunohistochemical/dualISH markers are ordered and reviewed by the Pathologist. INTERPRETATION: B. Gastric body, biopsy: Negative for Helicobacter pylori organisms. 03/23/2024 Signed (signature on file) Dr. Nirav Lea MD 03/23/24 1232 Normal [facility] Comment on above: Performed By: #### P H.PYLORI #### [facility] [address] [facility] [place], [place], [address] MR/POSTOP.Miguel 03-22-2024 MR/POSTOP.ABEBE [facility] Medical Records Department [address] [place] [address] Anesthesia Postop Eval I 03/22/24 0731 MR#: [id number] Acct: [id number] Name: PASTOR BARNETT Rep #: [id number] : 1980 43 From: Mckay Carlson PCP: Jonnie Nieto PA-C Status:REG SDC Y Race: C Location: [place] [address] Anesthesia: Postop Eval I Current Vital Signs [...] Mckay Joseph Signature: Date CC: Signed [facility] MR/TMRGIEMO1bo 03-22-2024 MR/POSTOPAN2 [facility] Medical Records Department [address] [place] [address] Anesthesia Postop Eval II 03/22/24739 MR#: [id number] Acct: [id number] Name: PASTOR BARNETT Rep #: [id number] : 1980 43 From: Efrain Murrieta MD PCP: Jonnie Nieto PA-C Status:REG [facility] Y Race: C Location: [place] [address] Anesthesia Postop Eval I Sum Postop Eval [...] Efrain Joseph Signature: Date CC: Signed [facility] ,Urineon 03-22-2024 Beta HCG ( test) Ql (U) Negative Normal [facility] Comment on above: Result Comment: Very dilute urine specimens, as indicated by a low specific gravity, may not contain livestock sales representative levels of hCG. If is still suspected, a first morning urine specimen should be collected 48 hours later and tested. Performed By: #### L 400.7600 ####[facility] [address] [place], [address] Special Stain Group Ion 10-2 Special Stain Group I --------- Patient Age/Sex Location Account Attending Physician PASTOR BARNETT 43/F ANITRA [id number] Ry Tirado DO Specimen: [id number] Received: 03/22/24 Status: CHERYL Hopkins Num: [id number] Spec Type: COLON BX Subm Dr: Ry [...] for Helicobacter pylori will be reported separately ([id number]). C. Alcian blue/PAS stain with matched control [...] Account Attending Physician PASTOR BARNETT 43/F EN [id number] Ry Tirado DO Gastric body biopsy. The [...] totally submitted in one cassette. 03/22/2024 TC:2 CPT:35294u3,71073 Patient Age/Sex Location Account Attending Physician PASTOR BARNETT 43/F EN [id number] Ry Tirado DO Signed (signature on file) Dr. Nirav Lea MD 03/23/24 1145 Normal [facility] Comment on above: Performed By: #### P SSI ####[facility] [address] [facility] [place], [address] Thyroid Stim Hormone (TSH)on 03-01-2024 TSH 1.720 uIU/mL Normal 0.358-3.740 [facility] Comment on above: Performed By: #### L 501.9520 ####[facility] [address] [facility] [place], [address] M7400.3302on 02-09-2024 M7400.3302 ___ TESTING PERFORMED AT [facility]. ORIGINAL REPORT ON FILE IN LAB CONTAINS ADDITIONAL TEST SITE INFORMATION. ___ Giardia Lamblia EIA NEGATIVE Normal [facility] Comment on above: Performed By: #### L 7000.0750, M600.5000, M7400.3302 #### [facility] [address] [facility] [place], [place], [address] Ova and Parasites 8623on OP OVA AND [...] NO OVA, CYSTS, OR PARASITES FOUND. Normal [facility] Comment on above: Performed By: #### L 7000.0750, M600.5000, M7400.3302 #### [facility] [address] [place], [place], [address] Gallbladderon 02-07-2024 Gallbladder [facility] Imaging Services [address] [place], [place] [address] Gallbladder MR#: [id number] Acct: [id number] Name: PASTOR BARNETT Rep #: [id number] : 1980 F 43 From: Manohar Dahl DO PCP: Jonnie Nieto PA-C Status: REG CLI Study: Gallbladder Date of Exam: 02/07/24 Exam# [id number] Ordering Dr: Dinorah Mcrae [id number] INDICATION: abdominal pain EXAMINATION: Ultrasound US Abdomen [...] EDT , CC: JESSICA Nieto; CRI[employer] Librarian: Signed [facility] Gastric Emptying Studyon Gastric Emptying Study [facility] Imaging Services [address] [place] [address] Gastric Emptying Study MR#: [id number] Acct: [id number] Name: PASTOR BARNETT Rep #: [id number] : 1980 F 43 From: Ravinder Srinivasan PCP: Jonnie Nieto PA-C Status: REG CLI Study: Gastric Emptying Study Date of Exam: 02/07/24 Exam# [id number] Ordering Dr: Dinorah Mcrae [id number] CLINICAL: 43-year-old female with history of chronic [...] EDT , CC: JESSICA Nieto; [employer] Librarian: Signed Normal [facility] L7000.0750on 02-04-2024 P ELASTASE,FECA > 800 Normal >200 [facility] Comment on above: Result Comment: Resu lt Units: ug Elast./g Severe Pancreatic Insufficiency: <100 Moderate Pancreatic Insufficiency: 100 - 200 Normal: >200 Performed at: [address] [id number] Joinery Machinist: Madonna Cardoza MD, Phone: [phone] Performed By: #### L 7000.0750, M600.5000, M7400.3302 #### [facility] [address] [place], [address] Calprotectin, Stoolon [address] 39 ug/g Normal 0-120 [facility] Comment on above: Order Comment: Test( s) 438991-Qekk, Neutral; 633236-Mpbh, Totalwas developed and its performance characteristicsdetermined by [facility]. It has not been cleared or approvedby the Food and Drug Administration. Result Comment: Conc entration Interpretation Follow-Up < 5 - 50 ug/g Normal None >50 -120 ug/g Borderline Re-evaluate in 4-6 weeks >120 ug/g Abnormal Repeat as clinically indicated Performed at: [address] [id number] Joinery Machinist: Roberto Nelson PhD, Phone: [phone] Performed at: [address] [id number] Joinery Machinist: Madonna Cardoza MD, Phone: [phone] Performed By: #### L 7000.0700, M100.0605, M100.637, L7000.0300 ####[facility] [address] [place], [address] Fecal Fat, Qualitativeon FATS, NEUTRAL Normal Normal . [facility] Comment on above: Order Comment: Test( s) 395769-Kqte, Neutral; 955081-Hnne, Totalwas developed and its performance characteristicsdetermined by [employer]. It has not been cleared or approvedby the Food and Drug Administration. Result Comment: Norm al (<60 Droplets/HPF) Performed By: #### L 7000.0700, M100.0605, M100.637, L7000.0300 ####[facility] [address] [place], [place], [id number] FATS, TOTAL Normal Normal . [facility] Comment on above: Order Comment: Test( s) 779174-Gzgi, Neutral; 017030-Bnfy, Totalwas developed and its performance characteristicsdetermined by [employer]. It has not been cleared or approvedby the Food and Drug Administration. Result Comment: Norm al (<100 Droplets/HPF) Performed By: #### L 7000.0700, M100.0605, M100.637, L7000.0300 ####[facility] [address] [place], [address] HIRO Comprehensive Panelon HIRO TABLE Comment Normal . [facility] Comment on above: Result Comment: Auto antibody [...] Sm (anti-Coker) SLE 15 - 30% --------- MACHINED PARTS METAL SPRAYER Mixed Connective Tissue Disease 95% (U1 nRNP, SLE 30 - 50% anti-ribonucleoprotein) Polymyositis and/or Dermatomyositis 20% --------- Scl-70 (antiDNA Scleroderma (diffuse) 20 - 35% topoisomerase) Crest 13% --------- Kasia-1 Polymyositis and/or Dermatomyositis 20 - 40% --------- Centromere B Scleroderma - Crest variant 80% Performed By: #### L 3100.5440, L800.1280, L5500.0550, L803.2200, L2100.0000, L101.9900, L3300.1200, L3100.6900, L3410.2400, L500.4050, L3100.3425, L100.0100, L501.6710, L3200.1100 ####[facility] [address] [facility] [place], [place], [id number] ANTI-CENT B AB <0.2 Normal 0.0-0.9 [facility] Comment on above: Performed By: #### L 3100.5440, L800.1280, L5500.0550, L803.2200, L2100.0000, L101.9900, L3300.1200, L3100.6900, L3410.2400, L500.4050, L3100.3425, L100.0100, L501.6710, L3200.1100 ####[facility] [address] [place], [place], [address] ANTI-DNA (DS)AB <1 Normal 0-9 [facility] Comment on above: Result Comment: Nega tive <5 Equivocal 5 - 9 Positive >9 Performed By: #### L 3100.5440, L800.1280, L5500.0550, L803.2200, L2100.0000, L101.9900, L3300.1200, L3100.6900, L3410.2400, L500.4050, L3100.3425, L100.0100, L501.6710, L3200.1100 ####[facility] [address] [place], [address] ANTI-KASIA-1 <0.2 Normal 0.0-0.9 [facility] Comment on above: Performed By: #### L 3100.5440, L800.1280, L5500.0550, L803.2200, L2100.0000, L101.9900, L3300.1200, L3100.6900, L3410.2400, L500.4050, L3100.3425, L100.0100, L501.6710, L3200.1100 ####[facility] [address] [place], [address] ANTI-SS-A < 0.2 Normal 0.0-0.9 [facility] Comment on above: Performed By: #### L 3100.5440, L800.1280, L5500.0550, L803.2200, L2100.0000, L101.9900, L3300.1200, L3100.6900, L3410.2400, L500.4050, L3100.3425, L100.0100, L501.6710, L3200.1100 ####[facility] [address] [place], [address] ANTI-SS-B < 0.2 Normal 0.0-0.9 [facility] Comment on above: Performed By: #### L 3100.5440, L800.1280, L5500.0550, L803.2200, L2100.0000, L101.9900, L3300.1200, L3100.6900, L3410.2400, L500.4050, L3100.3425, L100.0100, L501.6710, L3200.1100 ####[facility] [address] [place], [address] ANTICHROMATIN <0.2 Normal 0.0-0.9 [facility] Comment on above: Performed By: #### L 3100.5440, L800.1280, L5500.0550, L803.2200, L2100.0000, L101.9900, L3300.1200, L3100.6900, L3410.2400, L500.4050, L3100.3425, L100.0100, L501.6710, L3200.1100 ####[facility] [address] [place], [place], [address] ANTISCLERODERM <0.2 Normal 0.0-0.9 [facility] Comment on above: Performed By: #### L 3100.5440, L800.1280, L5500.0550, L803.2200, L2100.0000, L101.9900, L3300.1200, L3100.6900, L3410.2400, L500.4050, L3100.3425, L100.0100, L501.6710, L3200.1100 ####[facility] [address] [place], [place], [address] MACHINED PARTS METAL SPRAYER Ab <0.2 Normal 0.0-0.9 [facility] Comment on above: Performed By: #### L 3100.5440, L800.1280, L5500.0550, L803.2200, L2100.0000, L101.9900, L3300.1200, L3100.6900, L3410.2400, L500.4050, L3100.3425, L100.0100, L501.6710, L3200.1100 ####[facility] [address] [place], [place], [id number] COKER Ab <0.2 Normal 0.0-0.9 [facility] Comment on above: Performed By: #### L 3100.5440, L800.1280, L5500.0550, L803.2200, L2100.0000, L101.9900, L3300.1200, L3100.6900, L3410.2400, L500.4050, L3100.3425, L100.0100, L501.6710, L3200.1100 ####[facility] [address] [place], [place], [address] ANCAon 02-01-2024 Atypical pANCA <1:20 Normal Neg:<1:20 [facility] Comment on above: Order Comment: NUNK Result Comment: The atypical pANCA pattern has been observed in a significant percentage of patients with ulcerative colitis, primary sclerosing cholangitis and autoimmune hepatitis. Performed By: #### P H.PYLORI #### [facility] [address] [place], [place], [id number] Cytoplasmic Ab <1:20 Normal Neg:<1:20 [facility] Comment on above: Order Comment: NUNK Performed By: #### P H.PYLORI #### [facility] [address] [facility] [place], [place], [address] Perinuclear Ab. <1:20 Normal Neg:<1:20 [facility] Comment on above: Order Comment: NUNK Result Comment: The presence of positive fluorescence exhibiting P-ANCA or C-ANCA patterns alone is not specific for the diagnosis of Billy's Granulomatosis (WG) or microscopic polyangiitis. Decisions about treatment should not be based solely on ANCA IFA results. The International ANCA Group Consensus recommends follow up testing of positive sera with both NV- 3 and MPO-ANCA enzyme immunoassays. As many as 5% serum samples are positive only by EIA. Ref. AM J Clin Pathol 1999;111:507-513. Performed By: #### P H.PYLORI #### [facility] [address] [place], [place], [id number] Angiotensin Convert Enzymeon 02-01-2024 ANGIOT-CONV.ENZ 67 U/L Normal 14-82 [facility] Comment on above: Order Comment: NUNK Result Comment: Perf ormed at: [facility] [address] [id number] Joinery Machinist: Roberto Nelson PhD, Phone: [phone] Performed at: [facility] [address] [id number] Joinery Machinist: Madonna Cardoza MD, Phone: [phone] Performed By: #### P H.PYLORI #### [facility] [address] [place], [address] Anti-Mitochondrial ABon 09- ANTIMITOCHON AB 24.6 Units Abnormal 0.0-20.0 [facility] Comment on above: Result Comment: Nega tive 0.0 - 20.0 Equivocal 20.1 - 24.9 Positive >24.9 Mitochondrial (M2) Antibodies are found in 90-96% of patients with primary biliary cirrhosis. Performed By: #### L 3100.5440, L800.1280, L5500.0550, L803.2200, L2100.0000, L101.9900, L3300.1200, L3100.6900, L3410.2400, L500.4050, L3100.3425, L100.0100, L501.6710, L3200.1100 ####[facility] [address] [place], [address] Anti-Smooth Muscle ABSon ANTISMOOTH MUSC 3 Units Normal 0-19 [facility] Comment on above: Order Comment: NUNK Result [...] L3100.6900, L3410.2400, L500.4050, L3100.3425, L100.0100, L501.6710, L3200.1100 ####[facility] [address] [place], [address] Celiac Disease Profileon ENDOMYSIAL IGA Negative Normal Negative [facility] Comment on above: Order Comment: NUNK Performed By: #### P H.PYLORI #### [facility] [address] [place], [place], [id number] tTG IGA <2 Normal 0-3 [facility] Comment on above: Order Comment: NUNK Result Comment: Nega tive 0 - 3 Weak Positive 4 - 10 Positive >10 Tissue Transglutaminase (tTG) has been identified as the endomysial antigen. Studies have demonstr- ated that endomysial IgA antibodies have over 99% specificity for gluten sensitive enteropathy. Performed By: #### P H.PYLORI #### [facility] [address] [place], [place], [id number] MIYA + Protein Elect, Serumon 02-01-2024 Albumin [Mass/Vol] 3.5 g/dL Normal 2.9-4.4 [facility] Comment on above: Order Comment: NUNK Performed By: #### L 3100.5440, L800.1280, L5500.0550, L803.2200, L2100.0000, L101.9900, L3300.1200, L3100.6900, L3410.2400, L500.4050, L3100.3425, L100.0100, L501.6710, L3200.1100 ####[facility] [address] [place], [place], [id number] Albumin/Globulin [Mass ratio] 1.3 {ratio} Normal 0.7-1.7 [facility] Comment on above: Order Comment: NUNK Performed By: #### L 3100.5440, L800.1280, L5500.0550, L803.2200, L2100.0000, L101.9900, L3300.1200, L3100.6900, L3410.2400, L500.4050, L3100.3425, L100.0100, L501.6710, L3200.1100 ####[facility] [address] [place], [address] MTXMB-5-QRCH 0.2 g/dL Normal 0.0-0.4 [facility] Comment on above: Order Comment: NUNK Performed By: #### L 3100.5440, L800.1280, L5500.0550, L803.2200, L2100.0000, L101.9900, L3300.1200, L3100.6900, L3410.2400, L500.4050, L3100.3425, L100.0100, L501.6710, L3200.1100 ####[facility] [address] [place], [place], [phone]) XPJXQ-0-VSNZ 0.7 g/dL Normal 0.4-1.0 [facility] Comment on above: Order Comment: NUNK Performed By: #### L 3100.5440, L800.1280, L5500.0550, L803.2200, L2100.0000, L101.9900, L3300.1200, L3100.6900, L3410.2400, L500.4050, L3100.3425, L100.0100, L501.6710, L3200.1100 ####[facility] [address] [place], [address](197) BETA GLOBULIN 0.9 g/dL Normal 0.7-1.3 [facility] Comment on above: Order Comment: NUNK Performed By: #### L 3100.5440, L800.1280, L5500.0550, L803.2200, L2100.0000, L101.9900, L3300.1200, L3100.6900, L3410.2400, L500.4050, L3100.3425, L100.0100, L501.6710, L3200.1100 ####[facility] [address] [place], [place], [id number] GAMMA GLOBULIN 1.0 g/dL Normal 0.4-1.8 [facility] Comment on above: Order Comment: NUNK Performed By: #### L 3100.5440, L800.1280, L5500.0550, L803.2200, L2100.0000, L101.9900, L3300.1200, L3100.6900, L3410.2400, L500.4050, L3100.3425, L100.0100, L501.6710, L3200.1100 ####[facility] [address] [place], [address] Globulin (S) [Mass/Vol] 2.8 g/dL Normal 2.2-3.9 [facility] Comment on above: Order Comment: NUNK Performed By: #### L 3100.5440, L800.1280, L5500.0550, L803.2200, L2100.0000, L101.9900, L3300.1200, L3100.6900, L3410.2400, L500.4050, L3100.3425, L100.0100, L501.6710, L3200.1100 ####[facility] [address] [place], [address] MIYA RESULT,S Comment Normal . [facility] Comment on above: Order Comment: NUNK Result Comment: No m onoclonality detected. Performed By: #### L 3100.5440, L800.1280, L5500.0550, L803.2200, L2100.0000, L101.9900, L3300.1200, L3100.6900, L3410.2400, L500.4050, L3100.3425, L100.0100, L501.6710, L3200.1100 ####[facility] [address] [place], [place], [address] IMMUNOGLOB A QN 137 mg/dL Normal 87-352 [facility] Comment on above: Order Comment: NUNK Performed By: #### L 3100.5440, L800.1280, L5500.0550, L803.2200, L2100.0000, L101.9900, L3300.1200, L3100.6900, L3410.2400, L500.4050, L3100.3425, L100.0100, L501.6710, L3200.1100 ####[facility] [address] [place], [address] IMMUNOGLOB G QN 853 mg/dL Normal 586-1602 [facility] Comment on above: Order Comment: NUNK Performed By: #### L 3100.5440, L800.1280, L5500.0550, L803.2200, L2100.0000, L101.9900, L3300.1200, L3100.6900, L3410.2400, L500.4050, L3100.3425, L100.0100, L501.6710, L3200.1100 ####[facility] [address] [place], [address] IMMUNOGLOB M QN 183 mg/dL Normal 26-217 [facility] Comment on above: Order Comment: NUNK Performed By: #### L 3100.5440, L800.1280, L5500.0550, L803.2200, L2100.0000, L101.9900, L3300.1200, L3100.6900, L3410.2400, L500.4050, L3100.3425, L100.0100, L501.6710, L3200.1100 ####[facility] [address] [place], [address] M-Mike Not Observed Normal Not Observed [facility] Comment on above: Order Comment: NUNK Performed By: #### L 3100.5440, L800.1280, L5500.0550, L803.2200, L2100.0000, L101.9900, L3300.1200, L3100.6900, L3410.2400, L500.4050, L3100.3425, L100.0100, L501.6710, L3200.1100 ####[facility] [address] [place], [place], [address] NOTE: Comment Normal . [facility] Comment on above: Order Comment: NUNK Result Comment: Prot ein electrophoresis scan will follow via computer, mail, or logging assistant delivery. Performed By: #### L 3100.5440, L800.1280, L5500.0550, L803.2200, L2100.0000, L101.9900, L3300.1200, L3100.6900, L3410.2400, L500.4050, L3100.3425, L100.0100, L501.6710, L3200.1100 ####[facility] [address] [place], [place], [id number] Protein [Mass/Vol] 6.3 g/dL Normal 6.0-8.5 [facility] Comment on above: Order Comment: NUNK Performed By: #### L 3100.5440, L800.1280, L5500.0550, L803.2200, L2100.0000, L101.9900, L3300.1200, L3100.6900, L3410.2400, L500.4050, L3100.3425, L100.0100, L501.6710, L3200.1100 ####[facility] [address] [place], [place], [id number] Immunoglobulins G/A/M/Anthony IMMUNOGLOB E QN 32 IU/mL Normal 6-495 [facility] Comment on above: Order Comment: NUNK Performed By: #### P H.PYLORI #### [facility] [address] [place], [place], [id number] L2100.0000on 02-01-2024 ACCA 18 units Normal 0-90 [facility] Comment on above: Order Comment: NUNK Result Comment: Nega tive: <80 Equivocal: 80-90 Positive: >90 Performed By: #### L 3100.5440, L800.1280, L5500.0550, L803.2200, L2100.0000, L101.9900, L3300.1200, L3100.6900, L3410.2400, L500.4050, L3100.3425, L100.0100, L501.6710, L3200.1100 ####[facility] [address] [place], [place], [id number] ALCA 1 units Normal 0-60 [facility] Comment on above: Order Comment: NUNK Result Comment: Nega tive:<55 Equivocal: 55-60 Positive: >60 Performed By: #### L 3100.5440, L800.1280, L5500.0550, L803.2200, L2100.0000, L101.9900, L3300.1200, L3100.6900, L3410.2400, L500.4050, L3100.3425, L100.0100, L501.6710, L3200.1100 ####[facility] [address] [place], [address] AMCA 47 units Normal 0-100 [facility] Comment on above: Order Comment: NUNK Result Comment: Nega tive: <90 Equivocal: 90-100 Positive: >100 This test was developed and its performance characteristics determined by [employer]. It has not been cleared or approved by the Food and Drug Administration. The FDA has determined that such clearance or approval is not necessary. Performed By: #### L 3100.5440, L800.1280, L5500.0550, L803.2200, L2100.0000, L101.9900, L3300.1200, L3100.6900, L3410.2400, L500.4050, L3100.3425, L100.0100, L501.6710, L3200.1100 ####[facility] [address] [place], [address] Atypical pANCA Negative Normal Negative [facility] Comment on above: Order Comment: NUNK Performed By: #### L 3100.5440, L800.1280, L5500.0550, L803.2200, L2100.0000, L101.9900, L3300.1200, L3100.6900, L3410.2400, L500.4050, L3100.3425, L100.0100, L501.6710, L3200.1100 ####[facility] [address] [place], [place], [id number] COMMENT Comment Normal . [facility] Comment on above: Order Comment: NUNK Result Comment: Majo muna is not suggestive of Inflammatory Bowel Disease Performed By: #### L 3100.5440, L800.1280, L5500.0550, L803.2200, L2100.0000, L101.9900, L3300.1200, L3100.6900, L3410.2400, L500.4050, L3100.3425, L100.0100, L501.6710, L3200.1100 ####[facility] [address] [place], [address] Tanya 3 units Normal 0-50 [facility] Comment on above: Order Comment: NUNK Result Comment: Nega tive: <45 Equivocal: 45-50 Positive: >50 Performed By: #### L 3100.5440, L800.1280, L5500.0550, L803.2200, L2100.0000, L101.9900, L3300.1200, L3100.6900, L3410.2400, L500.4050, L3100.3425, L100.0100, L501.6710, L3200.1100 ####[facility] [address] [place], [place], [id number] L5500.0550on 02-01-2024 BEEF <0.10 Normal Class 0 [facility] Comment on above: Performed By: #### L 3100.5440, L800.1280, L5500.0550, L803.2200, L2100.0000, L101.9900, L3300.1200, L3100.6900, L3410.2400, L500.4050, L3100.3425, L100.0100, L501.6710, L3200.1100 ####[facility] [address] [place], [place], [id number] CHOCOLATE <0.10 Normal Class 0 [facility] Comment on above: Performed By: #### L 3100.5440, L800.1280, L5500.0550, L803.2200, L2100.0000, L101.9900, L3300.1200, L3100.6900, L3410.2400, L500.4050, L3100.3425, L100.0100, L501.6710, L3200.1100 ####[facility] [address] [place], [place], [id number] CODFISH <0.10 Normal Class 0 [facility] Comment on above: Performed By: #### L 3100.5440, L800.1280, L5500.0550, L803.2200, L2100.0000, L101.9900, L3300.1200, L3100.6900, L3410.2400, L500.4050, L3100.3425, L100.0100, L501.6710, L3200.1100 ####[facility] [address] [place], [place], [address] COMMENT Comment Normal . [facility] Comment on above: Result Comment: Sunshine lang [...] L3100.6900, L3410.2400, L500.4050, L3100.3425, L100.0100, L501.6710, L3200.1100 ####[facility] [address] [place], [place], [address] CORN <0.10 Normal Class 0 [facility] Comment on above: Performed By: #### L 3100.5440, L800.1280, L5500.0550, L803.2200, L2100.0000, L101.9900, L3300.1200, L3100.6900, L3410.2400, L500.4050, L3100.3425, L100.0100, L501.6710, L3200.1100 ####[facility] [address] [place], [address] EGG, WHOLE <0.10 Normal Class 0 [facility] Comment on above: Result Comment: Perf ormed at: [facility] [address] [id number] Joinery Machinist: Roberto Nelson PhD, Phone: [phone] Performed at: [facility] [address] [id number] Joinery Machinist: Madonna Cardoza MD, Phone: [phone] Performed By: #### L 3100.5440, L800.1280, L5500.0550, L803.2200, L2100.0000, L101.9900, L3300.1200, L3100.6900, L3410.2400, L500.4050, L3100.3425, L100.0100, L501.6710, L3200.1100 ####[facility] [address] [place], [address] MILK (COW) <0.10 Normal Class 0 [facility] Comment on above: Performed By: #### L 3100.5440, L800.1280, L5500.0550, L803.2200, L2100.0000, L101.9900, L3300.1200, L3100.6900, L3410.2400, L500.4050, L3100.3425, L100.0100, L501.6710, L3200.1100 ####[facility] [address] [place], [place], [phone] MUSSELS <0.10 Normal Class 0 [facility] Comment on above: Performed By: #### L 3100.5440, L800.1280, L5500.0550, L803.2200, L2100.0000, L101.9900, L3300.1200, L3100.6900, L3410.2400, L500.4050, L3100.3425, L100.0100, L501.6710, L3200.1100 ####[facility] [address] [place], [address] PEANUT <0.10 Normal Class 0 [facility] Comment on above: Performed By: #### L 3100.5440, L800.1280, L5500.0550, L803.2200, L2100.0000, L101.9900, L3300.1200, L3100.6900, L3410.2400, L500.4050, L3100.3425, L100.0100, L501.6710, L3200.1100 ####[facility] [address] [place], [place], [id number] PORK <0.10 Normal Class 0 [facility] Comment on above: Performed By: #### L 3100.5440, L800.1280, L5500.0550, L803.2200, L2100.0000, L101.9900, L3300.1200, L3100.6900, L3410.2400, L500.4050, L3100.3425, L100.0100, L501.6710, L3200.1100 ####[facility] [address] [place], [address] SALMON <0.10 Normal Class 0 [facility] Comment on above: Performed By: #### L 3100.5440, L800.1280, L5500.0550, L803.2200, L2100.0000, L101.9900, L3300.1200, L3100.6900, L3410.2400, L500.4050, L3100.3425, L100.0100, L501.6710, L3200.1100 ####[facility] [address] [place], [place], [id number] SHRIMP <0.10 Normal Class 0 [facility] Comment on above: Performed By: #### L 3100.5440, L800.1280, L5500.0550, L803.2200, L2100.0000, L101.9900, L3300.1200, L3100.6900, L3410.2400, L500.4050, L3100.3425, L100.0100, L501.6710, L3200.1100 ####[facility] [address] [place], [place], [id number] SOYBEAN <0.10 Normal Class 0 [facility] Comment on above: Performed By: #### L 3100.5440, L800.1280, L5500.0550, L803.2200, L2100.0000, L101.9900, L3300.1200, L3100.6900, L3410.2400, L500.4050, L3100.3425, L100.0100, L501.6710, L3200.1100 ####[facility] [address] [place], [address] TUNA <0.10 Normal Class 0 [facility] Comment on above: Performed By: #### L 3100.5440, L800.1280, L5500.0550, L803.2200, L2100.0000, L101.9900, L3300.1200, L3100.6900, L3410.2400, L500.4050, L3100.3425, L100.0100, L501.6710, L3200.1100 ####[facility] [address] [place], [address] WHEAT <0.10 Normal Class 0 [facility] Comment on above: Performed By: #### L 3100.5440, L800.1280, L5500.0550, L803.2200, L2100.0000, L101.9900, L3300.1200, L3100.6900, L3410.2400, L500.4050, L3100.3425, L100.0100, L501.6710, L3200.1100 ####[facility] [address] [facility] [place], [address] ENTERIC PATHOGEN PANEL STOOL on 01-26-2024 EP [...] VIBRIO Not Detected Yersinia Not Detected Normal [facility] Comment on above: Performed By: #### L 7000.0700, M100.0605, M100.637, L7000.0300 ####[facility] [address] [place], [address] Stool Lactoferrin/WBCon 12-29 WBCST Normal Reference Ran ge = Negative Fecal WBC Lactoferrin Negative: No Fecal WBC Lactoferrin present Normal [facility] Comment on above: Performed By: #### L 7000.0700, M100.0605, M100.637, L7000.0300 ####[facility] [address] [place], [address] CBC W/Diff, Automatedon 08-2 Absolute Lymph 2.10 X10 3/uL Normal 0.83-4.51 [facility] Comment on above: Performed By: #### L 3100.5440, L800.1280, L5500.0550, L803.2200, L2100.0000, L101.9900, L3300.1200, L3100.6900, L3410.2400, L500.4050, L3100.3425, L100.0100, L501.6710, L3200.1100 ####[facility] [address] [place], [address] Absolute Neut 3.5 X10 3/uL Normal 2.0-7.7 [facility] Comment on above: Performed By: #### L 3100.5440, L800.1280, L5500.0550, L803.2200, L2100.0000, L101.9900, L3300.1200, L3100.6900, L3410.2400, L500.4050, L3100.3425, L100.0100, L501.6710, L3200.1100 ####[facility] [address] [place], [address] Basophils/100 WBC (Bld) 0.3 % Normal 0-1 [facility] Comment on above: Performed By: #### L 3100.5440, L800.1280, L5500.0550, L803.2200, L2100.0000, L101.9900, L3300.1200, L3100.6900, L3410.2400, L500.4050, L3100.3425, L100.0100, L501.6710, L3200.1100 ####[facility] [address] [place], [address] Eosinophils/100 WBC (Bld) 1.5 % Normal 0-5 [facility] Comment on above: Performed By: #### L 3100.5440, L800.1280, L5500.0550, L803.2200, L2100.0000, L101.9900, L3300.1200, L3100.6900, L3410.2400, L500.4050, L3100.3425, L100.0100, L501.6710, L3200.1100 ####[facility] [address] [place], [place], [address] Erythrocyte distribution width (RBC) [Ratio] 12.0 % Normal 11.6-14.6 [facility] Comment on above: Performed By: #### L 3100.5440, L800.1280, L5500.0550, L803.2200, L2100.0000, L101.9900, L3300.1200, L3100.6900, L3410.2400, L500.4050, L3100.3425, L100.0100, L501.6710, L3200.1100 ####[facility] [address] [facility] [place], [address] Hematocrit (Bld) [Volume fraction] 39.0 % Normal 37-47 [facility] Comment on above: Performed By: #### L 3100.5440, L800.1280, L5500.0550, L803.2200, L2100.0000, L101.9900, L3300.1200, L3100.6900, L3410.2400, L500.4050, L3100.3425, L100.0100, L501.6710, L3200.1100 ####[facility] [address] [facility] [place], [address] Hemoglobin (Bld) [Mass/Vol] 13.0 g/dL Normal 12.0-15.0 [facility] Comment on above: Performed By: #### L 3100.5440, L800.1280, L5500.0550, L803.2200, L2100.0000, L101.9900, L3300.1200, L3100.6900, L3410.2400, L500.4050, L3100.3425, L100.0100, L501.6710, L3200.1100 ####[facility] [address] [place], [address] IG% 0.300 Normal 0.0-0.9 [facility] Comment on above: Result Comment: IG% - Immature Granulocytes (promyelocytes, myelocytes and metamyelocytes) > 1% indicates that a LEFT SHIFT is Present. Performed By: #### L 3100.5440, L800.1280, L5500.0550, L803.2200, L2100.0000, L101.9900, L3300.1200, L3100.6900, L3410.2400, L500.4050, L3100.3425, L100.0100, L501.6710, L3200.1100 ####[facility] [address] [place], [address] Lymphocytes/100 WBC (Bld) 34.3 % Normal 19-41 [facility] Comment on above: Performed By: #### L 3100.5440, L800.1280, L5500.0550, L803.2200, L2100.0000, L101.9900, L3300.1200, L3100.6900, L3410.2400, L500.4050, L3100.3425, L100.0100, L501.6710, L3200.1100 ####[facility] [address] [place], [place], [id number] MCH (RBC) [Entitic mass] 30.2 pg Normal 27.0-32.0 [facility] Comment on above: Performed By: #### L 3100.5440, L800.1280, L5500.0550, L803.2200, L2100.0000, L101.9900, L3300.1200, L3100.6900, L3410.2400, L500.4050, L3100.3425, L100.0100, L501.6710, L3200.1100 ####[facility] [address] [place], [address] MCHC (RBC) [Mass/Vol] 33.3 g/dL Normal 32-36 [facility] Comment on above: Performed By: #### L 3100.5440, L800.1280, L5500.0550, L803.2200, L2100.0000, L101.9900, L3300.1200, L3100.6900, L3410.2400, L500.4050, L3100.3425, L100.0100, L501.6710, L3200.1100 ####[facility] [address] [place], [address] MCV (RBC) [Entitic vol] 90.5 fL Normal 81-99 [facility] Comment on above: Performed By: #### L 3100.5440, L800.1280, L5500.0550, L803.2200, L2100.0000, L101.9900, L3300.1200, L3100.6900, L3410.2400, L500.4050, L3100.3425, L100.0100, L501.6710, L3200.1100 ####[facility] [address] [place], [address] Monocytes/100 WBC (Bld) 6.7 % Normal 0-10 [facility] Comment on above: Performed By: #### L 3100.5440, L800.1280, L5500.0550, L803.2200, L2100.0000, L101.9900, L3300.1200, L3100.6900, L3410.2400, L500.4050, L3100.3425, L100.0100, L501.6710, L3200.1100 ####[facility] [address] [place], [address] Neutrophils/100 WBC (Bld) 56.9 % Normal 47-70 [facility] Comment on above: Performed By: #### L 3100.5440, L800.1280, L5500.0550, L803.2200, L2100.0000, L101.9900, L3300.1200, L3100.6900, L3410.2400, L500.4050, L3100.3425, L100.0100, L501.6710, L3200.1100 ####[facility] [address] [place], [place], [phone] Nucleated RBC (Bld) [#/Vol] 0 10*3/uL Normal 0-5 [facility] Comment on above: Performed By: #### L 3100.5440, L800.1280, L5500.0550, L803.2200, L2100.0000, L101.9900, L3300.1200, L3100.6900, L3410.2400, L500.4050, L3100.3425, L100.0100, L501.6710, L3200.1100 ####[facility] [address] [facility] [place], [place], [phone] Platelet mean volume (Bld) [Entitic vol] 9.4 fL Normal 6.2-12.0 [facility] Comment on above: Performed By: #### L 3100.5440, L800.1280, L5500.0550, L803.2200, L2100.0000, L101.9900, L3300.1200, L3100.6900, L3410.2400, L500.4050, L3100.3425, L100.0100, L501.6710, L3200.1100 ####[facility] [address] [place], [place], [phone](225) Platelets (Bld) [#/Vol] 320 10*3/uL Normal 150-450 [facility] Comment on above: Performed By: #### L 3100.5440, L800.1280, L5500.0550, L803.2200, L2100.0000, L101.9900, L3300.1200, L3100.6900, L3410.2400, L500.4050, L3100.3425, L100.0100, L501.6710, L3200.1100 ####[facility] [address] [place], [place], [phone] RBC (Bld) [#/Vol] 4.31 10*6/uL Normal 4.2-5.4 [facility] Comment on above: Performed By: #### L 3100.5440, L800.1280, L5500.0550, L803.2200, L2100.0000, L101.9900, L3300.1200, L3100.6900, L3410.2400, L500.4050, L3100.3425, L100.0100, L501.6710, L3200.1100 ####[facility] [address] [place], [place], [phone](066) RDW SD 40.0 fl Normal 35.1-43.9 [facility] Comment on above: Performed By: #### L 3100.5440, L800.1280, L5500.0550, L803.2200, L2100.0000, L101.9900, L3300.1200, L3100.6900, L3410.2400, L500.4050, L3100.3425, L100.0100, L501.6710, L3200.1100 ####[facility] [address] [place], [place], [phone] WBC (Bld) [#/Vol] 6.1 10*3/uL Normal 4.4-11.0 [facility] Comment on above: Performed By: #### L 3100.5440, L800.1280, L5500.0550, L803.2200, L2100.0000, L101.9900, L3300.1200, L3100.6900, L3410.2400, L500.4050, L3100.3425, L100.0100, L501.6710, L3200.1100 ####[facility] [address] [place], [place], [phone] CRPon 01-25-2024 C-REACTIVE PROT < 2.90 Normal 0.0-3.0 [facility] Comment on above: Order Comment: UNK Result Comment: C-Re active Protein (CRP) provides useful information for the diagnosis, therapy and monitoring of inflammatory processes and associated diseases. For the evaluation of Relative Risk for Cardiovascular Disease, a High Sensitivity CRP (HSCRP) should be ordered. Performed By: #### L 3100.5440, L800.1280, L5500.0550, L803.2200, L2100.0000, L101.9900, L3300.1200, L3100.6900, L3410.2400, L500.4050, L3100.3425, L100.0100, L501.6710, L3200.1100 ####[facility] [address] [facility] [place], [address] Comprehensive Metabolic Prof ilon 01-25-2024 Albumin [Mass/Vol] 3.6 g/dL Normal 3.2-5.0 [facility] Comment on above: Order Comment: UNK Performed By: #### L 3100.5440, L800.1280, L5500.0550, L803.2200, L2100.0000, L101.9900, L3300.1200, L3100.6900, L3410.2400, L500.4050, L3100.3425, L100.0100, L501.6710, L3200.1100 ####[facility] [address] [facility] [place], [place], [phone] Albumin/Globulin [Mass ratio] 1.1 {ratio} Normal 0.9-2.4 [facility] Comment on above: Order Comment: UNK Performed By: #### L 3100.5440, L800.1280, L5500.0550, L803.2200, L2100.0000, L101.9900, L3300.1200, L3100.6900, L3410.2400, L500.4050, L3100.3425, L100.0100, L501.6710, L3200.1100 ####[facility] [address] [place], [place], [id number] ALK P 50 U/L Normal 45-117 [facility] Comment on above: Order Comment: UNK Performed By: #### L 3100.5440, L800.1280, L5500.0550, L803.2200, L2100.0000, L101.9900, L3300.1200, L3100.6900, L3410.2400, L500.4050, L3100.3425, L100.0100, L501.6710, L3200.1100 ####[facility] [address] [place], [place], [phone] ALT [Catalytic activity/Vol] 20 U/L Normal 13-56 [facility] Comment on above: Order Comment: UNK Performed By: #### L 3100.5440, L800.1280, L5500.0550, L803.2200, L2100.0000, L101.9900, L3300.1200, L3100.6900, L3410.2400, L500.4050, L3100.3425, L100.0100, L501.6710, L3200.1100 ####[facility] [address] [place], [place], [phone] AST [Catalytic activity/Vol] 19 U/L Normal 15-37 [facility] Comment on above: Order Comment: UNK Performed By: #### L 3100.5440, L800.1280, L5500.0550, L803.2200, L2100.0000, L101.9900, L3300.1200, L3100.6900, L3410.2400, L500.4050, L3100.3425, L100.0100, L501.6710, L3200.1100 ####[facility] [address] [place], [address] Bilirubin [Mass/Vol] 0.60 mg/dL Normal 0.20-1.00 [facility] Comment on above: Order Comment: UNK Result Comment: For patients on eltrombopag therapy, use of Dimension [place] TBIL is not recommended. Performed By: #### L 3100.5440, L800.1280, L5500.0550, L803.2200, L2100.0000, L101.9900, L3300.1200, L3100.6900, L3410.2400, L500.4050, L3100.3425, L100.0100, L501.6710, L3200.1100 ####[facility] [address] [place], [place], [phone]) BUN/CRE 8.4 RATIO Low 10-20 [facility] Comment on above: Order Comment: UNK Performed By: #### L 3100.5440, L800.1280, L5500.0550, L803.2200, L2100.0000, L101.9900, L3300.1200, L3100.6900, L3410.2400, L500.4050, L3100.3425, L100.0100, L501.6710, L3200.1100 ####[facility] [address] [place], [place], [phone] CA,Total 8.6 mg/dL Normal 8.5-10.1 [facility] Comment on above: Order Comment: UNK Performed By: #### L 3100.5440, L800.1280, L5500.0550, L803.2200, L2100.0000, L101.9900, L3300.1200, L3100.6900, L3410.2400, L500.4050, L3100.3425, L100.0100, L501.6710, L3200.1100 ####[facility] [address] [place], [place], [phone](780) Chloride [Moles/Vol] 109 mmol/L High 98-107 [facility] Comment on above: Order Comment: UNK Performed By: #### L 3100.5440, L800.1280, L5500.0550, L803.2200, L2100.0000, L101.9900, L3300.1200, L3100.6900, L3410.2400, L500.4050, L3100.3425, L100.0100, L501.6710, L3200.1100 ####[facility] [address] [place], [place], [phone](087) CO2 [Moles/Vol] 25.0 mmol/L Normal 21.0-32.0 [facility] Comment on above: Order Comment: UNK Performed By: #### L 3100.5440, L800.1280, L5500.0550, L803.2200, L2100.0000, L101.9900, L3300.1200, L3100.6900, L3410.2400, L500.4050, L3100.3425, L100.0100, L501.6710, L3200.1100 ####[facility] [address] [place], [place], [phone](055) Creatinine [Mass/Vol] 0.83 mg/dL Normal 0.55-1.02 [facility] Comment on above: Order Comment: UNK Result Comment: The validity of the calculated GFR GFRAA in patients over 70 years has not been determined. Clinical correlation is essential. Performed By: #### L 3100.5440, L800.1280, L5500.0550, L803.2200, L2100.0000, L101.9900, L3300.1200, L3100.6900, L3410.2400, L500.4050, L3100.3425, L100.0100, L501.6710, L3200.1100 ####[facility] [address] [place], [place], [phone](164) EST GFR - AA 96 mL/min Normal >60 [facility] Comment on above: Order Comment: UNK Result Comment: Afri can Micronesian GFR Calc Performed By: #### L 3100.5440, L800.1280, L5500.0550, L803.2200, L2100.0000, L101.9900, L3300.1200, L3100.6900, L3410.2400, L500.4050, L3100.3425, L100.0100, L501.6710, L3200.1100 ####[facility] [address] [place], [place], [phone] GAP 5 Normal 5-15 [facility] Comment on above: Order Comment: UNK Performed By: #### L 3100.5440, L800.1280, L5500.0550, L803.2200, L2100.0000, L101.9900, L3300.1200, L3100.6900, L3410.2400, L500.4050, L3100.3425, L100.0100, L501.6710, L3200.1100 ####[facility] [address] [place], [address] GFR/1.73 sq M.predicted among non-blacks MDRD (S/P/Bld) [Vol rate/Area] 80 mL/min/{1.73_m2} Normal >60 [facility] Comment on above: Order Comment: UNK Result Comment: Non- GFR Calc Performed By: #### L 3100.5440, L800.1280, L5500.0550, L803.2200, L2100.0000, L101.9900, L3300.1200, L3100.6900, L3410.2400, L500.4050, L3100.3425, L100.0100, L501.6710, L3200.1100 ####[facility] [address] [place], [address] Globulin (S) [Mass/Vol] 3.3 g/dL Normal 2.2-4.2 [facility] Comment on above: Order Comment: UNK Performed By: #### L 3100.5440, L800.1280, L5500.0550, L803.2200, L2100.0000, L101.9900, L3300.1200, L3100.6900, L3410.2400, L500.4050, L3100.3425, L100.0100, L501.6710, L3200.1100 ####[facility] [address] [place], [place], [phone](636) Glucose [Mass/Vol] 73 mg/dL Low 74-106 [facility] Comment on above: Order Comment: UNK Performed By: #### L 3100.5440, L800.1280, L5500.0550, L803.2200, L2100.0000, L101.9900, L3300.1200, L3100.6900, L3410.2400, L500.4050, L3100.3425, L100.0100, L501.6710, L3200.1100 ####[facility] [address] [facility] [place], [place], [phone]) Potassium [Moles/Vol] 3.6 mmol/L Normal 3.5-5.1 [facility] Comment on above: Order Comment: UNK Performed By: #### L 3100.5440, L800.1280, L5500.0550, L803.2200, L2100.0000, L101.9900, L3300.1200, L3100.6900, L3410.2400, L500.4050, L3100.3425, L100.0100, L501.6710, L3200.1100 ####[facility] [address] [place], [place], [phone]) Sodium [Moles/Vol] 139 mmol/L Normal 136-145 [facility] Comment on above: Order Comment: UNK Performed By: #### L 3100.5440, L800.1280, L5500.0550, L803.2200, L2100.0000, L101.9900, L3300.1200, L3100.6900, L3410.2400, L500.4050, L3100.3425, L100.0100, L501.6710, L3200.1100 ####[facility] [address] [place], [place], [phone] T PROT 6.9 g/dL Normal 6.4-8.2 [facility] Comment on above: Order Comment: UNK Performed By: #### L 3100.5440, L800.1280, L5500.0550, L803.2200, L2100.0000, L101.9900, L3300.1200, L3100.6900, L3410.2400, L500.4050, L3100.3425, L100.0100, L501.6710, L3200.1100 ####[facility] [address] [place], [place], [phone] Urea nitrogen [Mass/Vol] 7 mg/dL Normal 7-18 [facility] Comment on above: Order Comment: UNK Performed By: #### L 3100.5440, L800.1280, L5500.0550, L803.2200, L2100.0000, L101.9900, L3300.1200, L3100.6900, L3410.2400, L500.4050, L3100.3425, L100.0100, L501.6710, L3200.1100 ####[facility] [address] [place], [place], [phone] Erythrocyte Sed Rateon 01-24 SED RATE < 1 Normal 0-30 [facility] Comment on above: Performed By: #### L 3100.5440, L800.1280, L5500.0550, L803.2200, L2100.0000, L101.9900, L3300.1200, L3100.6900, L3410.2400, L500.4050, L3100.3425, L100.0100, L501.6710, L3200.1100 ####[facility] [address] [place], [address] Gastroenterology Visit Repor ton 01-25-2024 Gastroenterology Visit Report [facility] [address] [place] [address] OFFICE VISIT Date of Service: 01/25/24 MR#: [id number] Acct: [id number] Name: PASTOR BARNETT Rep #: [id number] : 1980 Provider: CRISTOFER Galvez Age/Sex: 43/F Location: [facility] Status: Signed Intake Intake Visit Reasons: Diarrhea [...] Appearance: average body habitus and well nourished [facility] Head: normal to inspection Ears: hearing [...] Patient is here today for establishment with [facility]. She has an extensive hx of [...] to get (more content not included)... [facility] HIP, UNI W/ Pelvis 2-3 Views on 01-25-2024 HIP, UNI W/ Pelvis 2-3 Views [facility] Imaging Services [address] [place], [place] [address] HIP, UNI W/ Pelvis 2-3 Views MR#: [id number] Acct: [id number] Name: PASTOR BARNETT Rep #: [id number] : 1980 F 43 From: Manohar Dahl DO PCP: Jonnie Nieto PA-C Status: REG CLI Study: HIP, UNI W/ Pelvis 2-3 Views Date of Exam: Exam# [id number] Ordering Dr: Jonnie Nieto [id number] INDICATION: BACK PAIN WITH RADICULOPATHY EXAMINATION/TECHNIQUE: X-RAY [...] 19:51 EDT Reading Location ID and State: [facility] / [place] Tel [phone], Service support , CC: [employer] Librarian: Signed Normal [facility] L/S Spine Min 4 Views12-29 L/S Spine Min 4 Views [facility] Imaging Services [address] [place] [address] L/S Spine Min 4 Views MR#: [id number] Acct: [id number] Name: PASTOR BARNETT Rep #: [id number] : 1980 F 43 From: Manohar Dahl DO PCP: Jonnie Nieto PA-C Status: REG CLI Study: L/S Spine Min 4 Views Date of Exam: 01/25/24 Exam# [id number] Ordering Dr: Jonnie Nieto [id number] STUDY: X-RAY - LUMBAR SPINE REASON FOR [...] ID and State: [place] / [place] Tel [phone], Service support , CC: [employer] Librarian: Signed Normal [facility] SCRN MAMM (CAD)W/LUKAS [place] n 01-25-2024 SCRN MAMM (CAD)W/LUKAS BILAT [facility] Imaging Services [address] [place] [address] SCRN MAMM (CAD)W/LUKASZarina NATIONAT MR#: [id number] Acct: [id number] Name: PASTOR BARNETT Rep #: [id number] : 1980 F 43 From: José Antonio de la garza MD PCP: Jonnie Nieto PA-C Status: REG CLI Study: SCRN MAMM (CAD)W/LUKAS BILAT Date of Exam: 12/29 01/20 Exam# [id number] Ordering Dr: Jonnie Nieto [id number] MAMMOGRAPHY - BILATERAL SCREENING REASON FOR EXAM: [...] delay biopsy of a clinically suspicious abnormality. [id number] Electronically Signed: José Antonio Palacios MD at 8:44 EDT , CC: [employer] Librarian: Signed Normal [facility] CBC, Employeeon 01-05-2024 Absolute Lymph 1.94 X10 3/uL Normal 0.83-4.51 [facility] Comment on above: Performed By: #### L 100.0200, L400.0100, L500.2900 #### [facility] [address] [place], [address] Absolute Neut 4.9 X10 3/uL Normal 2.0-7.7 [facility] Comment on above: Performed By: #### L 100.0200, L400.0100, L500.2900 #### [facility] [address] [place], [address] Basophils/100 WBC (Bld) 0.1 % Normal 0-1 [facility] Comment on above: Performed By: #### L 100.0200, L400.0100, L500.2900 #### [facility] [address] [place], [address] Eosinophils/100 WBC (Bld) 0.4 % Normal 0-5 [facility] Comment on above: Performed By: #### L 100.0200, L400.0100, L500.2900 #### [facility] [address] [place], [address] Erythrocyte distribution width (RBC) [Ratio] 12.3 % Normal 11.6-14.6 [facility] Comment on above: Performed By: #### L 100.0200, L400.0100, L500.2900 #### [facility] [address] [place], [address] Hematocrit (Bld) [Volume fraction] 39.8 % Normal 37-47 [facility] Comment on above: Performed By: #### L 100.0200, L400.0100, L500.2900 #### [facility] [address] [place], [address] Hemoglobin (Bld) [Mass/Vol] 12.9 g/dL Normal 12.0-15.0 [facility] Comment on above: Performed By: #### L 100.0200, L400.0100, L500.2900 #### [facility] [address] [place], [address] Lymphocytes/100 WBC (Bld) 26.3 % Normal 19-41 [facility] Comment on above: Performed By: #### L 100.0200, L400.0100, L500.2900 #### [facility] [address] [place], [address] MCH (RBC) [Entitic mass] 30.0 pg Normal 27.0-32.0 [facility] Comment on above: Performed By: #### L 100.0200, L400.0100, L500.2900 #### [facility] [address] [place], [address] MCHC (RBC) [Mass/Vol] 32.4 g/dL Normal 32-36 [facility] Comment on above: Performed By: #### L 100.0200, L400.0100, L500.2900 #### [facility] [address] [place], [address] MCV (RBC) [Entitic vol] 92.6 fL Normal 81-99 [facility] Comment on above: Performed By: #### L 100.0200, L400.0100, L500.2900 #### [facility] [address] [place], [address] Monocytes/100 WBC (Bld) 6.9 % Normal 0-10 [facility] Comment on above: Performed By: #### L 100.0200, L400.0100, L500.2900 #### [facility] [address] [place], [address] Neutrophils/100 WBC (Bld) 66.2 % Normal 47-70 [facility] Comment on above: Performed By: #### L 100.0200, L400.0100, L500.2900 #### [facility] [address] [place], [address] NRBC # 0.00 10 3/uL Normal 0-5 [facility] Comment on above: Performed By: #### L 100.0200, L400.0100, L500.2900 #### [facility] [address] [place], [address] Nucleated RBC (Bld) [#/Vol] 0 10*3/uL Normal 0-5 [facility] Comment on above: Performed By: #### L 100.0200, L400.0100, L500.2900 #### [facility] [address] [place], [address] Platelet mean volume (Bld) [Entitic vol] 10.5 fL Normal 6.2-12.0 [facility] Comment on above: Performed By: #### L 100.0200, L400.0100, L500.2900 #### [facility] [address] [place], [address] Platelets (Bld) [#/Vol] 297 10*3/uL Normal 150-450 [facility] Comment on above: Performed By: #### L 100.0200, L400.0100, L500.2900 #### [facility] [address] [place], [address] RBC (Bld) [#/Vol] 4.30 10*6/uL Normal 4.2-5.4 [facility] Comment on above: Performed By: #### L 100.0200, L400.0100, L500.2900 #### [facility] [address] [place], [address] RDW SD 42.1 fl Normal 35.1-43.9 [facility] Comment on above: Performed By: #### L 100.0200, L400.0100, L500.2900 #### [facility] [address] [place], [address] WBC (Bld) [#/Vol] 7.4 10*3/uL Normal 4.4-11.0 [facility] Comment on above: Performed By: #### L 100.0200, L400.0100, L500.2900 #### [facility] [address] [place], [address] Employee [employer] 4 Albumin [Mass/Vol] 3.6 g/dL Normal 3.2-5.0 [facility] Comment on above: Performed By: #### L 100.0200, L400.0100, L500.2900 ####[facility] [address] [place], [address] Albumin/Globulin [Mass ratio] 1.1 {ratio} Normal 0.9-2.4 [facility] Comment on above: Performed By: #### L 100.0200, L400.0100, L500.2900 ####[facility] [address] [place], [address] ALK P 55 U/L Normal 45-117 [facility] Comment on above: Performed By: #### L 100.0200, L400.0100, L500.2900 ####[facility] [address] [place], [address] ALT [Catalytic activity/Vol] 22 U/L Normal 13-56 [facility] Comment on above: Performed By: #### L 100.0200, L400.0100, L500.2900 ####[facility] [address] [place], [address] AST [Catalytic activity/Vol] 19 U/L Normal 15-37 [facility] Comment on above: Performed By: #### L 100.0200, L400.0100, L500.2900 ####[facility] [address] [place], [address] Bilirubin [Mass/Vol] 0.40 mg/dL Normal 0.20-1.00 [facility] Comment on above: Result Comment: For patients on eltrombopag therapy, use of Dimension [place] TBIL is not recommended. Performed By: #### L 100.0200, L400.0100, L500.2900 ####[facility] [address] [place], [address] Bilirubin.direct [Mass/Vol] 0.11 mg/dL Normal 0.00-0.30 [facility] Comment on above: Performed By: #### L 100.0200, L400.0100, L500.2900 ####[facility] [address] [place], [address] BUN/CRE 11.3 RATIO Normal 10-20 [facility] Comment on above: Performed By: #### L 100.0200, L400.0100, L500.2900 ####[facility] [address] [place], [address] CA,Total 9.1 mg/dL Normal 8.5-10.1 [facility] Comment on above: Performed By: #### L 100.0200, L400.0100, L500.2900 ####[facility] [address] [place], [address] Chloride [Moles/Vol] 110 mmol/L High 98-107 [facility] Comment on above: Performed By: #### L 100.0200, L400.0100, L500.2900 ####[facility] [address] [place], [address] CHOL:HDL 2.50 Normal [facility] Comment on above: Performed By: #### L 100.0200, L400.0100, L500.2900 ####[facility] [address] [place], [address] Cholesterol [Mass/Vol] 184 mg/dL Normal 200 [facility] Comment on above: Result Comment: <200 mg/dL Desirable 200-240 mg/dL Borderline >240 mg/dL High Risk Performed By: #### L 100.0200, L400.0100, L500.2900 ####[facility] [address] [place], [address] Cholesterol in HDL [Mass/Vol] 74 mg/dL Normal [facility] Comment on above: Result Comment: The drugs N-Acetylcysteine and Metamizole may falsely depress this assay. Reference Range HDL <40 mg/dL Low HDL Cholesterol HDL >or= 60 mg/dL High HDL Cholesterol Performed By: #### L 100.0200, L400.0100, L500.2900 ####[facility] [address] [place], [address] Cholesterol in LDL [Mass/Vol] 97 mg/dL Normal 0-130 [facility] Comment on above: Performed By: #### L 100.0200, L400.0100, L500.2900 ####[facility] [address] [place], [address] Cholesterol in VLDL [Mass/Vol] 13 mg/dL Normal 5-40 [facility] Comment on above: Performed By: #### L 100.0200, L400.0100, L500.2900 ####[facility] [address] [place], [address] CO2 [Moles/Vol] 24.0 mmol/L Normal 21.0-32.0 [facility] Comment on above: Performed By: #### L 100.0200, L400.0100, L500.2900 ####[facility] [address] [place], [address] Creatinine [Mass/Vol] 0.71 mg/dL Normal 0.55-1.02 [facility] Comment on above: Result Comment: The validity of the calculated GFR GFRAA in patients over 70 years has not been determined. Clinical correlation is essential. Performed By: #### L 100.0200, L400.0100, L500.2900 ####[facility] [address] [place], [address] EST GFR - AA 116 mL/min Normal >60 [facility] Comment on above: Result Comment: Afri can Micronesian GFR Calc Performed By: #### L 100.0200, L400.0100, L500.2900 ####[facility] [address] [place], [address] GAP 7 Normal 5-15 [facility] Comment on above: Performed By: #### L 100.0200, L400.0100, L500.2900 ####[facility] [address] [place], [address] GFR/1.73 sq M.predicted among non-blacks MDRD (S/P/Bld) [Vol rate/Area] 96 mL/min/{1.73_m2} Normal >60 [facility] Comment on above: Result Comment: Non- GFR Calc Performed By: #### L 100.0200, L400.0100, L500.2900 ####[facility] [address] [place], [address] Globulin (S) [Mass/Vol] 3.4 g/dL Normal 2.2-4.2 [facility] Comment on above: Performed By: #### L 100.0200, L400.0100, L500.2900 ####[facility] [address] [place], [address] Glucose [Mass/Vol] 77 mg/dL Normal 74-106 [facility] Comment on above: Performed By: #### L 100.0200, L400.0100, L500.2900 ####[facility] [address] [place], [address] LDH 202 U/L Normal 84-246 [facility] Comment on above: Performed By: #### L 100.0200, L400.0100, L500.2900 ####[facility] [address] [place], [address] Phosphate [Mass/Vol] 3.5 mg/dL Normal 2.5-4.9 [facility] Comment on above: Performed By: #### L 100.0200, L400.0100, L500.2900 ####[facility] [address] [place], [address] Potassium [Moles/Vol] 3.7 mmol/L Normal 3.5-5.1 [facility] Comment on above: Performed By: #### L 100.0200, L400.0100, L500.2900 ####[facility] [address] [place], [address] Sodium [Moles/Vol] 141 mmol/L Normal 136-145 [facility] Comment on above: Performed By: #### L 100.0200, L400.0100, L500.2900 ####[facility] [address] [place], [address] T PROT 7.0 g/dL Normal 6.4-8.2 [facility] Comment on above: Performed By: #### L 100.0200, L400.0100, L500.2900 ####[facility] [address] [place], [address] Triglyceride [Mass/Vol] 67 mg/dL Normal [facility] Comment on above: Result Comment: The drugs N-Acetylcysteine and Metamizole may falsely depress this assay. Serum Triglycerides Reference Interval Normal <150 mg/dL Borderline high 150 - 199 mg/dL High 200 - 499 mg/dL Very High > or = 500 mg/dL Performed By: #### L 100.0200, L400.0100, L500.2900 ####[facility] [address] [place], [address] Urea nitrogen [Mass/Vol] 8 mg/dL Normal 7-18 [facility] Comment on above: Performed By: #### L 100.0200, L400.0100, L500.2900 ####[facility] [address] [place], [address] URIC 3.3 mg/dL Normal 2.6-6.0 [facility] Comment on above: Result Comment: The drugs N-Acetylcysteine and Metamizole may falsely depress this assay. Performed By: #### L 100.0200, L400.0100, L500.2900 ####[facility] [address] [place], [address] Thyroid Stim Hormone (TSH)on 01-05-2024 TSH 0.66 uIU/mL Normal 0.358-3.74 [facility] Comment on above: Performed By: #### L 501.9520 #### [facility] [address] [place], [address] Urinalysis, Employeeon 01-04 BILIRUBIN URINE Negative Normal Negative [facility] Comment on above: Performed By: #### L 100.0200, L400.0100, L500.2900 #### [facility] [address] [place], [address] Clarity (U) Clear Normal Clear [facility] Comment on above: Performed By: #### L 100.0200, L400.0100, L500.2900 #### [facility] [address] [place], [address] Color (U) Yellow Normal Yellow [facility] Comment on above: Performed By: #### L 100.0200, L400.0100, L500.2900 #### [facility] [address] [place], [address] GLUCOSE, UR Normal Normal Normal [facility] Comment on above: Performed By: #### L 100.0200, L400.0100, L500.2900 #### [facility] [address] [place], [address] KETONE UR Negative Normal Negative [facility] Comment on above: Performed By: #### L 100.0200, L400.0100, L500.2900 #### [facility] [address] [place], [address] LEUK ESTERASE Negative Normal Negative [facility] Comment on above: Performed By: #### L 100.0200, L400.0100, L500.2900 #### [facility] [address] [place], [address] Nitrite Ql (U) Negative Normal Negative [facility] Comment on above: Performed By: #### L 100.0200, L400.0100, L500.2900 #### [facility] [address] [place], [address] OCCULT BLOOD-UR 10 /ul Abnormal Negative [facility] Comment on above: Performed By: #### L 100.0200, L400.0100, L500.2900 #### [facility] [address] [place], [address] pH UR 6.5 Normal 5.0 - 8.0 [facility] Comment on above: Performed By: #### L 100.0200, L400.0100, L500.2900 #### [facility] [address] [place], [address] PROT DIPSTX Negative Normal Negative [facility] Comment on above: Performed By: #### L 100.0200, L400.0100, L500.2900 #### [facility] [address] [place], [address] SP.GR. DIPSTX 1.010 Normal 1.002-1.030 [facility] Comment on above: Performed By: #### L 100.0200, L400.0100, L500.2900 #### [facility] [address] [place], [address] UROBILI Normal Normal Normal [facility] Comment on above: Performed By: #### L 100.0200, L400.0100, L500.2900 #### [facility] [address] [place], [address] PT D/C Summary (1)on 024 PT D/C Summary (1) [facility] [address] [place] [address] / REHABILITATION SERVICES DISCHARGE SUMMARY MR#: [id number] Acct: [id number] Name: PASTOR BARNETT Rep #: [id number] : 1980 43 From: Lisandro Love DPT, OCS, CSCS Referring DrLeatha: JESSICA Nieto Status: REG RCR Insurance: [facility] [employer]/[facility] SELF PAY INSURANCE Discharge Summary D/C summary: It has been my pleasure to treat PASTOR BARNETT referred by Jonnie Nieto PA-C, with the diagnosis of s/p bunionectomy for a total of 2 visit(s). Discharge Date: Please see the following information for a summary of their discharge status. Subjective Subjective: stopped in to [facility], declines education appointment or cut [...] please feel free to call me at [phone]. Thank you for the referral of this patient. Sincerely, Lisandro Love DPT, OSCAR, CSCS 07/05/23 1600 CC: JESSICA Nieto EBG Signed Normal [facility] Inital Evaluation (1) - PTon 06-13-2023 Inital Evaluation (1) - PT [facility] [facility] [place] [id number] / REHABILITATION SERVICES INITIAL EVALUATION MR#: [id number] Acct: [id number] Name: PASTOR BARNETT Rep #: [id number] : 1980 43 From: Lisandro Love DPT, OSCAR, APOORVA Referring Dr.: JESSICA Nieto Status: REG RCR Insurance: [employer]/[facility] SELF PAY INSURANCE Patient's Visit Information Visit [...] to be FAXED BACK to us at [phone] for Medicare purposes. For Medicare only, by signing this I certify the plan of care. Please let me know if there are questions or concerns regarding this plan of care. Physician Signature: Date: 06/13/23 0954 CC: JESSICA Nieto EBG Signed Normal [facility] Absolute lymphocyte countOrd ered By: Jonnie Nieto on 01-27-2023 Lymphocytes Auto (Unsp spec) [#/Vol] 4.73 10*3/uL 0.83-4.51 [facility] Basophil percentageOrdered B y: Jonnie Nieto on 01-27-2023 Basophils/100 WBC (Bld) 0.4 % 0-1 [facility] Eosinophils/100 WBC (Bld) 1.1 % 0-5 [facility] Neutrophils (Bld) [#/Vol] 3.9 10*3/uL 2.0-7.7 [facility] Neutrophils/100 WBC (Bld) 42.1 % 47-70 [facility] WBC (Bld) [#/Vol] 9.3 10*3/uL 4.4-11.0 [facility] Blood erythrocytes count (nu mber/volume)Ordered By: [facility] on 01-27-2023 RBC (Bld) [#/Vol] 4.33 10*6/uL 4.2-5.4 [facility] Blood hemoglobin measurement (mass/volume)Ordered By: [facility] on 01-27-2023 Hemoglobin (Bld) [Mass/Vol] 13.2 g/dL 12.0-15.0 [facility] Blood lymphocytes/100 leukoc ytesOrdered By: [facility] on 01-27-2023 Lymphocytes/100 WBC (Bld) 50.9 % 19-41 [facility] Blood monocytes/100 leukocyt esOrdered By: [facility] on 01-27-2023 Monocytes/100 WBC (Bld) 5.3 % 0-10 [facility] Blood platelet mean volumeOr dered By: [facility] on 01-27-2023 Platelet mean volume (Bld) [Entitic vol] 11.2 fL 6.2-12.0 [facility] Determination of erythrocyte mean corpuscular volume (MCV)Ordered By: [facility] on 01-27-2023 MCV (RBC) [Entitic vol] 92.6 fL 81-99 [facility] Hematocrit Auto (Bld) [Volum e fraction]Ordered By: [facility] on 01-27-2023 Hematocrit (Bld) [Volume fraction] 40.1 % 37-47 [facility] - Hematology and Cell countsOrdered By: [facility] on 01-27-2023 Erythrocyte distribution width (RBC) [Entitic vol] 43.8 fL 35.1-43.9 [facility] Erythrocyte distribution width (RBC) [Ratio] 12.8 % 11.6-14.6 [facility] Immature granulocytes/100 WBC (Bld) 0.200 % 0.0-0.9 [facility] Comment on above: IG% - Immature Granu locytes (promyelocytes, myelocytes and metamyelocytes) > 1% indicates that a LEFT SHIFT is Present. MCH (RBC) [Entitic mass] 30.5 pg 27.0-32.0 [facility] Nucleated RBC/100 WBC (Bld) [Ratio] 0 % 0-5 [facility] MCHC Auto (RBC) [Mass/Vol]Or dered By: Jonnie [place] on 01-27-2023 MCHC (RBC) [Mass/Vol] 32.9 g/dL 32-36 [facility] No Panel InformationOrdered By: Jonnie [place] on 01-27-2023 Thyroid Stimulating Hormone (TSH) 2.76 uIU/mL 0.358-3.74 [facility] Platelets bldOrdered By: Delicia bruno [place] on 01-27-2023 Platelets (Bld) [#/Vol] 266 10*3/uL 150-450 [facility] Absolute lymphocyte countOrd ered By: [facility] ASSESSMENT on 01-12-2023 Lymphocytes Auto (Unsp spec) [#/Vol] 1.74 10*3/uL 0.83-4.51 [facility] Absolute reticulocyte countO rdered By: [facility] ASSESSMENT on 01-12-2023 Reticulocytes (Bld) [#/Vol] 0.00 10*3/uL 0-5 [facility] Basophil percentageOrdered B y: HEALTH ASSESSMENT on 01-12-2023 Basophil percentage 3.5 mg/dL 2.5-4.9 [facility] Bilirubin [Mass/Vol] 0.30 mg/dL 0.20-1.00 [facility] Comment on above: For patients on eltr ombopag therapy, use of Dimension [place] TBIL is not recommended. Chloride [Moles/Vol] 108 mmol/L 98-107 [facility] Cholesterol [Mass/Vol] 190 mg/dL <200 [facility] Comment on above: <200 mg/dL Desirable 200-240 mg/dL Borderline >240 mg/dL High Risk Glucose [Mass/Vol] 85 mg/dL 74-106 [facility] LDH [Catalytic activity/Vol] 188 U/L 84-246 [facility] Neutrophils (Bld) [#/Vol] 6.4 10*3/uL 2.0-7.7 [facility] Potassium [Moles/Vol] 4.0 mmol/L 3.5-5.1 [facility] Protein [Mass/Vol] 6.9 g/dL 6.4-8.2 [facility] Sodium [Moles/Vol] 139 mmol/L 136-145 [facility] Triglyceride [Mass/Vol] 80 mg/dL <199 [facility] Comment on above: The drugs N-Acetylcy steine and Metamizole may falsely depress this assay.Serum Triglycerides Reference Interval Normal <150 mg/dL Borderline high 150 - 199 mg/dL High 200 - 499 mg/dL Very High > or = 500 mg/dL WBC (Bld) [#/Vol] 8.6 10*3/uL 4.4-11.0 [facility] Bilirubin Test strip Ql (U)O rdered By: [facility]ESSMENT on 01-12-2023 Bilirubin Ql (U) Negative Negative [facility] Blood erythrocytes count (nu mber/volume)Ordered By: HE[facility] ASSESSMENT on 01-12-2023 RBC (Bld) [#/Vol] 4.22 10*6/uL 4.2-5.4 [facility] Blood hemoglobin measurement (mass/volume)Ordered By: HE[facility] ASSESSMENT on 01-12-2023 Hemoglobin (Bld) [Mass/Vol] 12.5 g/dL 12.0-15.0 [facility] Blood platelet mean volumeOr dered By: HE[facility] ASSESSMENT on 01-12-2023 Platelet mean volume (Bld) [Entitic vol] 10.0 fL 6.2-12.0 [facility] Determination of erythrocyte mean corpuscular volume (MCV)Ordered By: [facility] ASSESSMENT on 01-12-2023 MCV (RBC) [Entitic vol] 94.8 fL 81-99 [facility] Direct bilirubinOrdered By: HE[facility] ASSESSMENT on 01-12-2023 Bilirubin.direct [Mass/Vol] 0.08 mg/dL 0.00-0.30 [facility] Hematocrit Auto (Bld) [Volum e fraction]Ordered By: HE[facility] ASSESSMENT on 01-12-2023 Hematocrit (Bld) [Volume fraction] 40.0 % 37-47 [facility] Ketones Test strip Ql (U)Ord ered By: HE[facility] ASSESSMENT on 01-12-2023 Ketones Ql (U) Negative Negative [facility] - Chemistry and C hemistry - challengeOrdered By: HEALTH ASSESSMENT on 01-12-2023 ALP [Catalytic activity/Vol] 50 U/L 45-117 [facility] ALT [Catalytic activity/Vol] 26 U/L 13-56 [facility] Cholesterol.total/Chol esterol in HDL [Mass ratio] 2.20 {ratio} [facility] CO2 [Moles/Vol] 26.0 mmol/L 21.0-32.0 [facility] Globulin (S) [Mass/Vol] 3.4 g/dL 2.2-4.2 [facility] Urea nitrogen/Creatinine [Mass ratio] 20.4 mg/mg 10-20 [facility] - Hematology and Cell countsOrdered By: HEALTH ASSESSMENT on 01-12-2023 Erythrocyte distribution width (RBC) [Entitic vol] 45.4 fL 35.1-43.9 [facility] Erythrocyte distribution width (RBC) [Ratio] 13.1 % 11.6-14.6 [facility] MCH (RBC) [Entitic mass] 29.6 pg 27.0-32.0 [facility] Nucleated RBC/100 WBC (Bld) [Ratio] 0 % 0-5 [facility] MCHC Auto (RBC) [Mass/Vol]Or dered By: HEALTH ASSESSMENT on 01-12-2023 MCHC (RBC) [Mass/Vol] 31.3 g/dL 32-36 [facility] Nitrite Test strip Ql (U)Ord ered By: HEALTH ASSESSMENT on 01-12-2023 Nitrite Ql (U) Negative Negative [facility] No Panel InformationOrdered By: HEALTH ASSESSMENT on 01-12-2023 Estimated GFR (MDRD) Amer 111 mL/min >60 [facility] Comment on above: GFR Calc Estimated GFR (MDRD) Non-Af Amer 92 mL/min >60 [facility] Comment on above: Non- GFR Calc Platelets bldOrdered By: J[facility]EE [facility] ASS[facility]MENT on 01-12-2023 Platelets (Bld) [#/Vol] 319 10*3/uL 150-450 [facility] Protein Test strip Ql (U)Ord ered By: HEALTH ASSESSMENT on 01-12-2023 Protein Ql (U) Negative Negative [facility] Segmented neutrophils/100 WB C Auto (Bld)Ordered By: HEALTH ASSESSMENT on 01-12-2023 Segmented neutrophils/100 WBC (Bld) 74.7 % 47-70 [facility] Serum or plasma albumin bailee urement (mass/volume)Ordered By: HEALTH ASSESSMENT on 01-12-2023 Albumin [Mass/Vol] 3.5 g/dL 3.2-5.0 [facility] Serum or plasma albumin/glob ulin mass ratioOrdered By: HEALTH ASSESSMENT on 01-12-2023 Albumin/Globulin [Mass ratio] 1.0 {ratio} 0.9-2.4 [facility] Serum or plasma calcium bailee urement (mass/volume)Ordered By: HEALTH ASSESSMENT on 01-12-2023 Calcium [Mass/Vol] 8.7 mg/dL 8.5-10.1 [facility] Serum or plasma cholesterol in HDL measurement (mass/volume)Ordered By: HEALTH ASSESSMENT on 01-12-2023 Cholesterol in HDL [Mass/Vol] 86 mg/dL >40 [facility] Comment on above: The drugs N-Acetylcy steine and Metamizole may falsely depress this assay. Reference Range HDL <40 mg/dL Low HDL Cholesterol HDL >or= 60 mg/dL High HDL Cholesterol Serum or plasma cholesterol in VLDL measurement (mass/volume)Ordered By: HEALTH ASSESSMENT on 01-12-2023 Cholesterol in VLDL [Mass/Vol] 16 mg/dL 5-40 [facility] Serum or plasma creatinine m easurement (mass/volume)Ordered By: HEALTH ASSESSMENT on 01-12-2023 Creatinine [Mass/Vol] 0.73 mg/dL 0.55-1.02 [facility] Comment on above: The validity of the calculated GFR & GFRAA in patients over 70 years has not been determined. Clinical correlation is essential. Serum or plasma low density lipoprotein (LDL) cholesterol measurement (mass/volume)Ordered By: HEALTH ASSESSMENT on 01-12-2023 Cholesterol in LDL [Mass/Vol] 88 mg/dL 0-130 [facility] Serum or plasma urea nitroge n measurement (mass/volume)Ordered By: HEALTH ASSESSMENT on 01-12-2023 Urea nitrogen [Mass/Vol] 15 mg/dL 7-18 [facility] Serum or plasma uric acid me asurement (mass/volume)Ordered By: HEALTH ASSESSMENT on 01-12-2023 Urate [Mass/Vol] 3.6 mg/dL 2.6-6.0 [facility] Comment on above: The drugs N-Acetylcy steine and Metamizole may falsely depress this assay. Thin prep Papanicolaou smear with manual screeningOrdered By: HEALTH ASSESSMENT on 01-12-2023 Thin prep Papanicolaou smear with manual screening 15 U/L 15-37 [facility] Thin prep Papanicolaou smear with manual screening 5 5-15 [facility] Urine blood detectionOrdered By: HEALTH ASSESSMENT on 01-12-2023 RBC Ql (U) 10 /ul Negative [facility] Urine clarityOrdered By: A [facility] ASSESSMENT on 01-12-2023 Clarity (U) Clear Clear [facility] Urine color determinationOrd ered By: HEALTH ASSESSMENT on 01-12-2023 Color (U) Yellow Yellow [facility] Urine glucose detectionOrder ed By: HEALTH ASSESSMENT on 01-12-2023 Glucose Ql (U) Normal mg/dl Normal [facility] Urine leukocyte esterase det ection by dipstickOrdered By: HEALTH ASSESSMENT on 01-12-2023 Leukocyte esterase Test strip Ql (U) Negative Negative [facility] Urine pHOrdered By: HEALTH A SSESSMENT on 01-12-2023 pH (U) 6.5 [pH] 5.0 - 8.0 [facility] Urine specific gravity measu rementOrdered By: HEALTH ASSESSMENT on 01-12-2023 Specific gravity (U) [Rel density] 1.015 1.002-1.030 [facility] Urobilinogen Auto test strip Ql (U)Ordered By: HEALTH ASSESSMENT on 01-12-2023 Urobilinogen Ql (U) Normal mg/dl Normal [facility] No Panel Informationon 01-18 Thyroid Stimulating Hormone (TSH) 1.77 uIU/mL 0.358-3.74 [facility] Work Phone: Absolute lymphocyte counton 12-25-2021 Lymphocytes Auto (Unsp spec) [#/Vol] 2.46 10*3/uL 0.83-4.51 [facility] Work Phone: Absolute reticulocyte counto n 12-25-2021 Reticulocytes (Bld) [#/Vol] 0.00 10*3/uL 0-5 [facility] Work Phone: [phone] Basophil percentageon 2021 Basophil percentage 3.7 mg/dL 2.5-4.9 [facility] Work Phone: [phone] Bilirubin [Mass/Vol] 0.30 mg/dL 0.20-1.00 [facility] Work Phone: Comment on above: For patients on eltr ombopag therapy, use of Dimension [place] TBIL is not recommended. Chloride [Moles/Vol] 109 mmol/L 98-107 [facility] Work Phone: [phone] Cholesterol [Mass/Vol] 159 mg/dL <200 [facility] Work Phone: Comment on above: <200 mg/dL Desirable 200-240 mg/dL Borderline >240 mg/dL High Risk Glucose [Mass/Vol] 79 mg/dL 74-106 [facility] Work Phone: [phone] Neutrophils (Bld) [#/Vol] 3.4 10*3/uL 2.0-7.7 [facility] Work Phone: [phone] Potassium [Moles/Vol] 3.9 mmol/L 3.5-5.1 [facility] Work Phone: [phone] Protein [Mass/Vol] 6.6 g/dL 6.4-8.2 [facility] Work Phone: [phone] Sodium [Moles/Vol] 139 mmol/L 136-145 [facility] Work Phone: [phone] Triglyceride [Mass/Vol] 68 mg/dL <199 [facility] Work Phone: Comment on above: The drugs N-Acetylcy steine and Metamizole may falsely depress this assay.Serum Triglycerides Reference Interval Normal <150 mg/dL Borderline high 150 - 199 mg/dL High 200 - 499 mg/dL Very High > or = 500 mg/dL WBC (Bld) [#/Vol] 6.4 10*3/uL 4.4-11.0 [facility] Work Phone: Bilirubin Test strip Ql (U)o n 12-25-2021 Bilirubin Ql (U) Negative Negative [facility] Work Phone: Blood erythrocytes count (nu mber/volume)on 12-25-2021 RBC (Bld) [#/Vol] 4.12 10*6/uL 4.2-5.4 [facility] Work Phone: Blood hemoglobin measurement (mass/volume)on 12-25-2021 Hemoglobin (Bld) [Mass/Vol] 11.8 g/dL 12.0-15.0 [facility] Work Phone: Blood platelet mean volumeon 12-25-2021 Platelet mean volume (Bld) [Entitic vol] 10.3 fL 6.2-12.0 [facility] Work Phone: Determination of erythrocyte mean corpuscular volume (MCV)on 12-25-2021 MCV (RBC) [Entitic vol] 88.8 fL 81-99 [facility] Work Phone: Direct bilirubinon Bilirubin.direct [Mass/Vol] 0.10 mg/dL 0.00-0.30 [facility] Work Phone: Hematocrit Auto (Bld) [Volum e fraction]on 12-25-2021 Hematocrit (Bld) [Volume fraction] 36.6 % 37-47 [facility] Work Phone: Ketones Test strip Ql (U)on 12-25-2021 Ketones Ql (U) Negative Negative [facility] Work Phone: Laboratory - Chemistry and C hemistry - challengeon 12-25-2021 ALP [Catalytic activity/Vol] 49 U/L 45-117 [facility] Work Phone: ALT [Catalytic activity/Vol] 21 U/L 13-56 [facility] Work Phone: Cholesterol.total/Chol esterol in HDL [Mass ratio] 2.50 {ratio} [facility] Work Phone: CO2 [Moles/Vol] 27.0 mmol/L 21.0-32.0 [facility] Work Phone: [phone] Globulin (S) [Mass/Vol] 3.1 g/dL 2.2-4.2 [facility] Work Phone: [phone] Urea nitrogen/Creatinine [Mass ratio] 13.0 mg/mg 10-20 [facility] Work Phone: [phone] Laboratory - Hematology and Cell countson 12-25-2021 Erythrocyte distribution width (RBC) [Entitic vol] 43.2 fL 35.1-43.9 [facility] Work Phone: [phone] Erythrocyte distribution width (RBC) [Ratio] 13.3 % 11.6-14.6 [facility] Work Phone: [phone] MCH (RBC) [Entitic mass] 28.6 pg 27.0-32.0 [facility] Work Phone: Nucleated RBC/100 WBC (Bld) [Ratio] 0 % 0-5 [facility] Work Phone: MCHC Auto (RBC) [Mass/Vol]on 12-25-2021 MCHC (RBC) [Mass/Vol] 32.2 g/dL 32-36 [facility] Work Phone: Nitrite Test strip Ql (U)on 12-25-2021 Nitrite Ql (U) Negative Negative [facility] Work Phone: No Panel Informationon 12-25 Estimated GFR (MDRD) Amer 120 mL/min >60 [facility] Work Phone: Comment on above: GFR Calc Estimated GFR (MDRD) Non-Af Amer 99 mL/min >60 [facility] Work Phone: Comment on above: Non- GFR Calc Platelets bldon 12-25-2021 Platelets (Bld) [#/Vol] 316 10*3/uL 150-450 [facility] Work Phone: Protein Test strip Ql (U)on 12-25-2021 Protein Ql (U) Negative Negative [facility] Work Phone: Segmented neutrophils/100 WB C Auto (Bld)on 12-25-2021 Segmented neutrophils/100 WBC (Bld) 52.2 % 47-70 [facility] Work Phone: Serum or plasma albumin bailee urement (mass/volume)on 12-25-2021 Albumin [Mass/Vol] 3.5 g/dL 3.2-5.0 [facility] Work Phone: Serum or plasma albumin/glob ulin mass ratioon 12-25-2021 Albumin/Globulin [Mass ratio] 1.1 {ratio} 0.9-2.4 [facility] Work Phone: Serum or plasma calcium bailee urement (mass/volume)on 12-25-2021 Calcium [Mass/Vol] 8.6 mg/dL 8.5-10.1 [facility] Work Phone: Serum or plasma cholesterol in HDL measurement (mass/volume)on 12-25-2021 Cholesterol in HDL [Mass/Vol] 63 mg/dL >40 [facility] Work Phone: Comment on above: The drugs N-Acetylcy steine and Metamizole may falsely depress this assay. Reference Range HDL <40 mg/dL Low HDL Cholesterol HDL >or= 60 mg/dL High HDL Cholesterol Serum or plasma cholesterol in VLDL measurement (mass/volume)on 12-25-2021 Cholesterol in VLDL [Mass/Vol] 14 mg/dL 5-40 [facility] Work Phone: Serum or plasma creatinine m easurement (mass/volume)on 12-25-2021 Creatinine [Mass/Vol] 0.69 mg/dL 0.55-1.02 [facility] Work Phone: Comment on above: The validity of the calculated GFR & GFRAA in patients over 70 years has not been determined. Clinical correlation is essential. Serum or plasma low density lipoprotein (LDL) cholesterol measurement (mass/volume)on 12-25-2021 Cholesterol in LDL [Mass/Vol] 82 mg/dL 0-130 [facility] Work Phone: Serum or plasma urea nitroge n measurement (mass/volume)on 12-25-2021 Urea nitrogen [Mass/Vol] 9 mg/dL 7-18 [facility] Work Phone: Serum or plasma uric acid me asurement (mass/volume)on 12-25-2021 Urate [Mass/Vol] 3.0 mg/dL 2.6-6.0 [facility] Work Phone: Comment on above: The drugs N-Acetylcy steine and Metamizole may falsely depress this assay. Thin prep Papanicolaou smear with manual screeningon 12-25-2021 Thin prep Papanicolaou smear with manual screening 14 U/L 15-37 [facility] Work Phone: Thin prep Papanicolaou smear with manual screening 3 5-15 [facility] Work Phone: Thin prep Papanicolaou smear with manual screening 174 U/L 84-246 [facility] Work Phone: Urine blood detectionon 11-28 RBC Ql (U) Negative Negative [facility] Work Phone: Urine clarityon 12-25-2021 Clarity (U) Clear Clear [facility] Work Phone: Urine color determinationon 12-25-2021 Color (U) Straw Yellow [facility] Work Phone: Urine glucose detectionon Glucose Ql (U) Normal mg/dl Normal [facility] Work Phone: [phone] Urine leukocyte esterase det ection by dipstickon 12-25-2021 Leukocyte esterase Test strip Ql (U) Negative Negative [facility] Work Phone: [phone] Urine pHon 12-25-2021 pH (U) 7.0 [pH] 5.0 - 8.0 [facility] Work Phone: [phone] Urine specific gravity measu rementon 12-25-2021 Specific gravity (U) [Rel density] 1.005 1.002-1.030 [facility] Work Phone: Urobilinogen Auto test strip Ql (U)on 12-25-2021 Urobilinogen Ql (U) Normal mg/dl Normal [facility] Work Phone: Encounters Encounter Date Encounter Type Care Provider Facility Start: 04-13-2024 Encounter for other preprocedural examination Ry Tirado [facility] Start: 03-22-2024 ambulatory [place]nie [place] Facil ity:[facility] Start: 03-22-2024 End: 03-22-2024 ambulatory Jonnie [place] PA Facility:[facility] Start: 03-01-2024 End[facility] Start: 02-07-2024 End: 02-07-2024 ambulatory [facility] Facility:[facility] Start: 02-01-2024 End: 02-01-2024 ambulatory Jonnie [place] PA Facility:[facility] Start: 01-25-2024 End: 01-26-2024 ambulatory Jonnie [place] PA Facility:[facility] Start: 01-25-2024 End: 01-25-2024 ambulatory Jonnie [place] PA Facility:[facility] Start: 01-20-[address] [facility] Start: 01-10-2024 ambulatory [facility] Facil [facility]y:[facility] Start: 01-05-2024 ambulatory [facility] Facil ity:[facility] Start: 01-05-2024 End: 01-05-2024 ambulatory [facility] Facility:[facility] Start: 09-07-[address] [facility] Start: 06-13-2023 End: 06-13-2023 Discharged Recurring [facility] Work Phone: Start: 06-13-2023 End: 06-13-2023 ambulatory [facility] Work Phone: Start: 01-27-2023 End: 01-27-2023 ambulatory [facility] Work Phone: Start: 01-27-2023 End: 01-27-2023 Patient encounter procedure Latonya Richard [facility] Work Phone: Start: 01-12-2023 Registered Referred [facility] Start: 01-18-2022 End: 01-18-2022 ambulatory [facility] Work Phone: Start: 01-18-2022 End: 01-18-2022 Patient encounter procedure Latonya Richard [facility] Start: 12-25-2021 Registered Referred [facility] Payers Date Payer Category Payer Self-pay [id number] 2023 Unknown [id number] 2013 Unknown [id number] 1980 Unknown [id number] 2.16.8 [id number] Unknown [id number] 2.16.8 [id number] Unknown [id number] 2.16.8 [id number] Unknown [id number] 2.16.8 [id number] Unknown [id number] 2.16.8 [id number] Unknown [id number] 2.16.8 [id number] Unknown [id number] 2.16.8 [id number] Unknown [id number] 2.16.8 [id number] Unknown [id number] 2.16.8 [id number] Unknown [id number] 2.16.8 [id number] Unknown [id number] 2.16.8 [id number] Unknown [id number] 2.16.8 [id number] Unknown [id number] 2.16.8 [id number] Unknown [id number] 2.16.8 [id number] Social History Date Type Detail Facility Start: 05-02-2014 End: 05-02-2014 Tobacco smoking status NHIS Unknown if ever smoked [facility] Start: 1980 Sex Assigned At Female [facility] Clinical Note 03-22-2024 Note Date & Type Note Facility 03-22-2024 Note [facility] Medical Records Department [address] [place] [address] History Physical Exam 03/22/24 0638 MR#: [id number] Acct: [id number] Name: PASTOR BARNETT Rep #: [id number] : 1980 43 From: Ry Friend DO PCP: Jonnie Nieto PA-C Status:[facility] Location: [place] [address] History and Physical Date of Admission: 03/22/24 PASTOR BARNETT, is a 43 F who presents to the office today for establishment with [facility]. She has a long history of [...] Patient is here today for establishment with [facility]. She has an extensive hx of [...] Profile 14 Today R19.7 - Diarrhea, unspecified HIOR Comprehensive Panel Today R19.7 - Diarrhea, unspecified Calprotectin, Stool Today R19.7 - Diarrhea, unspecified Immunoglobulins G/A/M/E Today R19.7 - Diarrhea, unspecified Ova and Parasites 8623 Today K58.9 - Irritable bowel syndrome without diarrhea, R19.7 - Diarrhea, unspecified Pa (more content not included)... [facility] Discharge summary 07-05-2023 Note Date & Type Note Facility 07-05-2023 Discharge summary Note Date/Time July 05, 2023 4:00pm [facility] [address] [place] [address] / REHABILITATION SERVICES DISCHARGE SUMMARY MR#: [id number] Acct: [id number] Name: PASTOR BARNETT Rep #: [id number] : 1980 43 From: Lisandro Love DPT, OCS, CSCS Referring DrLeatha: JESSICA Nieto Status: REG RCR Insurance: [employer] SELF PAY INSURANCE Discharge Summary D/C summary: It has been my pleasure to treat PASTOR BARNETT referred by Jonnie Nieto PA-C, with the diagnosis of s/p bunionectomy for a total of 2 visit(s). Discharge Date: Please see the following information for a summary of their discharge status. Subjective Subjective: stopped in to [facility], declines education appointment or cut [...] please feel free to call me at [phone]. Thank you for the referral of thispatient. Sincerely, Lisandro Love, DPT, OCS, CSCS <Electronically signed by Lisandro Love DPT, OCS, CSCS> 07/05/23 1600 CC: JESSICA Nieto ~ EBG Signed [facility] Work Phone: Evaluation note Note Date & Type Note Facility Evaluation note No assessment information availa ble [facility] Work Phone: Chief Complaint and Reason for [...] content) DATE CREATED AUTHOR 01/22/2024 Andrew Givens [facility] DATE CREATED AUTHOR 'S JEANINE ATION 04/16/2024 [facility] FOR RECORDS PERTAINING TO PATIENTS WHO ARE [...] BE BASED ON THE PRIMARY CLINICAL RECORDS. [facility] SH[employer] [facility]. provides no warranty or guarantee of the accuracy or completeness of information in this document.
== END | disposition home or self-care (01) ==
LOC: RAD 14:11
PROVIDERS: PCP Family Medicine; Referring Provider Family Medicine; Visit Provider Family Medicine
DX: M54.2 Cervicalgia (principal)
CPT/HCPCS: 72050

== ENCOUNTER → 2025-01-15 | Outpatient (CLI) | payer OTHER, SELFPAY | END | disposition home or self-care (01) | LOC: LAB 08:34 | PROVIDERS: PCP Family Medicine; Referring Provider Family Medicine; Visit Provider Family Medicine | DX: E03.9 Hypothyroidism, unspecified (principal) | CPT/HCPCS: 36415; 84443 ==